=== PATIENT | female | born 1960 ===

== ENCOUNTER 2017-12-06 12:45 | Inpatient (IN) | payer MEDICARE, OTHER ==
[2017-12-06 12:45] VITALS: BMI 26.0
--- NOTE | 2017-12-06 13:17 | C.PDOC ---
History Of Present Illness 57 year old female with PMHx of asthma and HTN brought to ED by ambulance for evaluation of productive cough with white sputum, sore throat, shortness of breath, and wheezing since yesterday. She states her symptoms feel similar to prior asthma exacerbations, and states she has been using her inhaler without relief. Patient denies chest pain, palpitations, fever, leg edema. Time Seen by Provider: 12/06/17 12:47 Chief Complaint (Nursing): Shortness Of Breath History Per: Patient History/Exam Limitations: no limitations Onset/Duration Of Symptoms: Days (1) Current Symptoms Are (Timing): Still Present Exacerbating Factor(s): Coughing Associated Symptoms: Productive Cough. denies: Heart Racing, Leg/Calf Pain, Ankle/Leg Swelling Additional History Per: Patient Past Medical History Reviewed: Historical Data, Nursing Documentation, Vital Signs Vital Signs: Last Vital Signs Temp 98.3 F 12/11/17 07:15 Pulse 87 12/11/17 07:15 Resp 20 12/11/17 07:15 BP 159/65 H 12/11/17 09:31 Pulse Ox 99 12/11/17 12:41 - Medical History PMH: Asthma, CHF, Diabetes, HTN, Hypercholesterolemia Surgical History: Cholecystectomy, Coronary Stent (x3) - [email or web address] Procedures CORONAR ARTERIOGR-2 CATH (06/02/14) LEFT HEART CARDIAC CATH (06/02/14) LT HEART ANGIOCARDIOGRAM (06/02/14) NON-INVASIVE MECHANICAL VENTILATION (06/02/14) OTHER ENDOSCOPY OF SM INTEST (06/02/14) Family History: States: No Known Family Hx - Social History Hx Tobacco Use: No (NO ANSWER) Hx Alcohol Use: No Hx Substance Use: No - Immunization History Hx Tetanus Toxoid Vaccination: No Hx Influenza Vaccination: No Hx Pneumococcal Vaccination: No Review Of Systems Constitutional: Negative for: Fever, Chills ENT: Positive for: Throat Pain. Negative for: Nose Congestion Cardiovascular: Negative for: Chest Pain, Palpitations, Edema Respiratory: Positive for: Cough, Shortness of Breath, Sputum, Wheezing. Negative for: Hemoptysis Gastrointestinal: Negative for: Nausea, Vomiting, Abdominal Pain Skin: Negative for: Rash Neurological: Negative for: Headache, Dizziness Physical Exam - Physical Exam Appears: Well, Non-toxic, Other (mildly uncomfortable) Skin: Normal Color, Warm, Dry Head: Normacephalic Eye(s): bilateral: Normal Inspection Oral Mucosa: Moist Throat: Normal, No Erythema, No Exudate Neck: Supple Cardiovascular: Rhythm Regular Respiratory: No Accessory Muscle Use, No Rales, No Rhonchi, Wheezing ( expiratory wheezing bilaterally), Other (coughs intermittently; speaking in full sentences) Gastrointestinal/Abdominal: Normal Exam, Bowel Sounds, Soft, No Tenderness Extremity: Normal ROM, No Pedal Edema, No Calf Tenderness Pulses: Left Dorsalis Pedis: Normal, Right Dorsalis Pedis: Normal Neurological/Psych: Oriented x3, Normal Speech ED Course And Treatment - Laboratory Results Result Diagrams: 12/10/17 06:29 12/10/17 06:29 ECG: Interpreted By Me, Viewed By Me (NSR 97 bpm, left axis deviation, intraventricular block, no acute ST changes - unchanged from prior EKG 07/06/15) ECG Interpretation: No Acute Changes O2 Sat by Pulse Oximetry: 99 (RA) Pulse Ox Interpretation: Normal Progress Note: Blood work, CXR, EKG ordered and reviewed. Patient given IV solumedrol, IV magnesium sulfate 2G and nebulizer treatments. Reevaluation Time: 16:25 Reassessment Condition: Improved (Patient reassessed, states she feels only mildly improved. On exam, she has improved air entry B/L with decreased wheezing. However best peak flow is only 150, Pox only 92-93% on RA. CXR shows possible right sided infiltrate? - will treat with IV Azithromycin and Rocephin.) - Physician Consult Information Physician Contacted: Georges Reyna Outcome Of Conversation: Discussed patient with Dr. Reyna, agrees with admission for asthma exacerbation. Disposition - Disposition Disposition: HOSPITALIZED Disposition Time: 16:37 Condition: STABLE - Clinical Impression Clinical Impression: Asthma exacerbation - Scribe Statement The provider has reviewed the documentation as recorded by the Scribe Rosalio Wasserman All medical record entries made by the Scribe were at my direction and personally dictated by me. I have reviewed the chart and agree that the record accurately reflects my personal performance of the history, physical exam, medical decision making, and the department course for this patient. I have also personally directed, reviewed, and agree with the discharge instructions and disposition. Decision To Admit - Pt Status Changed To: Hospital Disposition Of: Observation - . Bed Request Type: Telemetry Admitting Physician: Georges Reyna Patient Diagnosis: Asthma exacerbation
[2017-12-06] MEDS ORDERED: Albuterol 0.083% Inhal Sol (2.5 mg/3 mL) UD IH STA ×3 (13:20→14:19)
[2017-12-06] MEDS ORDERED: Albuterol 0.083% Inhal Sol (2.5 mg/3 mL) UD ONE ×4 (13:26→16:59)
[2017-12-06] MEDS ORDERED: Albuterol-Ipratrop 3 mg / 0.5 (3 ml) UD INH STA (14:18)
[2017-12-06] MEDS ORDERED: Albuterol-Ipratrop 3 mg / 0.5 (3 ml) UD ONE (14:35)
[2017-12-06] MEDS ORDERED: Magnesium Sulfate 1 gm in D5W 1 GM/100 ML BAG IV ONE (14:47)
[2017-12-06] MEDS ORDERED: MethylPREDNISolone 40 mg Vial IVP STA (14:48)
[2017-12-06] MEDS ORDERED: MethylPREDNISolone 40 mg Vial ONE (15:05)
[2017-12-06] MEDS ORDERED: Magnesium Sulfate 1 gm in D5W 2 GM/200 ML BAG IVPB ONE (15:05)
[2017-12-06 15:07] LABS: BASO # 0.1 K/uL (0.0-0.2); BASO % 0.6 % (0.0-2.0); EOS % 0.2 % (0.0-4.0); HEMOGLOBIN 10.6 g/dL (11.0-16.0); LYMPH # 1.3 K/uL (1.0-4.3); LYMPH % 10.4 % (20.0-40.0); MEAN CELL VOLUME 78.3 fL (81.0-99.0); MEAN CORPUSCULAR HEMOGLOBIN 26.1 pg (27.0-31.0); MEAN CORPUSCULAR HGB CONC 33.3 g/dL (33.0-37.0); MEAN PLATELET VOLUME 8.2 fL (7.2-11.7); MONO # 0.7 K/uL (0.0-0.8); MONO % 5.4 % (0.0-10.0); NEUT # 10.3 K/uL (1.8-7.0); NEUT % 83.4 % (50.0-75.0); RBC 4.06 Mil/uL (3.80-5.20); RED CELL DISTRIBUTION WIDTH 14.8 % (11.5-14.5); WHITE BLOOD COUNT 12.4 K/uL (4.8-10.8)
[2017-12-06 15:26] LABS: ALB/GLOB RATIO 1.2 (1.0-2.1); ALBUMIN 4.3 g/dL (3.5-5.0); ALT/SGPT 69 U/L (9-52); AST/SGOT 61 U/L (14-36); BLOOD UREA NITROGEN 20 mg/dL (7-17); CALCIUM 9.1 mg/dl (8.6-10.4); GFR AFRICAN-AMERICAN > 60; GFR NON-AFRICAN AMERICAN 57
[2017-12-06 16:17] LABS: B-TYPE NATRIURETIC PEPTIDE 788 pg/mL (0-900)
[2017-12-06] MEDS ORDERED: Azithromycin 500 MG in Sodium Chloride 0.9% 250 ML IVPB STA (16:43)
[2017-12-06] MEDS ORDERED: cefTRIAXone IV 1 gm in Dextros 50 ML IV STA (16:43)
[2017-12-06] MEDS: Albuterol 0.083% Inhal Sol (2.5 mg/3 mL) UD IH SCH ×2 (17:01→19:15)
[2017-12-06] MEDS ORDERED: Azithromycin 500 MG in Sodium Chloride 0.9% 250 ML IVPB ONE (18:00)
--- NOTE | 2017-12-06 18:01 | RAD ---
HISTORY: PRODUCTIVE COUGH, SOB COMPARISON: No prior. TECHNIQUE: Chest PA and lateral FINDINGS: LUNGS: Interval development of reticular interstitial infiltrate more prominent in the lower half of the lungs. . No focal consolidation. PLEURA: No significant pleural effusion identified. No pneumothorax apparent. CARDIOVASCULAR: Normal. OSSEOUS STRUCTURES: No significant abnormalities. VISUALIZED UPPER ABDOMEN: Normal. OTHER FINDINGS: None. IMPRESSION: Reticular interstitial infiltrate more prominent in the lower portions of the lungs. No focal consolidation.
[2017-12-06] MEDS: MethylPREDNISolone 40 mg Vial IVP SCH (21:10)
[2017-12-06] MEDS: (Novolog) Insulin Aspart, Recombinant 100 u/ml 10 ml vial SC SCH (22:03)
[2017-12-06] MEDS ORDERED: (Novolin 70/30) NPH/Regular 70/30 Units/ml 10 ml vial SC ONE (23:25)
[2017-12-07] MEDS: Albuterol-Ipratrop 3 mg / 0.5 (3 ml) UD INH SCH ×4 (01:19→20:00)
[2017-12-07] MEDS ORDERED: (Novolin R) Insulin Human Regular 100 units/ml vial SC ONE (02:01)
[2017-12-07] MEDS ORDERED: guaiFENesin DM 200 mg-20 mg/10 ml UD PO ONE (02:42)
[2017-12-07] MEDS: MethylPREDNISolone 40 mg Vial IVP SCH ×3 (05:15→21:51)
[2017-12-07 06:42] LABS: HEMOGLOBIN 9.8 g/dL (11.0-16.0); MEAN CELL VOLUME 78.9 fL (81.0-99.0); MEAN CORPUSCULAR HEMOGLOBIN 26.1 pg (27.0-31.0); MEAN CORPUSCULAR HGB CONC 33.1 g/dL (33.0-37.0); MEAN PLATELET VOLUME 8.5 fL (7.2-11.7); RBC 3.74 Mil/uL (3.80-5.20); WHITE BLOOD COUNT 9.4 K/uL (4.8-10.8)
[2017-12-07 07:05] LABS: ALB/GLOB RATIO 1.2 (1.0-2.1); ALBUMIN 3.9 g/dL (3.5-5.0); ALT/SGPT 53 U/L (9-52); AST/SGOT 34 U/L (14-36); BLOOD UREA NITROGEN 32 mg/dL (7-17); CALCIUM 8.8 mg/dl (8.6-10.4); GFR AFRICAN-AMERICAN > 60; GFR NON-AFRICAN AMERICAN 51
[2017-12-07] MEDS ORDERED: (Novolog) Insulin Aspart, Recombinant 100 u/ml 10 ml vial SC STA (07:05)
[2017-12-07] MEDS ORDERED: (Novolin 70/30) NPH/Regular 70/30 Units/ml 10 ml vial SC SCH (07:30)
[2017-12-07] MEDS: (Novolin 70/30) NPH/Regular 70/30 Units/ml 10 ml vial SC SCH ×3 (08:22→17:40)
[2017-12-07] MEDS: (Novolog) Insulin Aspart, Recombinant 100 u/ml 10 ml vial SC SCH ×4 (08:23→21:47)
[2017-12-07] MEDS: Potassium Chloride 10 mEq ER Tab PO SCH (09:34)
[2017-12-07] MEDS: Enoxaparin 30 mg Syringe SC SCH (09:35)
[2017-12-07] MEDS: Azithromycin 500 MG in Sodium Chloride 0.9% 250 ML IVPB SCH (11:22)
[2017-12-07] MEDS: guaiFENesin DM 200 mg-20 mg/10 ml UD PO PRN ×2 (16:34→21:51)
--- NOTE | 2017-12-07 16:40 | CARD ---
APPROVED REPORT EKG Measurement Heart [id number] <Conclusion> Normal sinus rhythm Left axis deviation Nonspecific intraventricular block Cannot rule out Septal infarct, age undetermined T wave abnormality, consider lateral ischemia Abnormal ECG
[2017-12-08] MEDS: Albuterol-Ipratrop 3 mg / 0.5 (3 ml) UD INH SCH ×5 (00:49→19:36)
[2017-12-08] MEDS: MethylPREDNISolone 40 mg Vial IVP SCH ×3 (05:59→21:48)
[2017-12-08] MEDS: guaiFENesin DM 200 mg-20 mg/10 ml UD PO PRN ×2 (06:02→16:46)
[2017-12-08] MEDS: (Novolog) Insulin Aspart, Recombinant 100 u/ml 10 ml vial SC SCH ×4 (06:33→21:47)
[2017-12-08 08:10] LABS: BASO % 0.1 % (0.0-2.0); HEMOGLOBIN 10.1 g/dL (11.0-16.0); LYMPH # 1.2 K/uL (1.0-4.3); LYMPH % 6.2 % (20.0-40.0); MEAN CELL VOLUME 77.5 fL (81.0-99.0); MEAN CORPUSCULAR HEMOGLOBIN 26.5 pg (27.0-31.0); MEAN CORPUSCULAR HGB CONC 34.2 g/dL (33.0-37.0); MEAN PLATELET VOLUME 8.3 fL (7.2-11.7); MONO # 1.1 K/uL (0.0-0.8); MONO % 5.3 % (0.0-10.0); NEUT # 17.5 K/uL (1.8-7.0); NEUT % 88.4 % (50.0-75.0); PLATELET COUNT 350 K/uL (130-400); RED CELL DISTRIBUTION WIDTH 15.2 % (11.5-14.5)
[2017-12-08 08:12] LABS: WHITE BLOOD COUNT 19.8 K/uL (4.8-10.8)
[2017-12-08 08:25] LABS: BLOOD UREA NITROGEN 33 mg/dL (7-17); CALCIUM 8.9 mg/dl (8.6-10.4); GFR AFRICAN-AMERICAN > 60; GFR NON-AFRICAN AMERICAN 57
--- NOTE | 2017-12-08 08:53 | HP ---
HISTORY OF PRESENT ILLNESS: This is a 57-year-old [place] female with history of multiple medical problems including coronary artery disease, type 2 diabetes mellitus, hypertension, presented to the emergency room with symptoms of shortness of breath and wheezing that has been not improving in spite of using of home medications for three days. The patient was evaluated in the emergency room and she was given both steroid as well as albuterol and still she was hypoxic with O2 saturation on the lower 90s and not feeling well. The patient was started on steroids, Rocephin and azithromycin and admitted for further management. REVIEW OF SYSTEM: Other review of system is negative. ALLERGIES: POSITIVE FOR ENALAPRIL. MEDICATIONS: Reviewed as per AUG. PAST MEDICAL HISTORY: Hypertension, type 2 diabetes mellitus, coronary artery disease, hypercholesterolemia, diabetic neuropathy. SOCIAL HISTORY: No history of smoking, EtOH or substance abuse. FAMILY HISTORY: Not contributory. PHYSICAL EXAMINATION: GENERAL: The patient is in bed, not in any cardiopulmonary distress. VITAL SIGNS: Blood pressure 147/53, temperature 98.2, respiratory rate 20, and pulse 86. HEENT: Pupils equal, reactive to light. Normal-appearing mucosa of the conjunctivae, oropharynx and nasal membrane mucosa. NECK: Supple. No JVD. No carotid bruit. No lymph nodes. N thyromegaly. CHEST AND LUNGS: Bilateral symmetrical expansion. Good air exchange. No rales. There are scattered rhonchi all over lung landers. CARDIOVASCULAR SYSTEM: PMI not localized. S1, S2. No additional sounds. ABDOMEN: Normoactive bowel sounds. No tenderness. No organomegaly. No masses. EXTREMITIES: No cyanosis, no clubbing, no edema. REPAIR CLERK: Alert, awake, oriented x3. No neurological deficit could be appreciated. ASSESSMENT: Exacerbation of chronic obstructive pulmonary disease, possible atypical pneumonia, coronary artery disease, type 2 diabetes mellitus, uncontrolled. PLAN: Continue insulin and metformin. Continue current IV antibiotics and steroid. Check peak flow pre and post treatment. Matt MD Axel
[2017-12-08 08:57] LABS: ANISOCYTOSIS SLIGHT; BANDS 1 % (0-2); EOSINOPHIL 1 % (0-4); HYPOCHROMIC SLIGHT; LYMPHOCYTE 8 % (20-40); MICROCYTOSIS SLIGHT; MONOCYTE 4 % (0-10); NEUTROPHIL 85 % (50-75); PLATELET ESTIMATE NORMAL (NORMAL); POIKILOCYTOSIS SLIGHT; REACTIVE LYMPHOCYTES 1 % (0-0); TOTAL CELLS COUNTED 100
[2017-12-08 08:58] LABS: OVALOCYTES SLIGHT
[2017-12-08] MEDS: Enoxaparin 30 mg Syringe SC SCH (10:24)
[2017-12-08] MEDS: (Novolin 70/30) NPH/Regular 70/30 Units/ml 10 ml vial SC SCH ×2 (10:25→17:59)
[2017-12-08] MEDS: Potassium Chloride 10 mEq ER Tab PO SCH (10:26)
[2017-12-08] MEDS: Azithromycin 500 MG in Sodium Chloride 0.9% 250 ML IVPB SCH (11:40)
[2017-12-09] MEDS: Albuterol-Ipratrop 3 mg / 0.5 (3 ml) UD INH SCH ×4 (01:30→19:36)
[2017-12-09] MEDS: MethylPREDNISolone 40 mg Vial IVP SCH ×3 (06:18→22:05)
[2017-12-09] MEDS: (Novolog) Insulin Aspart, Recombinant 100 u/ml 10 ml vial SC SCH ×4 (08:03→22:04)
[2017-12-09] MEDS: Potassium Chloride 10 mEq ER Tab PO SCH (09:17)
[2017-12-09] MEDS: Enoxaparin 30 mg Syringe SC SCH (09:17)
[2017-12-09] MEDS ORDERED: Albuterol-Ipratrop 3 mg / 0.5 (3 ml) UD INH STA (09:20)
[2017-12-09] MEDS: (Novolin 70/30) NPH/Regular 70/30 Units/ml 10 ml vial SC SCH ×2 (09:30→17:16)
--- NOTE | 2017-12-09 22:49 | PN ---
DATE: 12/09/2017 DAILY PROGRESS NOTE SUBJECTIVE: The patient was seen today, 12/09/2017. She is slightly improving and less wheezing and less shortness of breath at rest but she has shortness of breath on exertion. OBJECTIVE: VITAL SIGNS: Blood pressure 163/69, temperature 97.7, respiratory rate 20, and pulse 92. HEENT: Pupils equal, reactive to light and accommodation. NECK: Supple. No JVD. No carotid bruit. No lymph node. No thyromegaly. CHEST AND LUNGS: Bilateral symmetrical expansion. Decreased rhonchi bilaterally. CARDIOVASCULAR SYSTEM: PMI not localized. S1, S2. No additional sounds. ABDOMEN: Normoactive bowel sounds. No tenderness. No organomegaly. No masses. EXTREMITIES: No cyanosis, no clubbing, no edema. TOOL RENTAL TECHNICIAN: Alert, awake, and oriented x3. No neurological deficit could be appreciated. ASSESSMENT: Hypertension, uncontrolled type 2 diabetes mellitus, exacerbation of bronchial asthma. PLAN: We will resume bisoprolol and continue current steroid as well as bronchodilator. Georges Reyna MD
--- NOTE | 2017-12-09 23:26 | PN ---
DATE: 12/08/2017 DAILY PROGRESS NOTE SUBJECTIVE: The patient was seen on 12/08/2017. She still has wheezing and cough and shortness of breath both in exertion as well as at rest. Blood sugar also was in the region of the 400-500. OBJECTIVE: VITAL SIGNS: Blood pressure 151/67, temperature 98.4, respiratory rate 20, and pulse 89. HEENT: Pupils equal, reactive to light. Normal-appearing mucosa of the conjunctivae, oropharynx and nasal membrane mucosa. NECK: Supple. No JVD. No carotid bruit. No lymph node. No thyromegaly. CHEST AND LUNGS: Bilateral symmetrical expansion. Diffuse scattered rhonchi all over lung field with prolonged expiration. CARDIOVASCULAR SYSTEM: PMI not localized. S1, S2. No additional sounds. ABDOMEN: Normoactive bowel sounds. No tenderness. No organomegaly. No masses. EXTREMITIES: No cyanosis, no clubbing, no edema. DICER MACHINE OPERATOR: Alert, awake, oriented x2 and no neurological deficit could be appreciated. ASSESSMENT: 1. Exacerbation of bronchial asthma. 2. History of coronary artery disease, status post percutaneous coronary intervention. 3. Hypertension. 4. Uncontrolled type 2 diabetes mellitus. PLAN: Continue current dose of steroid after it was decreased. Continue bronchodilators and current medications. Georges Reyna MD
[2017-12-10] MEDS: guaiFENesin DM 200 mg-20 mg/10 ml UD PO PRN ×4 (00:09→15:02)
[2017-12-10] MEDS: Albuterol-Ipratrop 3 mg / 0.5 (3 ml) UD INH SCH ×4 (02:48→19:27)
[2017-12-10] MEDS: MethylPREDNISolone 40 mg Vial IVP SCH ×3 (05:24→22:20)
[2017-12-10 06:48] LABS: BASO % 0.2 % (0.0-2.0); HEMOGLOBIN 10.5 g/dL (11.0-16.0); LYMPH # 1.6 K/uL (1.0-4.3); LYMPH % 8.5 % (20.0-40.0); MEAN CELL VOLUME 78.2 fL (81.0-99.0); MEAN CORPUSCULAR HEMOGLOBIN 25.8 pg (27.0-31.0); MEAN PLATELET VOLUME 8.4 fL (7.2-11.7); MONO # 1.3 K/uL (0.0-0.8); MONO % 6.6 % (0.0-10.0); NEUT # 16.1 K/uL (1.8-7.0); NEUT % 84.7 % (50.0-75.0); PLATELET COUNT 395 K/uL (130-400); RBC 4.07 Mil/uL (3.80-5.20); WHITE BLOOD COUNT 19.1 K/uL (4.8-10.8)
[2017-12-10 08:15] LABS: BLOOD UREA NITROGEN 32 mg/dL (7-17); CALCIUM 9.2 mg/dl (8.6-10.4); GFR AFRICAN-AMERICAN > 60; GFR NON-AFRICAN AMERICAN > 60
[2017-12-10] MEDS: (Novolog) Insulin Aspart, Recombinant 100 u/ml 10 ml vial SC SCH ×4 (08:41→21:32)
[2017-12-10] MEDS: (Novolin 70/30) NPH/Regular 70/30 Units/ml 10 ml vial SC SCH ×2 (09:32→18:35)
[2017-12-10] MEDS: Potassium Chloride 10 mEq ER Tab PO SCH (09:37)
[2017-12-10] MEDS: Enoxaparin 30 mg Syringe SC SCH (09:38)
[2017-12-10 10:08] LABS: NEUTROPHIL 86 % (50-75); TOTAL CELLS COUNTED 100
[2017-12-10 10:09] LABS: ANISOCYTOSIS SLIGHT; HYPOCHROMIC SLIGHT; LYMPHOCYTE 7 % (20-40); MONOCYTE 7 % (0-10); OVALOCYTES SLIGHT; PLATELET ESTIMATE NORMAL (NORMAL)
[2017-12-10] MEDS: Azithromycin 500 MG in Sodium Chloride 0.9% 250 ML IVPB SCH (19:20)
--- NOTE | 2017-12-10 20:49 | PN ---
DATE: 12/10/2017 SUBJECTIVE: The patient is seen today, 08/12/2017. She still has significant cough and shortness of breath and wheezing. OBJECTIVE: VITAL SIGNS: Blood pressure is 182/70, temperature 98.3, respiratory rate 20, and pulse 100. HEENT: Normal-appearing mucosa of the conjunctivae. NECK: Supple. No JVD. No carotid bruit. No lymph node. No thyromegaly. CHEST AND LUNGS: Bilateral symmetrical expansion. Good air exchange. Diffuse scattered rhonchi with prolonged expiration all over lung landers. CARDIOVASCULAR SYSTEM: PMI not localized. S1, S2. No additional sounds. ABDOMEN: Normoactive bowel sounds. No tenderness. No organomegaly. No masses. EXTREMITIES: No cyanosis, no clubbing, no edema. CENTRAL NERVOUS SYSTEM: Alert, awake, oriented x2. No neurological deficit could be appreciated. ASSESSMENT: Clinical pneumonia, exacerbation of chronic obstructive pulmonary disease; type 2 diabetes mellitus, uncontrolled; coronary artery disease. PLAN: Continue current medications and management. Decrease Solu-Medrol to 20 mg every 12 hours. Continue IV antibiotics. Cardiology consult, Dr. Villegas. I would be away from 12/11/2017 to 12/14/2017 and the hospitalist will be covering. Georges Reyna MD
[2017-12-11] MEDS: guaiFENesin DM 200 mg-20 mg/10 ml UD PO PRN ×4 (00:19→21:32)
[2017-12-11] MEDS: Albuterol-Ipratrop 3 mg / 0.5 (3 ml) UD INH SCH ×4 (01:25→19:36)
[2017-12-11] MEDS: (Novolog) Insulin Aspart, Recombinant 100 u/ml 10 ml vial SC SCH ×4 (08:30→21:27)
[2017-12-11] MEDS: Potassium Chloride 10 mEq ER Tab PO SCH (09:31)
[2017-12-11] MEDS: Enoxaparin 30 mg Syringe SC SCH (09:32)
[2017-12-11] MEDS: MethylPREDNISolone 40 mg Vial IVP SCH (09:32)
[2017-12-11] MEDS: (Novolin 70/30) NPH/Regular 70/30 Units/ml 10 ml vial SC SCH ×2 (09:47→17:38)
--- NOTE | 2017-12-11 16:10 | CP.PCM.PN ---
<Kalina Wray - Last Filed: 12/11/17 16:15> Subjective - Date & Time of Evaluation Date of Evaluation: 12/11/17 Time of Evaluation: 07:00 - Subjective Subjective: PGY2- Medicine note for Dr. Steele Patient seen and examined at bedside and in no acute distress. Patient says she is feeling better, but can still hear herself wheezing sometimes especially on expiration. Patient's cough is improving and the phlegm is less yellow and more white. Patient denies headache, chest pain, shortness of breath, abdominal pain , nausea, vomiting, constipation, or diarrhea. Objective - Vital Signs/Intake and Output Vital Signs (last 24 hours): Temp Pulse Resp BP Pulse Ox 97.5 F L 105 H 20 169/83 H 98 12/11/17 15:05 12/11/17 15:05 12/11/17 15:05 12/11/17 15:05 12/11/17 15:05 Intake and Output: 12/11/17 12/11/17 06:59 18:59 Intake Total 450 600 Balance 450 600 - Medications Medications: Current Medications Albuterol/Ipratropium (Duoneb 3 Mg/0.5 Mg (3 Ml) Ud) 3 ml INH RQ6 [facility] Last Admin: 12/11/17 13:18 Dose: 3 ml Aspirin (Aspirin Chewable) 81 mg PO DAILY [facility] Last Admin: 12/11/17 09:31 Dose: 81 mg Bisoprolol Fumarate (Zebeta) 5 mg PO BID [facility] Last Admin: 12/11/17 09:31 Dose: 5 mg Enoxaparin Sodium (Lovenox) 30 mg SC DAILY [facility] Last Admin: 12/11/17 09:32 Dose: 30 mg Furosemide (Lasix) 20 mg IVP DAILY [facility] Last Admin: 12/11/17 09:31 Dose: 20 mg Guaifenesin/Dextromethorphan (Robitussin Dm) 10 ml PO Q4H PRN PRN Reason: Cough and congestion Last Admin: 12/11/17 09:31 Dose: 10 ml Hydralazine HCl (Apresoline) 25 mg PO DAILY [facility] Last Admin: 12/11/17 09:31 Dose: 25 mg Azithromycin 500 mg/ Sodium (Chloride) 250 mls @ 250 mls/hr IVPB DAILY@1800 PETER PRN Reason: Protocol Last Admin: 12/10/17 19:20 Dose: 250 mls/hr Ceftriaxone Sodium 1 gm/ (Sodium Chloride) 100 mls @ 100 mls/hr IVPB DAILY@ 1600 PETER PRN Reason: Protocol Last Admin: 12/10/17 17:35 Dose: 100 mls/hr Insulin Aspart (Novolog) 0 unit SC ACHS [facility] PRN Reason: Protocol Last Admin: 12/11/17 11:47 Dose: 12 units Insulin Human Isoph/Insulin Regular (Novolin 70/30 (70/30 Units/Ml) 10 Ml) 40 units SC BID [facility] Last Admin: 12/11/17 09:47 Dose: 40 units Losartan Potassium (Cozaar) 100 mg PO DAILY [facility] Last Admin: 12/11/17 09:31 Dose: 100 mg Metformin HCl (Glucophage) 500 mg PO TIDCC [facility] Last Admin: 12/11/17 11:48 Dose: 500 mg Methylprednisolone (Solu-Medrol) 20 mg IVP DAILY [facility] Potassium Chloride (Klor-Con 10) 10 meq PO DAILY [facility] Last Admin: 12/11/17 09:31 Dose: 10 meq Rosuvastatin Calcium (Crestor) 20 mg PO HS [facility] Last Admin: 12/10/17 22:20 Dose: 20 mg Sitagliptin Phosphate (Januvia) 100 mg PO DAILY [facility] Last Admin: 12/11/17 09:31 Dose: 100 mg - Labs Labs: 12/10/17 06:29 12/10/17 06:29 - Constitutional Appears: Well, Non-toxic, No Acute Distress - Head Exam Head Exam: ATRAUMATIC, NORMAL INSPECTION, NORMOCEPHALIC - Eye Exam Eye Exam: EOMI, Normal appearance - ENT Exam ENT Exam: Mucous Membranes Moist - Respiratory Exam Respiratory Exam: Wheezes, NORMAL BREATHING PATTERN - Cardiovascular Exam Cardiovascular Exam: REGULAR RHYTHM, RRR, +S1, +S2 - GI/Abdominal Exam GI & Abdominal Exam: Soft, Normal Bowel Sounds. absent: Tenderness - Extremities Exam Extremities Exam: Full ROM. absent: Normal Inspection - Back Exam Back Exam: NORMAL INSPECTION - Neurological Exam Neurological Exam: Alert, Awake, Oriented x3 - Psychiatric Exam Psychiatric exam: Normal Affect, Normal Mood - Skin Skin Exam: Intact, Normal Color, Warm Assessment and Plan - Assessment and Plan (Free Text) Assessment: Pneumonia cxray 12/06: reticular interstitial infiltrate more prominent in lower portions of the lungs. No focal consolidation. continue antibiotics COPD exacerbation Solumedrol decreased to 20mg po daily for 12/12 (from BID) Duonebs HTN Hydralazine 25mg po daily Cozaar 100mg po daily HLD Cozaar 100mg po daily DMII Metformin 500mg po tid ISS Novolin 40 u sc bid Januvia 100mg po daily accuchecks CAD ASA 81mg po daily Cozaar 100mg po daily Cozaar 100mg po daily f/u cardiology consult, Dr. Villegas, help appreciated Prophylaxis Lovenox <Lisa Steele V - Last Filed: 12/12/17 18:52> Objective - Vital Signs/Intake and Output Vital Signs (last 24 hours): Temp Pulse Resp BP Pulse Ox 98.1 F 88 18 144/82 97 12/12/17 15:37 12/12/17 15:37 12/12/17 15:37 12/12/17 15:37 12/12/17 15:37 - Medications Medications: Current Medications Albuterol/Ipratropium (Duoneb 3 Mg/0.5 Mg (3 Ml) Ud) 3 ml INH RQ6 [facility] Last Admin: 12/12/17 14:14 Dose: 3 ml Aspirin (Aspirin Chewable) 81 mg PO DAILY [facility] Last Admin: 12/12/17 10:30 Dose: 81 mg Bisoprolol Fumarate (Zebeta) 5 mg PO BID [facility] Last Admin: 12/12/17 17:23 Dose: 5 mg Enoxaparin Sodium (Lovenox) 30 mg SC DAILY [facility] Last Admin: 12/12/17 10:28 Dose: 30 mg Furosemide (Lasix) 20 mg IVP DAILY [facility] Last Admin: 12/12/17 10:30 Dose: 20 mg Guaifenesin/Dextromethorphan (Robitussin Dm) 10 ml PO Q4H PRN PRN Reason: Cough and congestion Last Admin: 12/12/17 10:39 Dose: 10 ml Hydralazine HCl (Apresoline) 25 mg PO DAILY [facility] Last Admin: 12/12/17 10:28 Dose: 25 mg Azithromycin 500 mg/ Sodium (Chloride) 250 mls @ 250 mls/hr IVPB DAILY@1800 [facility] PRN Reason: Protocol Last Admin: 12/12/17 17:23 Dose: 250 mls/hr Ceftriaxone Sodium 1 gm/ (Sodium Chloride) 100 mls @ 100 mls/hr IVPB DAILY@ 1600 PETER PRN Reason: Protocol Last Admin: 12/12/17 16:22 Dose: 100 mls/hr Insulin Aspart (Novolog) 0 unit SC ACHS [facility] PRN Reason: Protocol Insulin Human Isoph/Insulin Regular (Novolin 70/30 (70/30 Units/Ml) 10 Ml) 40 units SC BID [facility] Last Admin: 12/12/17 17:24 Dose: 40 units Losartan Potassium (Cozaar) 100 mg PO DAILY [facility] Last Admin: 12/12/17 10:30 Dose: 100 mg Metformin HCl (Glucophage) 500 mg PO TIDCC [facility] Last Admin: 12/12/17 17:23 Dose: 500 mg Methylprednisolone (Solu-Medrol) 10 mg IVP DAILY [facility] Potassium Chloride (Klor-Con 10) 10 meq PO DAILY [facility] Last Admin: 12/12/17 10:31 Dose: 10 meq Rosuvastatin Calcium (Crestor) 20 mg PO HS [facility] Last Admin: 12/11/17 21:28 Dose: 20 mg Sitagliptin Phosphate (Januvia) 100 mg PO DAILY [facility] Last Admin: 12/12/17 10:28 Dose: 100 mg - Labs Labs: 12/12/17 08:37 12/12/17 11:56 Attending/Attestation - Attestation I have personally seen and examined this patient.: Yes I have fully participated in the care of the patient.: Yes I have reviewed all pertinent clinical information, including history, physical exam and plan: Yes Notes (Text): This is a late computer entry for 12/11/2017. Hospitalist service covering for primary attending starting today. Patient undergoing hospitalization for clinical pneumonia and COPD exacerbation. Patient is currently on IV antibiotics to cover for community-acquired pneumonia. Patient is also on IV steroids which have been slowly tapered. All my lung exam patient does have some wheezing and could benefit from additional IV steroids and IV antibiotic. Patient sugar uncontrolled this morning 400s likely secondary to the steroids. Plan for possible discharge tomorrow pending improvement in lung exam. Patient does have a history of coronary artery disease cardiology is on consult will follow recommendations. Assessment/Plan 1) Pneumonia * cxray 12/06: reticular interstitial infiltrate more prominent in lower portions of the lungs. No focal consolidation. * Azithromycin 500mg IV q daily (active since 12/07/17) * Rocephin 1 gram IV q daily (active since 12/10/17) * Duonebs RQ6H * Robotussin DM 10ml PO Q4H PRN cough and cougestion 2) COPD exacerbation * Solumedrol decreased to 20mg po daily for 12/12 (from BID) * Duonebs RQ6H * Robotussin DM 10ml PO Q4H PRN cough and cougestion 3) Hypertension * Hydralazine 25mg po daily * Cozaar 100mg po daily * lasix 20mg IV qdaily * Klor-con 10meq PO daily 4) Lipid Disorder * Crestor 20mg POqHS 5) DMII * Metformin 500mg po tid * ISS * Novolin 70/30 40 u sc bid * Januvia 100mg po daily * accuchecks QAC and HS * Novolog sliding scale 6) History of Coronary Artery Disease * f/u cardiology consult, Dr. Villegas, help appreciated * ASA 81mg po daily * Cozaar 100mg po daily * Crestor 20mg POqHS * lasix 20mg IV qdaily * Klor-con 10meq PO daily 7) Prophylaxis * Lovenox 30mg subqdaily
[2017-12-11] MEDS: Azithromycin 500 MG in Sodium Chloride 0.9% 250 ML IVPB SCH (19:41)
--- NOTE | 2017-12-11 23:36 | CON ---
DATE: 12/11/2017 REASON FOR CONSULTATION: Abnormal EKG. HISTORY OF PRESENT ILLNESS: The patient is a 57-year-old [place] female who has a history of hypertension, diabetes mellitus, advanced diabetic neuropathy. The patient is nearly legally blind after multiple retinal surgeries. Has a history of coronary artery disease, status post PCI in the past. She presented because of as a patient of bronchial asthma and EKG reveals sinus rhythm with left axis deviation and nonspecific interventricular conduction delay. The patient denies any retrosternal chest pain. The patient is still short of breath and wheezing at times, and she is experiencing productive cough. MEDICATIONS: Hydralazine 25 mg once a day, aspirin 81 mg once a day, IV Rocephin 1 gm daily, IV Zithromax 500 mg daily, Cozaar 100 mg once a day, Crestor 20 mg once a day, Glucophage 500 mg t.i.d., Januvia 100 mg daily, Lasix 20 mg intravenously once a day, Lovenox 30 mg subcutaneous once a day, Solu-Medrol 20 mg intravenously every 12 hours, and Zebeta 5 mg twice a day. REVIEW OF SYSTEMS: No fever or chills. No dizziness or syncope. No palpitations. PHYSICAL EXAMINATION: GENERAL: The patient is a middle-aged female who does not appear to be in any distress. VITAL SIGNS: Blood pressure 167/75, heart rate 87, temperature 98.3, respirations 20. HEENT: The patient has very poor visual acuity and neck rigidity. CHEST: Minimal bilateral expiratory wheezing. HEART: S1 and S2 regular. ABDOMEN: Soft. EXTREMITIES: No edema. LABORATORY DATA: Hemoglobin 10.5, hematocrit 31.8, white count 19.1, platelet count 395,000. SMA-7: Sodium 135, potassium 4.4, chloride 96, CO2 of 25, glucose 149, BUN 32, creatinine 0.9. Chest x-ray revealed mild bilateral interstitial and alveolar infiltrate. The most recent echo was in 05/2014, which revealed mild anterolateral hypokinesis with ejection fraction estimated to 26% and right ventricular systolic pressure greater than 60 mmHg. Cardiac catheterization performed during the month of 05/2014 revealed patent LAD stent and patent circumflex artery stent with 70% stenosis of the mid segment over the posterior descending branch of the right coronary artery and normal ejection fraction contrary to what the echo showed. The most recent echo was from 06/26/2015 and revealed the similar EKG picture of nonspecific intraventricular conduction delay with left axis deviation. ASSESSMENT: 1. Exacerbation of bronchial asthma. 2. Uncontrolled diabetes mellitus. 3. History of coronary arteries with left anterior descending and circumflex artery stenting. 4. Diabetic retinopathy. 5. Hypertension. RECOMMENDATIONS: Continue hydralazine 25 mg daily, aspirin 81 mg once a day. Continue IV Rocephin and IV Zithromax. Continue Lasix 20 mg intravenously daily, Klor-Con 10 mEq once a day, Glucophage 500 mg t.i.d., Lovenox 30 mg once a day, and Zebeta 5 mg once a day. Obtain an echocardiogram. Scott Villegas MD
[2017-12-12] MEDS: guaiFENesin DM 200 mg-20 mg/10 ml UD PO PRN ×2 (02:34→10:39)
[2017-12-12] MEDS ORDERED: Albuterol-Ipratrop 3 mg / 0.5 (3 ml) UD INH STA (02:49)
[2017-12-12] MEDS: (Novolog) Insulin Aspart, Recombinant 100 u/ml 10 ml vial SC SCH ×4 (07:40→22:06)
[2017-12-12] MEDS: Albuterol-Ipratrop 3 mg / 0.5 (3 ml) UD INH SCH ×3 (07:51→20:06)
[2017-12-12 08:57] LABS: BASO # 0.1 K/uL (0.0-0.2); BASO % 0.3 % (0.0-2.0); EOS # 0.4 K/uL (0.0-0.7); EOS % 1.1 % (0.0-4.0); LYMPH # 5.5 K/uL (1.0-4.3); LYMPH % 15.4 % (20.0-40.0); MEAN CELL VOLUME 79.1 fL (81.0-99.0); MEAN CORPUSCULAR HEMOGLOBIN 25.2 pg (27.0-31.0); MEAN CORPUSCULAR HGB CONC 31.8 g/dL (33.0-37.0); MEAN PLATELET VOLUME 8.4 fL (7.2-11.7); MONO # 2.7 K/uL (0.0-0.8); MONO % 7.5 % (0.0-10.0); NEUT # 27.1 K/uL (1.8-7.0); NEUT % 75.7 % (50.0-75.0); RBC 5.04 Mil/uL (3.80-5.20); RED CELL DISTRIBUTION WIDTH 15.2 % (11.5-14.5)
[2017-12-12 09:00] LABS: HEMOGLOBIN 12.7 g/dL (11.0-16.0); WHITE BLOOD COUNT 35.7 K/uL (4.8-10.8)
[2017-12-12 09:01] LABS: PLATELET COUNT 575 K/uL (130-400)
--- NOTE | 2017-12-12 09:14 | CP.PCM.PN ---
<Carlos Jacobo - Last Filed: 12/12/17 18:33> Subjective - Date & Time of Evaluation Date of Evaluation: 12/12/17 Time of Evaluation: 07:55 - Subjective Subjective: Medicine note for Dr. Steele Patient seen and examined at bedside and in no acute distress. She reports feeling much better. Her wheezing has improved. She reports continued improvement in cough, now productive of white sputum with less volume. Reports + BM. Denies headache, chest pain, SOB, abdominal pain, n/v, d/c, or any additional acute complaints. Objective - Vital Signs/Intake and Output Vital Signs (last 24 hours): Temp Pulse Resp BP Pulse Ox 97.4 F L 89 20 147/83 99 12/12/17 08:36 12/12/17 08:36 12/12/17 08:36 12/12/17 08:36 12/12/17 08:36 - Medications Medications: Current Medications Albuterol/Ipratropium (Duoneb 3 Mg/0.5 Mg (3 Ml) Ud) 3 ml INH RQ6 [facility] Last Admin: 12/12/17 07:51 Dose: 3 ml Aspirin (Aspirin Chewable) 81 mg PO DAILY [facility] Last Admin: 12/11/17 09:31 Dose: 81 mg Bisoprolol Fumarate (Zebeta) 5 mg PO BID [facility] Last Admin: 12/11/17 17:09 Dose: 5 mg Enoxaparin Sodium (Lovenox) 30 mg SC DAILY [facility] Last Admin: 12/11/17 09:32 Dose: 30 mg Furosemide (Lasix) 20 mg IVP DAILY [facility] Last Admin: 12/11/17 09:31 Dose: 20 mg Guaifenesin/Dextromethorphan (Robitussin Dm) 10 ml PO Q4H PRN PRN Reason: Cough and congestion Last Admin: 12/12/17 02:34 Dose: 10 ml Hydralazine HCl (Apresoline) 25 mg PO DAILY [facility] Last Admin: 12/11/17 09:31 Dose: 25 mg Azithromycin 500 mg/ Sodium (Chloride) 250 mls @ 250 mls/hr IVPB DAILY@1800 [facility] PRN Reason: Protocol Last Admin: 12/11/17 19:41 Dose: 250 mls/hr Ceftriaxone Sodium 1 gm/ (Sodium Chloride) 100 mls @ 100 mls/hr IVPB DAILY@ 1600 [facility] PRN Reason: Protocol Last Admin: 12/11/17 18:23 Dose: 100 mls/hr Insulin Aspart (Novolog) 0 unit SC ACHS [facility] PRN Reason: Protocol Last Admin: 12/11/17 21:27 Dose: Not Given Insulin Human Isoph/Insulin Regular (Novolin 70/30 (70/30 Units/Ml) 10 Ml) 40 units SC BID [facility] Last Admin: 12/11/17 17:38 Dose: 40 units Losartan Potassium (Cozaar) 100 mg PO DAILY [facility] Last Admin: 12/11/17 09:31 Dose: 100 mg Metformin HCl (Glucophage) 500 mg PO TIDCC [facility] Last Admin: 12/11/17 17:09 Dose: 500 mg Methylprednisolone (Solu-Medrol) 20 mg IVP DAILY [facility] Potassium Chloride (Klor-Con 10) 10 meq PO DAILY [facility] Last Admin: 12/11/17 09:31 Dose: 10 meq Rosuvastatin Calcium (Crestor) 20 mg PO HS [facility] Last Admin: 12/11/17 21:28 Dose: 20 mg Sitagliptin Phosphate (Januvia) 100 mg PO DAILY [facility] Last Admin: 12/11/17 09:31 Dose: 100 mg - Labs Labs: 12/12/17 08:37 12/10/17 06:29 - Additional Findings Additional findings: - Constitutional Appears: Well, Non-toxic, No Acute Distress - Head Exam Head Exam: ATRAUMATIC, NORMAL INSPECTION, NORMOCEPHALIC - Eye Exam Eye Exam: EOMI, Normal appearance - ENT Exam ENT Exam: Mucous Membranes Moist - Respiratory Exam Respiratory Exam: Wheezes (mild, upper lung landers), NORMAL BREATHING PATTERN - Cardiovascular Exam Cardiovascular Exam: REGULAR RHYTHM, RRR, +S1, +S2 - GI/Abdominal Exam GI & Abdominal Exam: Soft, Normal Bowel Sounds. absent: Tenderness - Extremities Exam Extremities Exam: Full ROM. absent: Normal Inspection - Back Exam Back Exam: NORMAL INSPECTION - Neurological Exam Neurological Exam: Alert, Awake, Oriented x3 - Psychiatric Exam Psychiatric exam: Normal Affect, Normal Mood - Skin Skin Exam: Intact, Normal Color, Warm Assessment and Plan - Assessment and Plan (Free Text) Assessment: Pneumonia 12/12: CXR - negative, lungs are well inflated and clear. see full report. cxray 12/06: reticular interstitial infiltrate more prominent in lower portions of the lungs. No focal consolidation. continue antibiotics COPD exacerbation 12/12: dec to Solumedrol 10mg po daily d/c on prednisone 20mg PO qd Solumedrol decreased to 20mg po daily for 12/12 (from BID) Duonebs HTN 12/12: f/u Echo official read. Dr. Ash consulted, cardiology Hydralazine 25mg po daily Cozaar 100mg po daily HLD Cozaar 100mg po daily DMII 12/12: dec ISS to medium dose Metformin 500mg po tid ISS Novolin 40 u sc bid Januvia 100mg po daily accuchecks CAD ASA 81mg po daily Cozaar 100mg po daily Cozaar 100mg po daily f/u cardiology consult, Dr. Villegas, help appreciated Prophylaxis Lovenox <Lisa Steele V - Last Filed: 12/12/17 18:56> Objective - Vital Signs/Intake and Output Vital Signs (last 24 hours): Temp Pulse Resp BP Pulse Ox 98.1 F 88 18 144/82 97 12/12/17 15:37 12/12/17 15:37 12/12/17 15:37 12/12/17 15:37 12/12/17 15:37 - Medications Medications: Current Medications Albuterol/Ipratropium (Duoneb 3 Mg/0.5 Mg (3 Ml) Ud) 3 ml INH RQ6 [facility] Last Admin: 12/12/17 14:14 Dose: 3 ml Aspirin (Aspirin Chewable) 81 mg PO DAILY [facility] Last Admin: 12/12/17 10:30 Dose: 81 mg Bisoprolol Fumarate (Zebeta) 5 mg PO BID [facility] Last Admin: 12/12/17 17:23 Dose: 5 mg Enoxaparin Sodium (Lovenox) 30 mg SC DAILY [facility] Last Admin: 12/12/17 10:28 Dose: 30 mg Furosemide (Lasix) 20 mg IVP DAILY [facility] Last Admin: 12/12/17 10:30 Dose: 20 mg Guaifenesin/Dextromethorphan (Robitussin Dm) 10 ml PO Q4H PRN PRN Reason: Cough and congestion Last Admin: 12/12/17 10:39 Dose: 10 ml Hydralazine HCl (Apresoline) 25 mg PO DAILY [facility] Last Admin: 12/12/17 10:28 Dose: 25 mg Azithromycin 500 mg/ Sodium (Chloride) 250 mls @ 250 mls/hr IVPB DAILY@1800 [facility] PRN Reason: Protocol Last Admin: 12/12/17 17:23 Dose: 250 mls/hr Ceftriaxone Sodium 1 gm/ (Sodium Chloride) 100 mls @ 100 mls/hr IVPB DAILY@ 1600 [facility] PRN Reason: Protocol Last Admin: 12/12/17 16:22 Dose: 100 mls/hr Insulin Aspart (Novolog) 0 unit SC ACHS [facility] PRN Reason: Protocol Insulin Human Isoph/Insulin Regular (Novolin 70/30 (70/30 Units/Ml) 10 Ml) 40 units SC BID [facility] Last Admin: 12/12/17 17:24 Dose: 40 units Losartan Potassium (Cozaar) 100 mg PO DAILY [facility] Last Admin: 12/12/17 10:30 Dose: 100 mg Metformin HCl (Glucophage) 500 mg PO TIDCC [facility] Last Admin: 12/12/17 17:23 Dose: 500 mg Methylprednisolone (Solu-Medrol) 10 mg IVP DAILY [facility] Potassium Chloride (Klor-Con 10) 10 meq PO DAILY [facility] Last Admin: 12/12/17 10:31 Dose: 10 meq Rosuvastatin Calcium (Crestor) 20 mg PO HS [facility] Last Admin: 12/11/17 21:28 Dose: 20 mg Sitagliptin Phosphate (Januvia) 100 mg PO DAILY [facility] Last Admin: 12/12/17 10:28 Dose: 100 mg - Labs Labs: 12/12/17 08:37 12/12/17 11:56 Attending/Attestation - Attestation I have personally seen and examined this patient.: Yes I have fully participated in the care of the patient.: Yes I have reviewed all pertinent clinical information, including history, physical exam and plan: Yes Notes (Text): Patient seen, examined, and case discussed with medical economics consultant. Patient reports she is feeling better. On clinical exam patient does still have some wheezing. Patient was seen and evaluated cardiology recommended for echocardiogram. I've also put a repeat chest x-ray to see if there is some improvement from her prior chest x-ray from 12/05/2017. Just as amendment from resident note Cymetra was decreased from twice daily to once a day. Will DC on by mouth steroids No leukocytosis and thrombo-cytosis is likely due to patient being on steroids. Patient for possible discharge tomorrow pending report of echo and clinical clinical improvement. Assessment/Plan 1) Pneumonia * cxray 12/06: reticular interstitial infiltrate more prominent in lower portions of the lungs. No focal consolidation. * Azithromycin 500mg IV q daily (active since 12/07/17) * Rocephin 1 gram IV q daily (active since 12/10/17) * Duonebs RQ6H * Robotussin DM 10ml PO Q4H PRN cough and cougestion 2) COPD exacerbation * Solumedrol decreased to 20mg po daily for 12/12 (from BID) * Duonebs RQ6H * Robotussin DM 10ml PO Q4H PRN cough and cougestion 3) Hypertension * Hydralazine 25mg po daily * Cozaar 100mg po daily * lasix 20mg IV qdaily * Klor-con 10meq PO daily 4) Lipid Disorder * Crestor 20mg POqHS 5) DMII * Metformin 500mg po tid * ISS * Novolin 70/30 40 u sc bid-->lower 30 units subqBID given lowering of steroid * Januvia 100mg po daily * accuchecks QAC and HS * Novolog sliding scale 6) History of Coronary Artery Disease * f/u cardiology consult, Dr. Villegas, help appreciated * Echocardiogram pending * ASA 81mg po daily * Bisoprolol 5mg PO BID * Cozaar 100mg po daily * Crestor 20mg POqHS * lasix 20mg IV qdaily * Klor-con 10meq PO daily 7) Prophylaxis * Lovenox 30mg subqdaily * Florastor 250mg PO BID
[2017-12-12] MEDS ORDERED: MethylPREDNISolone 40 mg Vial IVP SCH ×2 (10:00→18:35)
[2017-12-12] MEDS: Enoxaparin 30 mg Syringe SC SCH (10:28)
[2017-12-12] MEDS: (Novolin 70/30) NPH/Regular 70/30 Units/ml 10 ml vial SC SCH ×3 (10:31→19:07)
[2017-12-12] MEDS: Potassium Chloride 10 mEq ER Tab PO SCH (10:31)
[2017-12-12 10:56] LABS: BANDS 1 % (0-2); LYMPHOCYTE 16 % (20-40); MONOCYTE 5 % (0-10); NEUTROPHIL 78 % (50-75); PLATELET ESTIMATE INCREASED (NORMAL); TOTAL CELLS COUNTED 100
[2017-12-12 10:57] LABS: ANISOCYTOSIS SLIGHT; HYPOCHROMIC SLIGHT; MICROCYTOSIS SLIGHT; OVALOCYTES SLIGHT; POIKILOCYTOSIS SLIGHT; POLYCHROMIC SLIGHT
[2017-12-12 10:58] LABS: LARGE PLATELETS PRESENT
[2017-12-12 12:35] LABS: ALB/GLOB RATIO 1.2 (1.0-2.1); ALBUMIN 3.6 g/dL (3.5-5.0); ALT/SGPT 33 U/L (9-52); AST/SGOT 24 U/L (14-36); BLOOD UREA NITROGEN 33 mg/dL (7-17); GFR AFRICAN-AMERICAN > 60; GFR NON-AFRICAN AMERICAN 51
[2017-12-12] MEDS: Azithromycin 500 MG in Sodium Chloride 0.9% 250 ML IVPB SCH (17:23)
--- NOTE | 2017-12-12 17:25 | RAD ---
HISTORY: COMPARISON: 12/06/2017. TECHNIQUE: Chest PA and lateral FINDINGS: LINES AND TUBES: None. LUNG AND PLEURA: The lungs are well inflated and clear. No pleural effusion or pneumothorax. HEART AND MEDIASTINUM: The heart is not enlarged. The hilar and mediastinal contours are within normal limits. SKELETAL STRUCTURES: The bony structures are within normal limits for the patient's age. VISUALIZED UPPER ABDOMEN: Normal. OTHER FINDINGS: None. IMPRESSION: No active pulmonary disease.
--- NOTE | 2017-12-12 21:10 | PN ---
DATE: 12/12/2017 SUBJECTIVE: The patient is still mildly short of breath. PHYSICAL EXAMINATION: VITAL SIGNS: Blood pressure 147/83, heart rate 89, temperature 97.4, respirations 20. HEENT: Normocephalic. CHEST: Bilateral rhonchi. HEART: S1, S2 regular. EXTREMITIES: No edema. LABORATORY DATA: Hemoglobin and hematocrit 12.7 and 39.9, white count , platelet count 275,000. SMA-7 today sodium 138, potassium 3.8, chloride 97, CO2 31, glucose 232, BUN 33, creatinine 1.1. I did review the echocardiography study, which revealed mildly depressed ejection fraction with septal hypokinesis. Repeat chest x-ray today revealed prominent bronchovascular markings, no indefinite infiltrate or effusion, slightly better than the admitting chest x-ray. ASSESSMENT: 1. Coronary artery disease status post percutaneous coronary intervention to the left anterior descending (coronary artery) and circumflex artery in the past. 2. Exacerbation of bronchial asthma. 3. Systolic heart failure. 4. Uncontrolled diabetes mellitus. RECOMMENDATIONS: Continue hydralazine 25 mg daily, aspirin 81 mg once a day, IV Zithromax and IV Rocephin. Continue Cozaar at 100 mg once a day, Klor-Con 10 mEq once a day, Lasix 20 mg intravenously daily, subcutaneous Lovenox at 30 mg once day, Solu-Medrol 20 mg intravenously daily, and Zebeta at 5 mg twice a day. Scott Villegas MD MTDD
[2017-12-13 01:21] VITALS: RESP 20
[2017-12-13] MEDS: Albuterol-Ipratrop 3 mg / 0.5 (3 ml) UD INH SCH ×2 (01:42→08:29)
[2017-12-13] MEDS ORDERED: Simethicone 80 mg Chewtab PO ONE (04:34)
[2017-12-13] MEDS: (Novolog) Insulin Aspart, Recombinant 100 u/ml 10 ml vial SC SCH ×2 (08:25→12:56)
[2017-12-13] MEDS: (Novolin 70/30) NPH/Regular 70/30 Units/ml 10 ml vial SC SCH (08:30)
[2017-12-13 09:06] VITALS: PULSE 88; TEMP 98.5; O2SAT 100
[2017-12-13] MEDS ORDERED: Saccharomyces Boulardi 250 mg Cap PO SCH (10:00)
[2017-12-13] MEDS: Enoxaparin 30 mg Syringe SC SCH (10:45)
[2017-12-13] MEDS: Potassium Chloride 10 mEq ER Tab PO SCH (10:46)
[2017-12-13 11:42] VITALS: BP 158/71
[2017-12-13 12:03] LABS: BASO # 0.1 K/uL (0.0-0.2); BASO % 0.3 % (0.0-2.0); EOS # 0.2 K/uL (0.0-0.7); EOS % 0.8 % (0.0-4.0); HEMOGLOBIN 11.5 g/dL (11.0-16.0); LYMPH # 2.8 K/uL (1.0-4.3); MEAN CELL VOLUME 78.7 fL (81.0-99.0); MEAN CORPUSCULAR HEMOGLOBIN 25.5 pg (27.0-31.0); MEAN CORPUSCULAR HGB CONC 32.4 g/dL (33.0-37.0); MEAN PLATELET VOLUME 8.4 fL (7.2-11.7); MONO % 7.1 % (0.0-10.0); NEUT # 23.2 K/uL (1.8-7.0); NEUT % 81.8 % (50.0-75.0); RBC 4.52 Mil/uL (3.80-5.20); RED CELL DISTRIBUTION WIDTH 15.3 % (11.5-14.5); WHITE BLOOD COUNT 28.4 K/uL (4.8-10.8)
[2017-12-13 12:19] LABS: ALB/GLOB RATIO 1.1 (1.0-2.1); ALBUMIN 3.5 g/dL (3.5-5.0); ALT/SGPT 34 U/L (9-52); AST/SGOT 19 U/L (14-36); BLOOD UREA NITROGEN 27 mg/dL (7-17); GFR AFRICAN-AMERICAN > 60; GFR NON-AFRICAN AMERICAN > 60
--- NOTE | 2017-12-13 12:36 | CARD ---
APPROVED REPORT EXAM: Two-dimensional and M-mode echocardiogram with Doppler and color Doppler. Other Information Quality : GoodRhythm : INDICATION Dyspnea Cardiac Disease: CAD RISK FACTORS Hypertension Hyperlipidemia 2D DIMENSIONS IVSd1.3 (0.7-1.1cm)LVDd5.1 (3.9-5.9cm) LVOT Diameter1.6 (1.8-2.4cm)PWd1.1 (0.7-1.1cm) LVDs4.0 (2.5-4.0cm)FS (%) 21.8 % LVEF (%)43.9 (>50%) M-Mode DIMENSIONS Left Atrium (MM)4.90 (2.5-4.0cm)Aortic Root2.62 (2.2-3.7cm) Aortic Cusp Exc.1.33 (1.5-2.0cm) Mitral Valve MV E [id number]/sMV A Jhhlebth47.9cm/sMV [id number] E/A ratio1.3MVA (PHT)4.44cm2 TDI E/Lateral E'0.0E/Medial E'0.0 Tricuspid Valve TR Peak [id number] Peak [id number] LEFT VENTRICLE The left ventricle is normal size. There is normal left ventricular wall thickness. Left ventricle systolic function is mildly impaired. The Ejection Fraction is 40-45%. There is global hypokinesis of the left ventricle. Transmitral Doppler flow pattern is Grade II-pseudonormal filling dynamics. LV filling prressure is elevated No left ventricle thrombus noted on this study. There is no ventricular septal defect visualized. There is no left ventricular aneurysm. There is no mass noted in the left ventricle. RIGHT VENTRICLE The right ventricle is normal size. There is normal right ventricular wall thickness. The right ventricular systolic function is normal. ATRIA The left atrium is moderately dilated. The right atrium size is normal. The interatrial septum is intact with no evidence for an atrial septal defect. AORTIC VALVE The aortic valve is normal in structure and function. No aortic regurgitation is present. There is no aortic valvular stenosis. There is no aortic valvular vegetation. MITRAL VALVE The mitral valve is normal in structure and function. There is no evidence of mitral valve prolapse. There is no mitral valve stenosis. There is no mitral valve regurgitation noted. TRICUSPID VALVE The tricuspid valve is normal in structure and function. There is mild tricuspid regurgitation. There is no tricuspid valve prolapse or vegetation. There is no tricuspid valve stenosis. PULMONIC VALVE The pulmonary valve is normal in structure and function. There is no pulmonic valvular regurgitation. There is no pulmonic valvular stenosis. GREAT VESSELS The aortic root is normal in size. The ascending aorta is normal in size. The pulmonary artery is normal. The IVC is normal in size and collapses >50% with inspiration. PERICARDIAL EFFUSION The pericardium appears normal. There is no pleural effusion. <Conclusion> Left ventricle systolic function is mildly impaired. The Ejection Fraction is 40-45%. There is global hypokinesis of the left ventricle. Transmitral Doppler flow pattern is Grade II-pseudonormal filling dynamics. LV filling prressure is elevated The left atrium is moderately dilated.
--- NOTE | 2017-12-13 17:22 | CP.PCM.DIS ---
<Carlos Jacobo - Last Filed: 12/13/17 17:17> Provider - Provider Date of Admission: 12/10/17 15:54 Attending physician: Georges Reyna MD Primary care physician: Dr. Reyna Consults: Cardio- Dr. Alexander Time Spent in preparation of Discharge (in minutes): 28 Hospital Course - Lab Results Lab Results: Most Recent Lab Values WBC 28.4 K/uL (4.8-10.8) H 12/13/17 11:47 RBC 4.52 Mil/uL (3.80-5.20) 12/13/17 11:47 Hgb 11.5 g/dL (11.0-16.0) 12/13/17 11:47 Hct 35.5 % (34.0-47.0) 12/13/17 11:47 MCV 78.7 fL (81.0-99.0) L 12/13/17 11:47 MCH 25.5 pg (27.0-31.0) L 12/13/17 11:47 MCHC 32.4 g/dL (33.0-37.0) L 12/13/17 11:47 RDW 15.3 % (11.5-14.5) H 12/13/17 11:47 Plt Count 447 K/uL (130-400) H D 12/13/17 11:47 MPV 8.4 fL (7.2-11.7) 12/13/17 11:47 Neut % (Auto) 81.8 % (50.0-75.0) H 12/13/17 11:47 Lymph % (Auto) 10.0 % (20.0-40.0) L 12/13/17 11:47 Taylor % (Auto) 7.1 % (0.0-10.0) 12/13/17 11:47 Eos % (Auto) 0.8 % (0.0-4.0) 12/13/17 11:47 Baso % (Auto) 0.3 % (0.0-2.0) 12/13/17 11:47 Neut # (Auto) 23.2 K/uL (1.8-7.0) H 12/13/17 11:47 Lymph # (Auto) 2.8 K/uL (1.0-4.3) 12/13/17 11:47 Taylor # (Auto) 2.0 K/uL (0.0-0.8) H 12/13/17 11:47 Eos # (Auto) 0.2 K/uL (0.0-0.7) 12/13/17 11:47 Baso # (Auto) 0.1 K/uL (0.0-0.2) 12/13/17 11:47 Neutrophils % (Manual) 78 % (50-75) H 12/12/17 08:37 Band Neutrophils % 1 % (0-2) 12/12/17 08:37 Lymphocytes % (Manual) 16 % (20-40) L 12/12/17 08:37 Reactive Lymphs % 1 % (0-0) H 12/08/17 07:52 Monocytes % (Manual) 5 % (0-10) 12/12/17 08:37 Eosinophils % (Manual) 1 % (0-4) 12/08/17 07:52 Platelet Estimate Increased (NORMAL) H 12/12/17 08:37 Large Platelets Present 12/12/17 08:37 Polychromasia Slight 12/12/17 08:37 Hypochromasia (manual) Slight 12/12/17 08:37 Poikilocytosis (manual Slight 12/12/17 08:37 Anisocytosis (manual) Slight 12/12/17 08:37 Microcytosis (manual) Slight 12/12/17 08:37 Macrocytosis (manual) Slight 12/12/17 08:37 Ovalocytes Slight 12/12/17 08:37 Sodium 138 mmol/L (132-148) 12/13/17 11:47 Potassium 4.1 mmol/L (3.6-5.2) 12/13/17 11:47 Chloride 98 mmol/L (98-107) 12/13/17 11:47 Carbon Dioxide 29 mmol/L (22-30) 12/13/17 11:47 Anion Gap 15 (10-20) 12/13/17 11:47 BUN 27 mg/dL (7-17) H 12/13/17 11:47 Creatinine 0.9 mg/dL (0.7-1.2) 12/13/17 11:47 Est GFR ( Amer) > 60 12/13/17 11:47 Est GFR (Non-Af Amer) > 60 12/13/17 11:47 POC Glucose (mg/dL) 233 mg/dL (65-110) H 12/13/17 12:20 Random Glucose 267 mg/dL (65-105) H 12/13/17 11:47 Hemoglobin A1c 9.0 % (4.2-6.5) H 12/07/17 06:32 Calcium 9.0 mg/dl (8.6-10.4) 12/13/17 11:47 Phosphorus 3.8 mg/dL (2.5-4.5) 12/13/17 11:47 Magnesium 1.8 mg/dL (1.6-2.3) 12/13/17 11:47 Total Bilirubin 0.4 mg/dL (0.2-1.3) 12/13/17 11:47 AST 19 U/L (14-36) 12/13/17 11:47 ALT 34 U/L (9-52) 12/13/17 11:47 Alkaline Phosphatase 110 U/L (38-126) 12/13/17 11:47 Troponin I < 0.0120 ng/mL (0.00-0.120) 12/06/17 15:52 NT-Pro-B Natriuret Pep 788 pg/mL (0-900) 12/06/17 15:52 Total Protein 6.6 g/dL (6.3-8.3) 12/13/17 11:47 Albumin 3.5 g/dL (3.5-5.0) 12/13/17 11:47 Globulin 3.1 gm/dL (2.2-3.9) 12/13/17 11:47 Albumin/Globulin Ratio 1.1 (1.0-2.1) 12/13/17 11:47 - Hospital Course Hospital Course: Upon hospital admission: 57 year old female with PMHx of asthma and HTN brought to ED by ambulance for evaluation of productive cough with white sputum, sore throat, shortness of breath, and wheezing since yesterday. She states her symptoms feel similar to prior asthma exacerbations, and states she has been using her inhaler without relief. Patient denies chest pain, palpitations, fever, leg edema. During hospital course, the patient was evaluated and treated for the following : 1. Pneumonia treated with IV abx (Ceftriaxone 1gm IVPB qd and Azithromycin 500mg IVPB qD). Initial CXR on 12/06 with reticular interstitial infiltrate more prominent in lower portions of the lungs. No focal consolidation. Follow up Xray on 12/12 was negative. 2. COPD exacerbation treated with Duonebs and Solumedrol 20mg IVP qD, decreased to 10mg qd and finally d/c'd on Prednisone taper. 3. HTN follwed by Dr. Alexander. Treated with Hydralazine 25mg po daily and Cozaar 100mg po daily. Repeat Echo showed equivalant cardiac status to prior echo 2 years ago. The patient did well during this admission, responded well to treatment, and was deemed stable for discharge. Upon hospital discharge, the patient was provided with the following instructions: Patient is stable for discharge per Dr. Steele. You were treated for Pneumonia and a COPD exacerbation while hospitalized. Patient should resume all medications as outlined in this document. Additionally, patient should take the new medications listed below (scripts provided). 1. Please make an appointment and follow up with your Primary Doctor Dr. Reyna within one week of discharge. 2. Your echo was read and shows stable cardiac status since your last echo. Patient should return to ED immediately if symptoms return or worsen. Instructions discussed with patient who understood and agreed. Newly prescribed medications: Prednisone 20mg PO qD #4 (take for first 4 days) Prednisone 10mg PO qD #4 (take on days 5,6,7,8) Pepcid 20mg PO qd #14 Hydralazine 25mg PO qD #30 (your BP medication was increased from 10mg) This is a summary of the patient's hospital admission, see chart for comprehensive detail. - Date & Time of H&P Date of H&P: 12/06/17 Time of H&P: 13:14 Discharge Exam - Additional Findings Additional findings: - Constitutional Appears: Well, Non-toxic, No Acute Distress - Head Exam Head Exam: ATRAUMATIC, NORMAL INSPECTION, NORMOCEPHALIC - Eye Exam Eye Exam: EOMI, Normal appearance - ENT Exam ENT Exam: Mucous Membranes Moist - Respiratory Exam Respiratory Exam: NORMAL BREATHING PATTERN, absent: Wheezes, Rales - Cardiovascular Exam Cardiovascular Exam: REGULAR RHYTHM, RRR, +S1, +S2 - GI/Abdominal Exam GI & Abdominal Exam: Soft, Normal Bowel Sounds. absent: Tenderness - Extremities Exam Extremities Exam: Full ROM. absent: Normal Inspection - Back Exam Back Exam: NORMAL INSPECTION - Neurological Exam Neurological Exam: Alert, Awake, Oriented x3 - Psychiatric Exam Psychiatric exam: Normal Affect, Normal Mood - Skin Skin Exam: Intact, Normal Color, Warm Discharge Plan - Discharge Medications Prescriptions: Famotidine [Pepcid] 20 mg PO DAILY #14 tab RX: hydrALAZINE [Apresoline] 25 mg PO DAILY #30 tab predniSONE [Prednisone] 10 mg PO DAILY #4 tab predniSONE [Prednisone] 20 mg PO DAILY #4 tab - Follow Up Plan Condition: STABLE Disposition: HOME/ ROUTINE Instructions: Pneumonia in Adults, Type 2 Diabetes, Asthma, Adult (DC), COPD Including Emphysema (DC), Shortness of Breath (Dyspnea) (DC) Additional Instructions: Patient is stable for discharge per Dr. Steele. You were treated for Pneumonia and a COPD exacerbation while hospitalized. Patient should resume all medications as outlined in this document. Additionally, patient should take the new medications listed below (scripts provided). 1. Please make an appointment and follow up with your Primary Doctor Dr. Reyna within one week of discharge. 2. Your echo was read and shows stable cardiac status since your last echo. Patient should return to ED immediately if symptoms return or worsen. Instructions discussed with patient who understood and agreed. Newly prescribed medications: Prednisone 20mg PO qD #4 (take for first 4 days) Prednisone 10mg PO qD #4 (take on days 5,6,7,8) Pepcid 20mg PO qd #14 Hydralazine 25mg PO qD #30 (your BP medication was increased from 10mg) <Lisa Steele V - Last Filed: 12/14/17 00:20> Provider - Provider Date of Admission: 12/10/17 15:54 Attending physician: Georges Reyna MD Time Spent in preparation of Discharge (in minutes): 31 Hospital Course - Lab Results Lab Results: Most Recent Lab Values WBC 28.4 K/uL (4.8-10.8) H 12/13/17 11:47 RBC 4.52 Mil/uL (3.80-5.20) 12/13/17 11:47 Hgb 11.5 g/dL (11.0-16.0) 12/13/17 11:47 Hct 35.5 % (34.0-47.0) 12/13/17 11:47 MCV 78.7 fL (81.0-99.0) L 12/13/17 11:47 MCH 25.5 pg (27.0-31.0) L 12/13/17 11:47 MCHC 32.4 g/dL (33.0-37.0) L 12/13/17 11:47 RDW 15.3 % (11.5-14.5) H 12/13/17 11:47 Plt Count 447 K/uL (130-400) H D 12/13/17 11:47 MPV 8.4 fL (7.2-11.7) 12/13/17 11:47 Neut % (Auto) 81.8 % (50.0-75.0) H 12/13/17 11:47 Lymph % (Auto) 10.0 % (20.0-40.0) L 12/13/17 11:47 Taylor % (Auto) 7.1 % (0.0-10.0) 12/13/17 11:47 Eos % (Auto) 0.8 % (0.0-4.0) 12/13/17 11:47 Baso % (Auto) 0.3 % (0.0-2.0) 12/13/17 11:47 Neut # (Auto) 23.2 K/uL (1.8-7.0) H 12/13/17 11:47 Lymph # (Auto) 2.8 K/uL (1.0-4.3) 12/13/17 11:47 Taylor # (Auto) 2.0 K/uL (0.0-0.8) H 12/13/17 11:47 Eos # (Auto) 0.2 K/uL (0.0-0.7) 12/13/17 11:47 Baso # (Auto) 0.1 K/uL (0.0-0.2) 12/13/17 11:47 Neutrophils % (Manual) 78 % (50-75) H 12/12/17 08:37 Band Neutrophils % 1 % (0-2) 12/12/17 08:37 Lymphocytes % (Manual) 16 % (20-40) L 12/12/17 08:37 Reactive Lymphs % 1 % (0-0) H 12/08/17 07:52 Monocytes % (Manual) 5 % (0-10) 12/12/17 08:37 Eosinophils % (Manual) 1 % (0-4) 12/08/17 07:52 Platelet Estimate Increased (NORMAL) H 12/12/17 08:37 Large Platelets Present 12/12/17 08:37 Polychromasia Slight 12/12/17 08:37 Hypochromasia (manual) Slight 12/12/17 08:37 Poikilocytosis (manual Slight 12/12/17 08:37 Anisocytosis (manual) Slight 12/12/17 08:37 Microcytosis (manual) Slight 12/12/17 08:37 Macrocytosis (manual) Slight 12/12/17 08:37 Ovalocytes Slight 12/12/17 08:37 Sodium 138 mmol/L (132-148) 12/13/17 11:47 Potassium 4.1 mmol/L (3.6-5.2) 12/13/17 11:47 Chloride 98 mmol/L (98-107) 12/13/17 11:47 Carbon Dioxide 29 mmol/L (22-30) 12/13/17 11:47 Anion Gap 15 (10-20) 12/13/17 11:47 BUN 27 mg/dL (7-17) H 12/13/17 11:47 Creatinine 0.9 mg/dL (0.7-1.2) 12/13/17 11:47 Est GFR ( Amer) > 60 12/13/17 11:47 Est GFR (Non-Af Amer) > 60 12/13/17 11:47 POC Glucose (mg/dL) 233 mg/dL (65-110) H 12/13/17 12:20 Random Glucose 267 mg/dL (65-105) H 12/13/17 11:47 Hemoglobin A1c 9.0 % (4.2-6.5) H 12/07/17 06:32 Calcium 9.0 mg/dl (8.6-10.4) 12/13/17 11:47 Phosphorus 3.8 mg/dL (2.5-4.5) 12/13/17 11:47 Magnesium 1.8 mg/dL (1.6-2.3) 12/13/17 11:47 Total Bilirubin 0.4 mg/dL (0.2-1.3) 12/13/17 11:47 AST 19 U/L (14-36) 12/13/17 11:47 ALT 34 U/L (9-52) 12/13/17 11:47 Alkaline Phosphatase 110 U/L (38-126) 12/13/17 11:47 Troponin I < 0.0120 ng/mL (0.00-0.120) 12/06/17 15:52 NT-Pro-B Natriuret Pep 788 pg/mL (0-900) 12/06/17 15:52 Total Protein 6.6 g/dL (6.3-8.3) 12/13/17 11:47 Albumin 3.5 g/dL (3.5-5.0) 12/13/17 11:47 Globulin 3.1 gm/dL (2.2-3.9) 12/13/17 11:47 Albumin/Globulin Ratio 1.1 (1.0-2.1) 12/13/17 11:47 Attending/Attestation - Attestation I have personally seen and examined this patient.: Yes I have fully participated in the care of the patient.: Yes I have reviewed all pertinent clinical information, including history, physical exam and plan: Yes Notes (Text): This is late computer entry for 12/13/17. Patient seen, examined, and case discussed with ophthalmic medical technologist. Patient reports she is feeling better. Lung exam has improved. Resident has spoken with cardiology, patient is stable for discharge per their perspective. Patient discharge on PO Prednisone taper, Pepcid OTC for GI ppx. Patient has completed antibiotics while in the hospital. Patient to resume home medications on discharge. Recommended to follow-up Dr. Reyna in the office post hospitalization in one week. I have informed Dr. Reyna who is aware that patient is being discharged. Patient should return to ED immediately if symptoms return or worsen. Instructions discussed with patient who understood and agreed. Newly prescribed medications: Prednisone 20mg PO qD #4 (take for first 4 days) Prednisone 10mg PO qD #4 (take on days 5,6,7,8) Pepcid 20mg PO qd #14 Hydralazine 25mg PO qD #30 (your BP medication was increased from 10mg) This is a summary of patient's hospitalization. Please see EMR for full details of record. Discharge Diagnoses: 1) Pneumonia * cxray 12/06: reticular interstitial infiltrate more prominent in lower portions of the lungs. No focal consolidation. * Azithromycin 500mg IV q daily (active since 12/07-) * Rocephin 1 gram IV q daily (active since 12/10-) * Duonebs RQ6H * Robotussin DM 10ml PO Q4H PRN cough and cougestion 2) COPD exacerbation * Solumedrol decreased to 20mg po daily for 12/12 (from BID) * Discharge on following: * Prednisone 20mg PO qD #4 (take for first 4 days) * Prednisone 10mg PO qD #4 (take on days 5,6,7,8) * Duonebs RQ6H * Robotussin DM 10ml PO Q4H PRN cough and cougestion 3) Hypertension * Hydralazine 25mg po daily * Cozaar 100mg po daily * lasix 20mg IV qdaily * Klor-con 10meq PO daily 4) Lipid Disorder * Crestor 20mg POqHS 5) DMII * Metformin 500mg po tid * ISS * Novolin 70/30 40 u sc bid-->lower 30 units subqBID given lowering of steroid * Januvia 100mg po daily * accuchecks QAC and HS * Novolog sliding scale 6) History of Coronary Artery Disease * f/u cardiology consult, Dr. Villegas, help appreciated-->stable for discharge * Echocardiogram official report available in EMR * ASA 81mg po daily * Bisoprolol 5mg PO BID * Cozaar 100mg po daily * Crestor 20mg POqHS * lasix 20mg IV qdaily * Klor-con 10meq PO daily 7) Prophylaxis * Lovenox 30mg subqdaily * Florastor 250mg PO BID
--- NOTE | 2017-12-13 19:15 | PN ---
DATE: 12/13/2017 SUBJECTIVE: The patient denies chest pain, and shortness of breath has improved. She reported minimal wheezing. PHYSICAL EXAMINATION: VITAL SIGNS: Blood pressure 155/77, heart rate 88, temperature 98.5, respirations 20. HEENT: Normocephalic. CHEST: Minimal wheezing. HEART: S1 and S2, regular. ABDOMEN: Soft. EXTREMITIES: No edema. LABORATORY STUDIES: White count 28.4, hemoglobin and hematocrit 11.5 and 35.5, white count 447,000. Today's SMA-7 is within normal limits except glucose 167 and BUN of 27. Official echocardiography study report revealed ejection fraction in a range of 40-45% with global hypokinesis of the left ventricle and moderately dilated left atrium. ASSESSMENT: 1. Exacerbation of bronchial asthma. 2. Mildly depressed ejection fraction. 3. Coronary artery disease, status post in the past. 4. Uncontrolled diabetes mellitus. RECOMMENDATIONS: The case was discussed with the medical team. The patient can be discharged on her current medical management including hydralazine, aspirin, Cozaar, Crestor, metformin, and Zebeta. Scott Villegas MD
== END 2017-12-13 14:00 | disposition home or self-care (01) | DRG 190 ==
LOC: C.ER 12:45 → C.9E 16:37 → C.6T 16:55 → C.ER 12-10 12:45 → OBSVTOIN 12-10 15:54 → C.9E 12-10 16:37 → C.6T 12-10 16:55
PROVIDERS: ADMIT Internal Medicine; ATTEND Internal Medicine
DX: J44.0 Chronic obstructive pulmonary disease with (acute) lower respiratory infection (principal); J18.9 Pneumonia, unspecified organism; I50.20 Unspecified systolic (congestive) heart failure; J45.901 Unspecified asthma with (acute) exacerbation; J44.1 Chronic obstructive pulmonary disease with (acute) exacerbation; I45.9 Conduction disorder, unspecified; I25.10 Atherosclerotic heart disease of native coronary artery without angina pectoris; I11.0 Hypertensive heart disease with heart failure; H54.8 Legal blindness, as defined in USA; E78.5 Hyperlipidemia, unspecified; E11.65 Type 2 diabetes mellitus with hyperglycemia; R09.02 Hypoxemia; Z79.82 Long term (current) use of aspirin; Z95.5 Presence of coronary angioplasty implant and graft; Z79.4 Long term (current) use of insulin; E11.319 Type 2 diabetes mellitus with unspecified diabetic retinopathy without macular edema; E11.40 Type 2 diabetes mellitus with diabetic neuropathy, unspecified

== ENCOUNTER 2018-09-06 10:36 | Inpatient (IN) | payer MEDICAID, MEDICARE, OTHER ==
[2018-09-06 10:36] VITALS: BMI 26.0
[2018-09-06] MEDS ORDERED: Albuterol 0.083% Inhal Sol (2.5 mg/3 mL) UD INH STA (12:42)
[2018-09-06] MEDS ORDERED: Albuterol-Ipratrop 3 mg / 0.5 (3 ml) UD IH STA (12:42)
[2018-09-06] MEDS ORDERED: Albuterol 0.083% Inhal Sol (2.5 mg/3 mL) UD ONE (13:02)
[2018-09-06] MEDS ORDERED: Albuterol-Ipratrop 3 mg / 0.5 (3 ml) UD ONE ×2 (13:02→17:33)
[2018-09-06 13:06] LABS: BASO % 0.2 % (0.0-2.0); EOS # 0.1 K/uL (0.0-0.7); EOS % 0.3 % (0.0-4.0); HEMOGLOBIN 10.8 g/dL (11.0-16.0); LYMPH % 5.3 % (20.0-40.0); MEAN CELL VOLUME 79.8 fL (81.0-99.0); MEAN CORPUSCULAR HEMOGLOBIN 26.1 pg (27.0-31.0); MEAN CORPUSCULAR HGB CONC 32.7 g/dL (33.0-37.0); MONO # 1.1 K/uL (0.0-0.8); MONO % 5.7 % (0.0-10.0); NEUT # 17.1 K/uL (1.8-7.0); NEUT % 88.5 % (50.0-75.0); PLATELET COUNT 364 K/uL (130-400); RBC 4.15 Mil/uL (3.80-5.20); RED CELL DISTRIBUTION WIDTH 15.7 % (11.5-14.5); WHITE BLOOD COUNT 19.4 K/uL (4.8-10.8)
[2018-09-06 13:13] LABS: SQUAMOUS EPITHIAL 2 /hpf (0-5); URINE BACTERIA RARE (<OCC); URINE BILIRUBIN NEGATIVE (NEGATIVE); URINE BLOOD NEGATIVE (NEGATIVE); URINE CLARITY Clear (Clear); URINE COLOR Yellow (YELLOW); URINE GLUCOSE (UA) 1+ mg/dL (Normal); URINE LEUKOCYTE ESTERASE TRACE Leu/uL (Negative); URINE PROTEIN 2+ mg/dL (NEGATIVE); URINE UROBILINOGEN NORMAL mg/dL (0.2-1.0)
[2018-09-06 13:15] LABS: INR 1.1
--- NOTE | 2018-09-06 13:24 | RAD ---
Chest x-ray single frontal view History: Shortness of breath. Comparison: 04/16/2018 Findings: Mild to moderate venous congestion. Patchy bibasilar airspace opacities. Questionable small bilateral pleural effusions. Cardiomegaly. Tortuous ectatic aorta. Bilateral hilar prominence. Degenerative changes in the spine and shoulders. Upper lobe granulomatous changes. Impression: Mild to moderate venous congestion. Patchy bibasilar airspace opacities. Questionable small bilateral pleural effusions. Cardiomegaly. Tortuous ectatic aorta. Bilateral hilar prominence.
[2018-09-06 13:26] LABS: ALB/GLOB RATIO 1.4 (1.0-2.1); ALBUMIN 4.1 g/dL (3.5-5.0); ALT/SGPT 36 U/L (9-52); AST/SGOT 46 U/L (14-36); BLOOD UREA NITROGEN 21 mg/dL (7-17); CALCIUM 9.6 mg/dl (8.6-10.4); GFR NON-AFRICAN AMERICAN 57
[2018-09-06 13:30] LABS: ANISOCYTOSIS SLIGHT; BANDS 1 % (0-2); BASOPHIL 2 % (0-2); HYPOCHROMIC SLIGHT; LYMPHOCYTE 8 % (20-40); MONOCYTE 5 % (0-10); NEUTROPHIL 84 % (50-75); PLATELET ESTIMATE NORMAL (NORMAL); POIKILOCYTOSIS SLIGHT; TOTAL CELLS COUNTED 100
[2018-09-06 13:31] LABS: GIANT PLATELETS PRESENT
[2018-09-06 13:37] LABS: B-TYPE NATRIURETIC PEPTIDE 1930 pg/mL (0-900); CK-MB 1.79 ng/mL (0.0-3.38)
--- NOTE | 2018-09-06 14:04 | C.PDOC ---
History Of Present Illness 58 y/o female presents to the ER complaining of shortness of breath which began yesterday. Patient states that she has history of CHF and COPD. Patient denies having CP,fever,chills, nausea, vomiting, and abdominal pain. Time Seen by Provider: 09/06/18 12:05 Chief Complaint (Nursing): Shortness Of Breath History Per: Patient History/Exam Limitations: no limitations Onset/Duration Of Symptoms: Days Current Symptoms Are (Timing): Still Present Severity: Moderate Past Medical History Reviewed: Historical Data, Nursing Documentation, Vital Signs Vital Signs: Last Vital Signs Temp 98.6 F 09/06/18 10:53 Pulse 99 H 09/06/18 12:15 Resp 28 H 09/06/18 12:15 BP 157/58 H 09/06/18 12:15 Pulse Ox 98 09/06/18 12:15 - Medical History PMH: Asthma, CHF, COPD, Diabetes, HTN, Hypercholesterolemia Denies: Chronic Kidney Disease Surgical History: Cholecystectomy, Coronary Stent (x3) - [facility] Procedures CORONAR ARTERIOGR-2 CATH (06/02/14) LEFT HEART CARDIAC CATH (06/02/14) LT HEART ANGIOCARDIOGRAM (06/02/14) NON-INVASIVE MECHANICAL VENTILATION (06/02/14) OTHER ENDOSCOPY OF SM INTEST (06/02/14) Family History: States: No Known Family Hx - Social History Hx Tobacco Use: No (NO ANSWER) Hx Alcohol Use: No Hx Substance Use: No - Immunization History Hx Tetanus Toxoid Vaccination: No Hx Influenza Vaccination: No Hx Pneumococcal Vaccination: No Review Of Systems Except As Marked, All Systems Reviewed And Found Negative. Constitutional: Negative for: Fever, Chills Cardiovascular: Negative for: Chest Pain Respiratory: Positive for: Shortness of Breath Gastrointestinal: Negative for: Nausea, Vomiting, Abdominal Pain Physical Exam - Physical Exam Appears: Other (tachypneic) Skin: Normal Color, Warm, Dry Head: Atraumatic, Normacephalic Eye(s): bilateral: Normal Inspection Nose: Normal Oral Mucosa: Moist Neck: Supple Chest: Symmetrical Cardiovascular: Rhythm Regular Respiratory: Rales (some rales in bases), No Rhonchi, No Wheezing, Other (tachypneic) Gastrointestinal/Abdominal: Soft, No Tenderness, No Guarding, No Rebound Extremity: Normal ROM, Other (bilateral lower extremity edema) Neurological/Psych: Oriented x3, Normal Speech ED Course And Treatment - Laboratory Results Result Diagrams: 09/06/18 12:55 09/06/18 12:55 Lab Results: PT 12.0 SECONDS (9.7-12.2) 09/06/18 12:55 INR 1.1 09/06/18 12:55 APTT 38 SECONDS (21-34) H 09/06/18 12:55 Troponin I < 0.0120 ng/mL (0.00-0.120) 09/06/18 12:55 NT-Pro-B Natriuret Pep 1930 pg/mL (0-900) H 09/06/18 12:55 Total Bilirubin 0.5 mg/dL (0.2-1.3) 09/06/18 12:55 AST 46 U/L (14-36) H D 09/06/18 12:55 ALT 36 U/L (9-52) 09/06/18 12:55 Alkaline Phosphatase 108 U/L (38-126) 09/06/18 12:55 Total Protein 7.1 g/dL (6.3-8.3) 09/06/18 12:55 Albumin 4.1 g/dL (3.5-5.0) 09/06/18 12:55 Globulin 3.0 gm/dL (2.2-3.9) 09/06/18 12:55 Albumin/Globulin Ratio 1.4 (1.0-2.1) 09/06/18 12:55 Urine Color Yellow (YELLOW) 09/06/18 12:55 Urine Clarity Clear (Clear) 09/06/18 12:55 Urine pH 5.0 (5.0-8.0) 09/06/18 12:55 Ur Specific Carlton 1.011 (1.003-1.030) 09/06/18 12:55 Urine Protein 2+ mg/dL (NEGATIVE) H 09/06/18 12:55 Urine Glucose (UA) 1+ mg/dL (Normal) 09/06/18 12:55 Urine Ketones Negative mg/dL (NEGATIVE) 09/06/18 12:55 Urine Blood Negative (NEGATIVE) 09/06/18 12:55 Urine Nitrate Negative (NEGATIVE) 09/06/18 12:55 Urine Bilirubin Negative (NEGATIVE) 09/06/18 12:55 Urine Urobilinogen Normal mg/dL (0.2-1.0) 09/06/18 12:55 Ur Leukocyte Esterase Trace Juarez/uL (Negative) 09/06/18 12:55 Urine WBC (Auto) 6 /hpf (0-5) H 09/06/18 12:55 Urine RBC (Auto) 1 /hpf (0-3) 09/06/18 12:55 Ur Squamous Epith Cells 2 /hpf (0-5) 09/06/18 12:55 Urine Bacteria Rare (<OCC) 09/06/18 12:55 O2 Sat by Pulse Oximetry: 98 (RA) Pulse Ox Interpretation: Normal Progress Note: Labs, UA, and CXR ordered. Patient treated with Albuterol, neb ulizer, and Lasix IV. Patient's PMD Dr. Reyna is on vacation and hospitalist is covering for him. Case discussed with who accepts admission. Patient has been admitted to Telemetry. Disposition - Disposition Disposition: HOSPITALIZED Disposition Time: 14:28 Condition: FAIR - Clinical Impression Clinical Impression: Congestive heart failure - PA / [employer]PARTMENT [employer] OFFICER / Resident Statement MD/DO has reviewed & agrees with the documentation as recorded. - Scribe Statement The provider has reviewed the documentation as recorded by the Parmjit Truong Provider Attestation All medical record entries made by the Scribe were at my direction and personally dictated by me. I have reviewed the chart and agree that the record accurately reflects my personal performance of the history, physical exam, medical decision making, and the department course for this patient. I have also personally directed, reviewed, and agree with the discharge instructions and disposition. Decision To Admit - Pt Status Changed To: Hospital Disposition Of: Observation - . Bed Request Type: Telemetry Admitting Physician: Carlos Massey Patient Diagnosis: Congestive heart failure
--- NOTE | 2018-09-06 14:34 | CP.PCM.HP ---
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 Pt has been persistnetly SOB for many years but usually is able to tolerate moderate exertion. Yesterday she states she was cleaning her bathroom, used a spray which induced her to cough. Her cough did not subside after using her home nebulizer. Pt then went to try to sleep but was unable to lie flat. Pt says she had to sleep on the couch upright last night. She also reports vomiting this morning, looked like her food. Pt also complains of chronic knee pain today, she would like to get an X Ray of the knee. ROS: Pos SOB at rest, cough, insomnia, leg swelling Neg CP, FC, NV, blood in stool/urine/sputum, syncope, numbness, radiating pains, abd pain, headaches, dizziness, admitted 12/07 for asthma exacerbation and was d/c home on a prednisone taper PMD Axel, Cardio Martinisaak PMHx CHF, COPD, HTN, HLD, DM, CAD PSx sents x3 2009 FHx denies SocHx denies ETOH SMoking Drugs Home meds per EMR Present on Admission - Present on Admission Any Indicators Present on Admission: No Review of Systems - Review of Systems All systems: reviewed and no additional remarkable complaints except (as per HPI) Past Patient History - Infectious Disease Hx of Infectious Diseases: None - Past Medical History & Family History Past Medical History?: Yes - Past Social History Smoking Status: Never Smoked - CARDIAC Hx Congestive Heart Failure: Yes Hx Hypercholesterolemia: Yes Hx Hypertension: Yes - PULMONARY Hx Asthma: Yes Hx Chronic Obstructive Pulmonary Disease (COPD): Yes - NEUROLOGICAL Hx Neurological Disorder: No - HEENT Hx HEENT Problems: Yes Other/Comment: Retinal detachment - RENAL Hx Chronic Kidney Disease: No - ENDOCRINE/METABOLIC Hx Endocrine Disorders: Yes Hx Diabetes Mellitus Type 2: Yes - HEMATOLOGICAL/ONCOLOGICAL Hx Blood Disorders: No - INTEGUMENTARY Hx Dermatological Problems: No - MUSCULOSKELETAL/RHEUMATOLOGICAL Hx Musculoskeletal Disorders: No Hx Falls: No - GASTROINTESTINAL Hx Gastrointestinal Disorders: No - GENITOURINARY/GYNECOLOGICAL Hx Genitourinary Disorders: No - PSYCHIATRIC Hx Substance Use: No - SURGICAL HISTORY Hx Cholecystectomy: Yes Hx Coronary Stent: Yes (x3) - ANESTHESIA Hx Anesthesia: Yes Hx Anesthesia Reactions: No Hx Malignant Hyperthermia: No Meds Allergies/Adverse Reactions: Allergies Allergy/AdvReac Type Severity Reaction Status Date / Time enalapril Allergy ANAPHYLAXIS Verified 12/06/17 13:09 Physical Exam - Additional Findings Additional findings: Appears: In distress Skin: Normal Color, Warm, Dry Head: Atraumatic, Normacephalic Eye(s): bilateral: Normal Inspection, PERRLA, EOMI Nose: Normal Oral Mucosa: Moist Neck: Supple, no lymphadenopathy Chest: Symmetrical Cardiovascular: Rhythm Regular, + s1 and s2 Respiratory: Normal Breath Sounds, No Rales, No Rhonchi, No Wheezing Gastrointestinal/Abdominal: Soft Extremities: +2 edema roberto to proximal garcia Results - Vital Signs Recent Vital Signs: Last Vital Signs Temp 98.4 F 09/06/18 14:21 Pulse 95 H 09/06/18 14:21 Resp 20 09/06/18 14:21 BP 137/51 L 09/06/18 14:21 Pulse Ox 98 09/06/18 14:29 - Labs Result Diagrams: 09/06/18 12:55 09/06/18 12:55 Labs: Laboratory Results - last 24 hr 09/06/18 09/06/18 09/06/18 12:55 12:55 12:55 WBC 19.4 H RBC 4.15 Hgb 10.8 L Hct 33.1 L MCV 79.8 L MCH 26.1 L MCHC 32.7 L RDW 15.7 H Plt Count 364 D MPV 9.0 Neut % (Auto) 88.5 H Lymph % (Auto) 5.3 L [place] % (Auto) 5.7 Eos % (Auto) 0.3 Baso % (Auto) 0.2 Neut # (Auto) 17.1 H Lymph # (Auto) 1.0 [place] # (Auto) 1.1 H Eos # (Auto) 0.1 Baso # (Auto) 0.0 Neutrophils % (Manual) 84 H Band Neutrophils % 1 Lymphocytes % (Manual) 8 L Monocytes % (Manual) 5 Basophils % (Manual) 2 Platelet Estimate Normal Giant Platelets Present Hypochromasia (manual) Slight Poikilocytosis (manual Slight Anisocytosis (manual) Slight PT 12.0 INR 1.1 APTT 38 H Sodium Potassium Chloride Carbon Dioxide Anion Gap BUN Creatinine Est GFR ( Amer) Est GFR (Non-Af Amer) Random Glucose Calcium Total Bilirubin AST ALT Alkaline Phosphatase Total Creatine Kinase CK-MB (Mass) Troponin I NT-Pro-B Natriuret Pep Total Protein Albumin Globulin Albumin/Globulin Ratio Urine Color Yellow Urine Clarity Clear Urine pH 5.0 Ur Specific [place] 1.011 Urine Protein 2+ H Urine Glucose (UA) 1+ Urine Ketones Negative Urine Blood Negative Urine Nitrate Negative Urine Bilirubin Negative Urine Urobilinogen Normal Ur Leukocyte Esterase Trace Urine WBC (Auto) 6 H Urine RBC (Auto) 1 Ur Squamous Epith Cells 2 Urine Bacteria Rare 09/06/18 12:55 WBC RBC Hgb Hct MCV MCH MCHC RDW Plt Count MPV Neut % (Auto) Lymph % (Auto) [place] % (Auto) Eos % (Auto) Baso % (Auto) Neut # (Auto) Lymph # (Auto) [place] # (Auto) Eos # (Auto) Baso # (Auto) Neutrophils % (Manual) Band Neutrophils % Lymphocytes % (Manual) Monocytes % (Manual) Basophils % (Manual) Platelet Estimate Giant Platelets Hypochromasia (manual) Poikilocytosis (manual Anisocytosis (manual) PT INR APTT Sodium 136 Potassium 4.5 Chloride 97 L Carbon Dioxide 25 Anion Gap 19 BUN 21 H Creatinine 1.0 Est GFR ( Amer) > 60 Est GFR (Non-Af Amer) 57 Random Glucose 364 H Calcium 9.6 Total Bilirubin 0.5 AST 46 H D ALT 36 Alkaline Phosphatase 108 Total Creatine Kinase 90 CK-MB (Mass) 1.79 Troponin I < 0.0120 NT-Pro-B Natriuret Pep 1930 H Total Protein 7.1 Albumin 4.1 Globulin 3.0 Albumin/Globulin Ratio 1.4 Urine Color Urine Clarity Urine pH Ur Specific [place] Urine Protein Urine Glucose (UA) Urine Ketones Urine Blood Urine Nitrate Urine Bilirubin Urine Urobilinogen Ur Leukocyte Esterase Urine WBC (Auto) Urine RBC (Auto) Ur Squamous Epith Cells Urine Bacteria Assessment & Plan - Assessment and Plan (Free Text) Plan: 1) Community Acquired Pneumonia * cxray : bilateral infiltrates * Azithromycin 500mg IV q daily * Rocephin 1 gram IV q 12 * Duonebs RQ4H * Solu-Medrol 40 IVP 2) CHF exacerbation * Lasix 40 IVP given in ED * Lasix 40 IVP BID on * Monitor I&Os * Hydralazine 25mg po daily * Cozaar 100mg po daily * Bisoprolol 5mg PO BID 3) Hypertension * Hydralazine 25mg po daily * Cozaar 100mg po daily * lasix 40mg IV BID * Klor-con 10meq PO daily * Bisoprolol 5mg PO BID 4) Lipid Disorder * Crestor 20mg POqHS 5) DMII * Metformin 500mg po tid * ISS High * Novolin 70/30 30 u sc bid * Januvia 100mg po daily * accuchecks QAC and HS 6) History of Coronary Artery Disease * f/u cardiology consult, Dr. Villegas * Echocardiogram oredred f/u read * f/u ROMIs, negx1 * ASA 81mg po daily * Bisoprolol 5mg PO BID * Cozaar 100mg po daily * Crestor 20mg POqHS * lasix 20mg IV qdaily * Klor-con 10meq PO daily 7) Prophylaxis * ASA 81 qd * Heparin 5000u sc 8hr * Florastor 250mg PO BID <Carlos Massey H - Last Filed: 09/06/18 17:23> Results - Vital Signs Recent Vital Signs: Last Vital Signs Temp 98.4 F 09/06/18 14:21 Pulse 95 H 09/06/18 14:21 Resp 20 09/06/18 14:21 BP 137/51 L 09/06/18 14:21 Pulse Ox 98 09/06/18 17:07 - Labs Result Diagrams: 09/06/18 12:55 09/06/18 12:55 Labs: Laboratory Results - last 24 hr 09/06/18 09/06/18 09/06/18 12:55 12:55 12:55 WBC 19.4 H RBC 4.15 Hgb 10.8 L Hct 33.1 L MCV 79.8 L MCH 26.1 L MCHC 32.7 L RDW 15.7 H Plt Count 364 D MPV 9.0 Neut % (Auto) 88.5 H Lymph % (Auto) 5.3 L [place] % (Auto) 5.7 Eos % (Auto) 0.3 Baso % (Auto) 0.2 Neut # (Auto) 17.1 H Lymph # (Auto) 1.0 [place] # (Auto) 1.1 H Eos # (Auto) 0.1 Baso # (Auto) 0.0 Neutrophils % (Manual) 84 H Band Neutrophils % 1 Lymphocytes % (Manual) 8 L Monocytes % (Manual) 5 Basophils % (Manual) 2 Platelet Estimate Normal Giant Platelets Present Hypochromasia (manual) Slight Poikilocytosis (manual Slight Anisocytosis (manual) Slight PT 12.0 INR 1.1 APTT 38 H Sodium Potassium Chloride Carbon Dioxide Anion Gap BUN Creatinine Est GFR ( Amer) Est GFR (Non-Af Amer) Random Glucose Calcium Total Bilirubin AST ALT Alkaline Phosphatase Total Creatine Kinase CK-MB (Mass) Troponin I NT-Pro-B Natriuret Pep Total Protein Albumin Globulin Albumin/Globulin Ratio Urine Color Yellow Urine Clarity Clear Urine pH 5.0 Ur Specific [place] 1.011 Urine Protein 2+ H Urine Glucose (UA) 1+ Urine Ketones Negative Urine Blood Negative Urine Nitrate Negative Urine Bilirubin Negative Urine Urobilinogen Normal Ur Leukocyte Esterase Trace Urine WBC (Auto) 6 H Urine RBC (Auto) 1 Ur Squamous Epith Cells 2 Urine Bacteria Rare 09/06/18 09/06/18 12:55 16:49 WBC RBC Hgb Hct MCV MCH MCHC RDW Plt Count MPV Neut % (Auto) Lymph % (Auto) [place] % (Auto) Eos % (Auto) Baso % (Auto) Neut # (Auto) Lymph # (Auto) [place] # (Auto) Eos # (Auto) Baso # (Auto) Neutrophils % (Manual) Band Neutrophils % Lymphocytes % (Manual) Monocytes % (Manual) Basophils % (Manual) Platelet Estimate Giant Platelets Hypochromasia (manual) Poikilocytosis (manual Anisocytosis (manual) PT INR APTT Sodium 136 Potassium 4.5 Chloride 97 L Carbon Dioxide 25 Anion Gap 19 BUN 21 H Creatinine 1.0 Est GFR ( Amer) > 60 Est GFR (Non-Af Amer) 57 Random Glucose 364 H Calcium 9.6 Total Bilirubin 0.5 AST 46 H D ALT 36 Alkaline Phosphatase 108 Total Creatine Kinase 90 90 CK-MB (Mass) 1.79 2.01 Troponin I < 0.0120 < 0.0120 NT-Pro-B Natriuret Pep 1930 H Total Protein 7.1 Albumin 4.1 Globulin 3.0 Albumin/Globulin Ratio 1.4 Urine Color Urine Clarity Urine pH Ur Specific [place] Urine Protein Urine Glucose (UA) Urine Ketones Urine Blood Urine Nitrate Urine Bilirubin Urine Urobilinogen Ur Leukocyte Esterase Urine WBC (Auto) Urine RBC (Auto) Ur Squamous Epith Cells Urine Bacteria Attending/Attestation - Attestation I have personally seen and examined this patient.: Yes I have fully participated in the care of the patient.: Yes I have reviewed all pertinent clinical information: Yes Notes (Text): 09/06/18 17:21 Medical attending: Patient was seen and examined by me. Reviewed the above note by the resident and agree with the above We will consult patient's pharmacy informatics specialist Also for now will try azithromycin and rocpehin emperically until the blood cultures return Patient also recived lasix IV and she reports it seems to feel better and easier breathing now The patient also will get an echo at this time Carlos Massey
[2018-09-06 17:20] LABS: CK-MB 2.01 ng/mL (0.0-3.38)
[2018-09-06] MEDS ORDERED: Azithromycin 500mg/250ML NS 500 MG/250 ML BAG IVPB ONE (17:33)
[2018-09-06] MEDS: Albuterol-Ipratrop 3 mg / 0.5 (3 ml) UD INH SCH ×2 (17:38→20:05)
[2018-09-06] MEDS: Azithromycin 500 MG in Sodium Chloride 0.9% 250 ML IVPB SCH (17:40)
[2018-09-06] MEDS: (Novolin 70/30) NPH/Regular 70/30 Units/ml 10 ml vial SC SCH (19:11)
[2018-09-06] MEDS ORDERED: guaiFENesin 100 mg/5 ml Syrup UD PO ONE (20:05)
[2018-09-06] MEDS ORDERED: Glucagon Recombinant 1 mg Inj IM PRN (21:55)
[2018-09-06] MEDS ORDERED: Dextrose 50% SYRINGE Inj (50 ml) IV PRN (21:55)
[2018-09-06] MEDS: (Novolog) Insulin Aspart, Recombinant 100 u/ml 10 ml vial SC SCH (22:31)
[2018-09-07] MEDS: Albuterol-Ipratrop 3 mg / 0.5 (3 ml) UD INH SCH ×7 (00:25→23:39)
[2018-09-07] MEDS ORDERED: guaiFENesin 100 mg/5 ml Syrup UD PO ONE (05:38)
[2018-09-07] MEDS: (Novolog) Insulin Aspart, Recombinant 100 u/ml 10 ml vial SC SCH ×4 (07:42→22:08)
[2018-09-07] MEDS: (Novolin 70/30) NPH/Regular 70/30 Units/ml 10 ml vial SC SCH ×4 (08:00→22:09)
[2018-09-07] MEDS ORDERED: Pneumococcal 23-Valent Vaccine IM ONE (10:00)
[2018-09-07] MEDS ORDERED: Influenza Vaccine 60 mcg/0.5 mL SYR (4YR UP) IM ONE (10:00)
[2018-09-07] MEDS: Potassium Chloride 10 mEq ER Tab PO SCH (10:42)
[2018-09-07] MEDS: MethylPREDNISolone 40 mg Vial IVP SCH ×2 (12:59→21:03)
[2018-09-07] MEDS: guaiFENesin 100 mg/5 ml Syrup UD PO PRN ×2 (13:09→21:03)
--- NOTE | 2018-09-07 13:45 | CP.PCM.PN ---
<DenisaMichelle Y - Last Filed: 09/07/18 13:34> Subjective - Date & Time of Evaluation Date of Evaluation: 09/07/18 Time of Evaluation: 10:30 - Subjective Subjective: PGY-1 Medicine Progress note for Dr. Massey covering for Dr. Reyna Patient was seen and examined today at bedside in no acute distress. Nurse reports no overnight events. Patient is requesting Robitussin for her intermittent dry cough. She admitted she has not been compliant with her Breo- Ellipta at home since she uses it as a rescue inhaler. Denies chest pain, s hortness of breath, abdominal pain, nausea, vomiting, headache, difficulty urinating or having a BM. Objective - Vital Signs/Intake and Output Vital Signs (last 24 hours): Temp Pulse Resp BP Pulse Ox 97.8 F 98 H 18 140/72 98 09/07/18 07:00 09/07/18 07:54 09/07/18 07:00 09/07/18 10:45 09/07/18 07:00 Intake and Output: 09/07/18 09/07/18 06:59 18:59 Intake Total 250 Balance 250 - Medications Medications: Current Medications Albuterol/Ipratropium (Duoneb 3 Mg/0.5 Mg (3 Ml) Ud) 3 ml INH RQ4 [facility] Last Admin: 09/07/18 13:12 Dose: 3 ml Aspirin (Aspirin Chewable) 81 mg PO DAILY [facility] Last Admin: 09/07/18 10:42 Dose: 81 mg Bisoprolol Fumarate (Zebeta) 5 mg PO BID [facility] Last Admin: 09/07/18 10:48 Dose: 5 mg Dextrose (Dextrose 50% Inj) 0 ml IV STAT PRN; Protocol PRN Reason: Hypoglycemia Protocol Dextrose (Glutose 15) 0 gm PO ONCE PRN; Protocol PRN Reason: Hypoglycemia Protocol Famotidine (Pepcid) 20 mg PO DAILY [facility] Last Admin: 09/07/18 10:42 Dose: 20 mg Fluticasone/Vilanterol (Breo Ellipta 100-25 Mcg Inh) 1 puff INH RQD [facility] Furosemide (Lasix) 40 mg IVP BID [facility] Last Admin: 09/07/18 10:45 Dose: 40 mg Glucagon (Glucagen Diagnostic Kit) 0 mg IM STAT PRN; Protocol PRN Reason: Hypoglycemia Protocol Guaifenesin (Robitussin) 100 mg PO Q6 PRN PRN Reason: Cough Last Admin: 09/07/18 13:09 Dose: 100 mg Heparin Sodium (Porcine) (Heparin) 5,000 units SC Q8 [facility] Last Admin: 09/07/18 13:02 Dose: 5,000 units Hydralazine HCl (Apresoline) 25 mg PO DAILY [facility] Last Admin: 09/07/18 10:42 Dose: 25 mg Azithromycin 500 mg/ Sodium (Chloride) 250 mls @ 250 mls/hr IVPB Q24H [facility]; Protocol Last Admin: 09/06/18 17:40 Dose: 250 mls/hr Ceftriaxone Sodium 1 gm/ (Sodium Chloride) 100 mls @ 100 mls/hr IVPB Q12H [facility]; Protocol Last Admin: 09/07/18 04:50 Dose: 100 mls/hr Dextrose (Dextrose 5% In Water 1000 Ml) 1,000 mls @ 0 mls/hr IV .Q0M PRN; Protocol PRN Reason: Hypoglycemia Protocol Insulin Aspart (Novolog) 0 unit SC ACHS [facility]; Protocol Last Admin: 09/07/18 12:17 Dose: 6 units Insulin Human Isoph/Insulin Regular (Novolin 70/30 (70/30 Units/Ml) 10 Ml) 40 units SC BIDCC [facility] Last Admin: 09/07/18 12:20 Dose: 40 units Losartan Potassium (Cozaar) 100 mg PO DAILY [facility] Last Admin: 09/07/18 10:42 Dose: 100 mg Metformin HCl (Glucophage) 1,000 mg PO DAILY [facility] Last Admin: 09/07/18 10:42 Dose: 1,000 mg Methylprednisolone (Solu-Medrol) 40 mg IVP Q8H [facility] Last Admin: 09/07/18 12:59 Dose: 40 mg Potassium Chloride (Klor-Con 10) 10 meq PO DAILY [facility] Last Admin: 09/07/18 10:42 Dose: 10 meq Rosuvastatin Calcium (Crestor) 20 mg PO HS [facility] Last Admin: 09/06/18 22:31 Dose: 20 mg - Labs Labs: 09/06/18 12:55 09/06/18 12:55 PT 12.0 SECONDS (9.7-12.2) 09/06/18 12:55 INR 1.1 09/06/18 12:55 APTT 34 SECONDS (21-34) 09/07/18 06:58 - Constitutional Appears: Well, No Acute Distress, Chronically Ill - Head Exam Head Exam: ATRAUMATIC, NORMOCEPHALIC - Eye Exam Eye Exam: EOMI, Normal appearance, PERRL Pupil Exam: NORMAL ACCOMODATION - ENT Exam ENT Exam: Mucous Membranes Moist - Respiratory Exam Respiratory Exam: Rales, Wheezes, NORMAL BREATHING PATTERN Additional comments: 2L O2 via NC - Cardiovascular Exam Cardiovascular Exam: REGULAR RHYTHM, +S1, +S2 - GI/Abdominal Exam GI & Abdominal Exam: Soft, Normal Bowel Sounds. absent: Tenderness - Extremities Exam Extremities Exam: Normal Capillary Refill, Pedal Edema Additional comments: 1+ pitting edema in bilateral LE - Neurological Exam Neurological Exam: Alert, Awake, Normal Gait, Oriented x3 - Psychiatric Exam Psychiatric exam: Anxious, Normal Mood - Skin Skin Exam: Dry, Normal Color, Warm Assessment and Plan - Assessment and Plan (Free Text) Assessment: 58yo F with PMHx CHF, COPD, DM, HTN, HLD, CAD s/p 3 stents admitted for CHF vs COPD exacerbation. Plan: Community Acquired Pneumonia * CXR (09/06): bilateral infiltrates * repeat CXR (09/07): pending read * Azithromycin 500mg IV daily (started 09/06) * Rocephin 1 gram IV q12 (started 09/06) * Duonebs rQ4 * Solu-Medrol 40 IVP q8 * Breo-Ellipta 1 puff INH daily * Robitussin 100mg po q6 prn for cough CHF exacerbation * Lasix 40mg IVP given in ED * Lasix 40mg IVP BID * Monitor I&Os * Hydralazine 25mg po daily * Cozaar 100mg po daily * Bisoprolol 5mg PO BID Hypertension * Hydralazine 25mg po daily * Cozaar 100mg po daily * Lasix 40mg IV BID * Klor-con 10meq PO daily * Bisoprolol 5mg PO BID Lipid Disorder * Crestor 20mg POqHS DMII * Metformin 500mg po tid * ISS High * Novolin 70/30 30 u sc bid * Januvia 100mg po daily * Accuchecks QAC and HS History of Coronary Artery Disease * f/u cardiology consult, Dr. Villegas * Echocardiogram oredred f/u read * ROMIs neg x3 * ASA 81mg po daily * Bisoprolol 5mg PO BID * Cozaar 100mg po daily * Crestor 20mg POqHS * Lasix 20mg IV qdaily * Klor-con 10meq PO daily Prophylaxis * ASA 81 qd * Heparin 5000u sc 8hr * Pepcid 20mg po daily * Florastor 250mg PO BID d/w Dr. Shilpa Crawley PGY-1 <Carlos Massey H - Last Filed: 09/07/18 18:28> Objective - Vital Signs/Intake and Output Vital Signs (last 24 hours): Temp Pulse Resp BP Pulse Ox 97.8 F 96 H 18 147/71 96 09/07/18 15:10 09/07/18 15:10 09/07/18 15:10 09/07/18 17:40 09/07/18 15:10 Intake and Output: 09/07/18 09/07/18 06:59 18:59 Intake Total 250 480 Balance 250 480 - Medications Medications: Current Medications Albuterol/Ipratropium (Duoneb 3 Mg/0.5 Mg (3 Ml) Ud) 3 ml INH RQ4 [facility] Last Admin: 09/07/18 15:52 Dose: 3 ml Aspirin (Aspirin Chewable) 81 mg PO DAILY [facility] Last Admin: 09/07/18 10:42 Dose: 81 mg Bisoprolol Fumarate (Zebeta) 5 mg PO BID [facility] Last Admin: 09/07/18 17:40 Dose: 5 mg Dextrose (Dextrose 50% Inj) 0 ml IV STAT PRN; Protocol PRN Reason: Hypoglycemia Protocol Dextrose (Glutose 15) 0 gm PO ONCE PRN; Protocol PRN Reason: Hypoglycemia Protocol Famotidine (Pepcid) 20 mg PO DAILY [facility] Last Admin: 09/07/18 10:42 Dose: 20 mg Fluticasone/Vilanterol (Breo Ellipta 100-25 Mcg Inh) 1 puff INH RQD [facility] Furosemide (Lasix) 40 mg IVP BID [facility] Last Admin: 09/07/18 17:40 Dose: 40 mg Glucagon (Glucagen Diagnostic Kit) 0 mg IM STAT PRN; Protocol PRN Reason: Hypoglycemia Protocol Guaifenesin (Robitussin) 100 mg PO Q6 PRN PRN Reason: Cough Last Admin: 09/07/18 13:09 Dose: 100 mg Heparin Sodium (Porcine) (Heparin) 5,000 units SC Q8 [facility] Last Admin: 09/07/18 13:02 Dose: 5,000 units Hydralazine HCl (Apresoline) 25 mg PO DAILY [facility] Last Admin: 09/07/18 10:42 Dose: 25 mg Azithromycin 500 mg/ Sodium (Chloride) 250 mls @ 250 mls/hr IVPB Q24H [facility]; Protocol Last Admin: 09/07/18 16:17 Dose: 250 mls/hr Ceftriaxone Sodium 1 gm/ (Sodium Chloride) 100 mls @ 100 mls/hr IVPB Q12H [facility]; Protocol Last Admin: 09/07/18 16:16 Dose: 100 mls/hr Dextrose (Dextrose 5% In Water 1000 Ml) 1,000 mls @ 0 mls/hr IV .Q0M PRN; Protocol PRN Reason: Hypoglycemia Protocol Insulin Aspart (Novolog) 0 unit SC ACHS [facility]; Protocol Last Admin: 09/07/18 17:39 Dose: 3 units Insulin Human Isoph/Insulin Regular (Novolin 70/30 (70/30 Units/Ml) 10 Ml) 40 units SC BIDCC [facility] Last Admin: 09/07/18 17:56 Dose: Not Given Losartan Potassium (Cozaar) 100 mg PO DAILY [facility] Last Admin: 09/07/18 10:42 Dose: 100 mg Metformin HCl (Glucophage) 1,000 mg PO DAILY [facility] Last Admin: 09/07/18 10:42 Dose: 1,000 mg Methylprednisolone (Solu-Medrol) 40 mg IVP Q8H [facility] Last Admin: 09/07/18 12:59 Dose: 40 mg Potassium Chloride (Klor-Con 10) 10 meq PO DAILY [facility] Last Admin: 09/07/18 10:42 Dose: 10 meq Rosuvastatin Calcium (Crestor) 20 mg PO HS [facility] Last Admin: 09/06/18 22:31 Dose: 20 mg - Labs Labs: 09/06/18 12:55 09/06/18 12:55 PT 12.0 SECONDS (9.7-12.2) 09/06/18 12:55 INR 1.1 09/06/18 12:55 APTT 34 SECONDS (21-34) 09/07/18 06:58 Attending/Attestation - Attestation I have personally seen and examined this patient.: Yes I have fully participated in the care of the patient.: Yes I have reviewed all pertinent clinical information, including history, physical exam and plan: Yes Notes (Text): 09/07/18 18:27 Medical attending: Patient was seen and examined by me with the medical anthropology director. The above note was reviewed by me and agree with the above The patient was not in any acute distress today. We talked about her breathing medication and also she later went for the 2Decho as well At this time she remains on the IV abx Rocephin and Azithromycin Carlos Massey
--- NOTE | 2018-09-07 14:24 | RAD ---
Date of service: 09/07/2018 HISTORY: SOB, hx of CHF and asthma COMPARISON: 09/06/2018 FINDINGS: LUNGS: No consolidation appreciated PLEURA: No significant pleural effusion identified, no pneumothorax apparent. CARDIOVASCULAR: No aortic atherosclerotic calcification present. Borderline cardiomegaly. Mild pulmonary venous congestion suspect.-similar to slightly increased. OSSEOUS STRUCTURES: Thoracic spondylosis. VISUALIZED UPPER ABDOMEN: Normal. OTHER FINDINGS: None. IMPRESSION: Mild pulmonary venous congestion suspect. Similar slightly increased. Other findings as above.
[2018-09-07] MEDS: Azithromycin 500 MG in Sodium Chloride 0.9% 250 ML IVPB SCH (16:17)
--- NOTE | 2018-09-07 22:12 | CARD ---
APPROVED REPORT Date of service: 09/07/2018 EXAM: Two-dimensional and M-mode echocardiogram with Doppler and color Doppler. Other Information Quality : GoodRhythm : INDICATION Dyspnea Cardiac Disease: CAD COPD hx of CHF, CAD( 3 stents 2009) RISK FACTORS Hypertension Hyperlipidemia Diabetes 2D DIMENSIONS IVSd0.9 (0.7-1.1cm)LVDd4.9 (3.9-5.9cm) PWd1.0 (0.7-1.1cm)LA Yzebsy12 (18-58mL) LVDs4.5 (2.5-4.0cm)FS (%) 8.3 % LVEF (%)55.0 (>50%)LVEF (Melchor's)55.66 % M-Mode DIMENSIONS Left Atrium (MM)4.22 (2.5-4.0cm)IVSd0.94 (0.7-1.1cm) Aortic Root2.81 (2.2-3.7cm)LVDd4.88 (4.0-5.6cm) Aortic Cusp Exc.1.76 (1.5-2.0cm)PWd0.92 (0.7-1.1cm) FS (%) 29 %LVDs3.46 (2.0-3.8cm) LVEF (%)56 (>50%) Mitral Valve MV E Tnitcflg053.9cm/sMV A Glqrvruq673.4cm/sE/A ratio1.5 TDI Lateral E' Peak V6.58cm/sMedial E' Peak V7.97cm/sE/Lateral E'22.6 E/Medial E'18.7 Tricuspid Valve TR Peak [id number]/sTR Peak [id number] LEFT VENTRICLE The left ventricle is normal size. There is normal left ventricular wall thickness. The left ventricular function is normal. The left ventricular ejection fraction is within the normal range. There is normal LV segmental wall motion. The left ventricular diastolic function is normal. RIGHT VENTRICLE The right ventricle is normal size. ATRIA The left atrium is borderline dilated. The right atrium size is normal. AORTIC VALVE The aortic valve is normal in structure. MITRAL VALVE Mitral regurgitation is mild. TRICUSPID VALVE There is mild tricuspid regurgitation. <Conclusion> Normal LV systolic function. Borderline dilated LA. Mild MR. mild TR.
[2018-09-08] MEDS ORDERED: (Novolog) Insulin Aspart, Recombinant 100 u/ml 10 ml vial SC ONE (02:24)
[2018-09-08] MEDS: Albuterol-Ipratrop 3 mg / 0.5 (3 ml) UD INH SCH ×4 (03:21→19:17)
--- NOTE | 2018-09-08 04:21 | CON ---
DATE: 09/07/2018 CARDIOLOGY CONSULTATION REASON FOR CONSULTATION: Shortness of breath. HISTORY OF PRESENT ILLNESS: The patient is 58-year-old M[place]ese female who has a history of coronary artery disease, status post PCI in the past; has a history of bronchial asthma; longstanding diabetes mellitus with diabetic neuropathy; history of congestive heart failure, presents because of shortness of breath and cough. The patient was admitted in 03/2018 for exacerbation of chronic obstructive lung disease and was treated for underlying pneumonia in the meantime. At that time, the patient's EKG revealed sinus tachycardia with left bundle-branch block. The patient was treated for right lower lobe pneumonia and remained in the hospital for wheezing for few days. REVIEW OF SYSTEMS: The patient denies any retrosternal chest pain. Denies any dizziness or syncope. Denies any hemoptysis. MEDICATIONS: Hydralazine 25 mg once a day, aspirin 81 mg once a day, Zithromax 500 mg intravenously daily, Rocephin 1 g intravenously every 12 hours, Cozaar 100 mg once a day, Crestor 20 mg once a day, metformin 1 g daily, heparin 5000 units subcutaneously every 8 hours, Klor-Con 10 mEq once a day, Lasix 40 mg intravenously twice a day, Solu-Medrol 40 mg intravenously every 8 hours, and Zebeta 5 mg twice a day. PHYSICAL EXAMINATION: GENERAL: The patient is a middle-aged female who does not appear to be in acute distress. VITAL SIGNS: Blood pressure 140/72, heart rate 98, temperature 97.8, respirations 18. HEENT: Normocephalic. CHEST: Minimal bilateral rhonchi. No wheezing. HEART: S1 and S2, regular. ABDOMEN: Soft. EXTREMITIES: Trace leg edema. LABORATORY DATA: Hemoglobin and hematocrit 10.8 and 33.1, white count 19.4, platelet count 364,000. SMA-7: Sodium 136, potassium 4.5, chloride 97, CO2 of 25, glucose 364, BUN 21, creatinine 1. Two sets of troponins are negative. ProBNP is elevated at 1930. INR is 1.1, PTT is 38. Admitting chest x-ray revealed cardiomegaly with mild CHF, bilateral lower lobe haziness noted. Today's chest x-ray revealed similar picture. EKG revealed sinus rhythm at the rate of 98, left bundle-branch block, slightly prolonged QT interval, possible left atrial enlargement. This left bundle is an old finding from the last admission in 03/2018. ASSESSMENT: 1. Exacerbation of bronchial asthma. 2. Left bundle-branch block. The patient has a history of coronary artery disease with percutaneous coronary intervention . Left bundle-branch block on electrocardiogram is an old finding, and cardiac enzymes are negative. 3. Uncontrolled diabetes mellitus. 4. Diabetic retinopathy. 5. Mild anemia. 6. Rule out underlying diastolic heart failure. RECOMMENDATIONS: Continue hydralazine 25 mg daily, aspirin 81 mg once a day. Continue IV Rocephin and IV Zithromax. Continue Cozaar 100 mg once a day, Crestor 20 mg once a day, subcutaneous heparin 5000 units every 8 hours, Lasix 40 mg intravenously twice a day, and Zebeta 5 mg twice a day. I would review the echocardiography study performed today. Scott Villegas MD
[2018-09-08] MEDS: MethylPREDNISolone 40 mg Vial IVP SCH ×3 (05:02→21:01)
[2018-09-08 07:23] LABS: BASO % 0.1 % (0.0-2.0); HEMOGLOBIN 10.4 g/dL (11.0-16.0); LYMPH % 5.6 % (20.0-40.0); MEAN CORPUSCULAR HEMOGLOBIN 26.4 pg (27.0-31.0); MEAN CORPUSCULAR HGB CONC 33.4 g/dL (33.0-37.0); MEAN PLATELET VOLUME 8.5 fL (7.2-11.7); MONO # 0.3 K/uL (0.0-0.8); MONO % 1.7 % (0.0-10.0); NEUT # 17.1 K/uL (1.8-7.0); NEUT % 92.6 % (50.0-75.0); NRBC % 0.1 % (0.0-2.0); PLATELET COUNT 394 K/uL (130-400); RBC 3.93 Mil/uL (3.80-5.20); RED CELL DISTRIBUTION WIDTH 15.7 % (11.5-14.5); WHITE BLOOD COUNT 18.5 K/uL (4.8-10.8)
[2018-09-08 07:59] LABS: ALB/GLOB RATIO 1.4 (1.0-2.1); ALBUMIN 4.1 g/dL (3.5-5.0); ALT/SGPT 30 U/L (9-52); AST/SGOT 27 U/L (14-36); BLOOD UREA NITROGEN 32 mg/dL (7-17); CALCIUM 9.4 mg/dl (8.6-10.4); GFR NON-AFRICAN AMERICAN 51
[2018-09-08] MEDS: (Novolin 70/30) NPH/Regular 70/30 Units/ml 10 ml vial SC SCH ×2 (08:02→18:02)
[2018-09-08] MEDS: (Novolog) Insulin Aspart, Recombinant 100 u/ml 10 ml vial SC SCH ×4 (08:05→22:07)
[2018-09-08] MEDS: guaiFENesin 100 mg/5 ml Syrup UD PO PRN ×2 (08:06→18:10)
[2018-09-08] MEDS: Fluticasone-Vilanterol 100/25mcg Diskus INH SCH (08:09)
[2018-09-08 08:50] LABS: LYMPHOCYTE 6 % (20-40); MONOCYTE 1 % (0-10); PLATELET ESTIMATE NORMAL (NORMAL); TOTAL CELLS COUNTED 100
[2018-09-08 08:51] LABS: ANISOCYTOSIS SLIGHT; HYPOCHROMIC SLIGHT; NEUTROPHIL 93 % (50-75); OVALOCYTES SLIGHT; POIKILOCYTOSIS SLIGHT
[2018-09-08] MEDS: Potassium Chloride 10 mEq ER Tab PO SCH (09:14)
--- NOTE | 2018-09-08 14:19 | CP.PCM.PN ---
<Michelle Crawley Y - Last Filed: 09/08/18 16:31> Subjective - Date & Time of Evaluation Date of Evaluation: 09/08/18 Time of Evaluation: 15:00 - Subjective Subjective: PGY-1 Medicine Progress note for Dr. Massey covering Dr. Reyna Patient was seen and examined at bedside in no acute distress. Nurse reports refusal of multiple medications overnight as patient was extremely disconcerted by how many times her sleep was interrupted in the night. Patient also endorsed lack of sleep and annoyance at her overnight visitors. She states her breathing has improved at rest, but minimal exertion has her short of breath despite being compliant with breathing treatments and supplemental oxygen. Her swelling has gone down, but she is still unable to complete full sentences without getting dysnpic. Denies headache, dizziness, palpitations, abdominal pain, numbness, tingling, nausea, vomiting. Objective - Vital Signs/Intake and Output Vital Signs (last 24 hours): Temp Pulse Resp BP Pulse Ox 98.8 F 98 H 20 160/74 H 96 09/08/18 07:00 09/08/18 07:00 09/08/18 07:00 09/08/18 09:15 09/08/18 07:00 Intake and Output: 09/08/18 09/08/18 06:59 18:59 Intake Total 930 Balance 930 - Medications Medications: Current Medications Albuterol/Ipratropium (Duoneb 3 Mg/0.5 Mg (3 Ml) Ud) 3 ml INH RQ6 [facility] Last Admin: 09/08/18 13:05 Dose: Not Given Aspirin (Aspirin Chewable) 81 mg PO DAILY [facility] Last Admin: 09/08/18 09:14 Dose: 81 mg Bisoprolol Fumarate (Zebeta) 5 mg PO BID [facility] Last Admin: 09/08/18 09:18 Dose: 5 mg Dextrose (Dextrose 50% Inj) 0 ml IV STAT PRN; Protocol PRN Reason: Hypoglycemia Protocol Dextrose (Glutose 15) 0 gm PO ONCE PRN; Protocol PRN Reason: Hypoglycemia Protocol Famotidine (Pepcid) 20 mg PO DAILY [facility] Last Admin: 09/08/18 09:14 Dose: 20 mg Fluticasone/Vilanterol (Breo Ellipta 100-25 Mcg Inh) 1 puff INH RQD [facility] Last Admin: 09/08/18 08:09 Dose: 1 puff Furosemide (Lasix) 40 mg IVP DAILY [facility] Glucagon (Glucagen Diagnostic Kit) 0 mg IM STAT PRN; Protocol PRN Reason: Hypoglycemia Protocol Guaifenesin (Robitussin) 100 mg PO Q6 PRN PRN Reason: Cough Last Admin: 09/08/18 08:06 Dose: 100 mg Heparin Sodium (Porcine) (Heparin) 5,000 units SC Q12 [facility] Hydralazine HCl (Apresoline) 25 mg PO DAILY [facility] Last Admin: 09/08/18 09:18 Dose: 25 mg Azithromycin 500 mg/ Sodium (Chloride) 250 mls @ 250 mls/hr IVPB Q24H [facility]; Protocol Last Admin: 09/07/18 16:17 Dose: 250 mls/hr Ceftriaxone Sodium 1 gm/ (Sodium Chloride) 100 mls @ 100 mls/hr IVPB Q12H [facility]; Protocol Last Admin: 09/08/18 05:04 Dose: 100 mls/hr Dextrose (Dextrose 5% In Water 1000 Ml) 1,000 mls @ 0 mls/hr IV .Q0M PRN; Protocol PRN Reason: Hypoglycemia Protocol Insulin Aspart (Novolog) 0 unit SC ACHS [facility]; Protocol Last Admin: 09/08/18 11:51 Dose: 10 units Insulin Human Isoph/Insulin Regular (Novolin 70/30 (70/30 Units/Ml) 10 Ml) 40 units SC BIDCC [facility] Last Admin: 09/08/18 08:02 Dose: 40 units Losartan Potassium (Cozaar) 100 mg PO DAILY [facility] Last Admin: 09/08/18 09:14 Dose: 100 mg Metformin HCl (Glucophage) 1,000 mg PO DAILY [facility] Last Admin: 09/08/18 09:14 Dose: 1,000 mg Methylprednisolone (Solu-Medrol) 40 mg IVP Q12 [facility] Potassium Chloride (Klor-Con 10) 10 meq PO DAILY [facility] Last Admin: 09/08/18 09:14 Dose: 10 meq Rosuvastatin Calcium (Crestor) 20 mg PO HS [facility] Last Admin: 09/07/18 21:04 Dose: 20 mg - Labs Labs: 09/08/18 07:13 09/08/18 07:13 PT 12.0 SECONDS (9.7-12.2) 09/06/18 12:55 INR 1.1 09/06/18 12:55 APTT 34 SECONDS (21-34) 09/07/18 06:58 - Constitutional Appears: No Acute Distress, Agitated, Chronically Ill - Head Exam Head Exam: ATRAUMATIC, NORMOCEPHALIC - Eye Exam Eye Exam: Normal appearance Additional comments: glasses - ENT Exam ENT Exam: Mucous Membranes Moist - Respiratory Exam Respiratory Exam: Decreased Breath Sounds, Rales, Wheezes. absent: Accessory Muscle Use Additional comments: 3L O2 via NC - Cardiovascular Exam Cardiovascular Exam: REGULAR RHYTHM, +S1, +S2 - GI/Abdominal Exam GI & Abdominal Exam: Soft, Normal Bowel Sounds. absent: Tenderness Additional comments: morbidly obese - Extremities Exam Extremities Exam: Normal Capillary Refill, Pedal Edema Additional comments: 1+ pitting edema in bilateral LE IV access in R hand - Neurological Exam Neurological Exam: Alert, Awake, CN II-XII Intact, Normal Gait, Oriented x3 - Psychiatric Exam Psychiatric exam: Anxious, Normal Mood - Skin Skin Exam: Dry, Intact, Normal Color, Warm Assessment and Plan - Assessment and Plan (Free Text) Assessment: 58yo F with PMHx CHF, COPD, DM, HTN, HLD, CAD s/p 3 stents admitted for CHF vs COPD exacerbation. Plan: Community Acquired Pneumonia * CXR (09/06): bilateral infiltrates * repeat CXR (09/07): pending read * Azithromycin 500mg IV daily (started 09/06) * Rocephin 1 gram IV q12 (started 09/06) * Duonebs rQ6 * Solu-Medrol 40 IVP q12 * Breo-Ellipta 1 puff INH daily * Robitussin 100mg po q6 prn for cough CHF exacerbation * Lasix 40mg IVP given in ED * Lasix 40mg IVP daily * Monitor I&Os * Hydralazine 25mg po daily * Cozaar 100mg po daily * Bisoprolol 5mg PO BID Hypertension * Hydralazine 25mg po daily * Cozaar 100mg po daily * Lasix 40mg IV daily * Klor-con 10meq PO daily * Bisoprolol 5mg PO BID Lipid Disorder * Crestor 20mg PO HS DMII * Metformin 500mg po tid * ISS High * Novolin 70/30 30 u sc bid * Januvia 100mg po daily * Accuchecks QAC and HS History of Coronary Artery Disease * f/u cardiology consult, Dr. Villegas * Echocardiogram: normal LV systolic function, borderline dilated LA, mild TR, mild MR * ROMIs neg x3 * ASA 81mg po daily * Bisoprolol 5mg PO BID * Cozaar 100mg po daily * Crestor 20mg POqHS * Lasix 20mg IVP daily * Klor-con 10meq PO daily Prophylaxis * ASA 81 po daily * Lovenox 30mg SC daily * Pepcid 20mg po daily * HHD - low carb d/w Dr. Shilpa Crawley PGY-1 <Carlos Massey H - Last Filed: 09/08/18 18:16> Objective - Vital Signs/Intake and Output Vital Signs (last 24 hours): Temp Pulse Resp BP Pulse Ox 98.8 F 96 H 20 176/73 H 96 09/08/18 07:00 09/08/18 18:06 09/08/18 07:00 09/08/18 18:06 09/08/18 07:00 Intake and Output: 09/08/18 09/08/18 06:59 18:59 Intake Total 930 600 Balance 930 600 - Medications Medications: Current Medications Albuterol/Ipratropium (Duoneb 3 Mg/0.5 Mg (3 Ml) Ud) 3 ml INH RQ6 [facility] Last Admin: 09/08/18 13:05 Dose: Not Given Aspirin (Aspirin Chewable) 81 mg PO DAILY [facility] Last Admin: 09/08/18 09:14 Dose: 81 mg Bisoprolol Fumarate (Zebeta) 5 mg PO BID [facility] Last Admin: 09/08/18 18:02 Dose: 5 mg Dextrose (Dextrose 50% Inj) 0 ml IV STAT PRN; Protocol PRN Reason: Hypoglycemia Protocol Dextrose (Glutose 15) 0 gm PO ONCE PRN; Protocol PRN Reason: Hypoglycemia Protocol Enoxaparin Sodium (Lovenox) 30 mg SC DAILY [facility] Famotidine (Pepcid) 20 mg PO DAILY [facility] Last Admin: 09/08/18 09:14 Dose: 20 mg Fluticasone/Vilanterol (Breo Ellipta 100-25 Mcg Inh) 1 puff INH RQD [facility] Last Admin: 09/08/18 08:09 Dose: 1 puff Furosemide (Lasix) 40 mg IVP DAILY [facility] Glucagon (Glucagen Diagnostic Kit) 0 mg IM STAT PRN; Protocol PRN Reason: Hypoglycemia Protocol Guaifenesin (Robitussin) 100 mg PO Q6 PRN PRN Reason: Cough Last Admin: 09/08/18 18:10 Dose: 100 mg Hydralazine HCl (Apresoline) 25 mg PO DAILY [facility] Last Admin: 09/08/18 09:18 Dose: 25 mg Azithromycin 500 mg/ Sodium (Chloride) 250 mls @ 250 mls/hr IVPB Q24H [facility]; Protocol Last Admin: 09/08/18 17:25 Dose: 250 mls/hr Ceftriaxone Sodium 1 gm/ (Sodium Chloride) 100 mls @ 100 mls/hr IVPB Q12H [facility]; Protocol Last Admin: 09/08/18 17:24 Dose: 100 mls/hr Dextrose (Dextrose 5% In Water 1000 Ml) 1,000 mls @ 0 mls/hr IV .Q0M PRN; Protocol PRN Reason: Hypoglycemia Protocol Insulin Aspart (Novolog) 0 unit SC ACHS [facility]; Protocol Last Admin: 09/08/18 18:02 Dose: 8 units Insulin Human Isoph/Insulin Regular (Novolin 70/30 (70/30 Units/Ml) 10 Ml) 40 units SC BIDCC [facility] Last Admin: 09/08/18 18:02 Dose: 40 units Losartan Potassium (Cozaar) 100 mg PO DAILY [facility] Last Admin: 09/08/18 09:14 Dose: 100 mg Metformin HCl (Glucophage) 1,000 mg PO DAILY [facility] Last Admin: 09/08/18 09:14 Dose: 1,000 mg Methylprednisolone (Solu-Medrol) 40 mg IVP Q12 [facility] Potassium Chloride (Klor-Con 10) 10 meq PO DAILY [facility] Last Admin: 09/08/18 09:14 Dose: 10 meq Rosuvastatin Calcium (Crestor) 20 mg PO HS [facility] Last Admin: 09/07/18 21:04 Dose: 20 mg - Labs Labs: 09/08/18 07:13 09/08/18 07:13 PT 12.0 SECONDS (9.7-12.2) 09/06/18 12:55 INR 1.1 09/06/18 12:55 APTT 34 SECONDS (21-34) 09/07/18 06:58 Attending/Attestation - Attestation I have personally seen and examined this patient.: Yes I have fully participated in the care of the patient.: Yes I have reviewed all pertinent clinical information, including history, physical exam and plan: Yes Notes (Text): 09/08/18 18:14 Medical attending: Patient was seen and examined by me with the director of graduate medical education The patient was walking in her room as we came in and appeared well. However she then sat down and began to have anxiety while talking to us Her breathing was well overnight and so we have decreased the IV lasix as well as decreased the IV solumedrol We reviewed the lab work with the patient She is anxious to see her primary physician when he returns this week Carlos Massey
[2018-09-08] MEDS: Azithromycin 500 MG in Sodium Chloride 0.9% 250 ML IVPB SCH (17:25)
--- NOTE | 2018-09-08 17:42 | PN ---
DATE: 09/08/2018 SUBJECTIVE: The patient is still experiencing shortness of breath and productive cough. She denies any retrosternal chest pain. PHYSICAL EXAMINATION: VITAL SIGNS: Blood pressure 163/77, heart rate 98, temperature 98.8, and respirations 20. HEENT: Normocephalic. CHEST: Bilateral scattered rhonchi. No wheezing. HEART: S1 and S2 regular. ABDOMEN: Soft. EXTREMITIES: Trace leg edema. LABORATORY DATA: Today's hemoglobin and hematocrit 10.4 and 31, white count 18.5, and platelet count 394,000. SMA-7: Sodium 134, potassium 4.4, chloride 97, CO2 of 25, glucose 388, BUN 32, and creatinine 1.1. Echocardiographic study revealed normal left ventricular systolic function, mild mitral insufficiency, and mild tricuspid insufficiency. ASSESSMENT: 1. History of coronary artery disease. 2. Pneumonia. 3. Mild congestive heart failure, most likely diastolic. 4. Uncontrolled diabetes mellitus. 5. Hypertension. RECOMMENDATIONS: Continue hydralazine 25 mg p.o. once a day, aspirin 81 mg once a day, Zithromax 500 mg intravenously daily, Rocephin at 1 g intravenously every 12 hours, Cozaar at 100 mg once a day, Crestor 20 mg once a day, discontinue subcutaneous heparin and start Lovenox at 30 mg once a day, continue Lasix 40 mg intravenously once a day, Solu-Medrol 40 mg intravenously every 12 hours, and Zebeta 5 mg twice a day. Discontinue telemetry as the patient is being very annoyed with the telemetry device. Scott Villegas MD
--- NOTE | 2018-09-08 22:54 | CARD ---
APPROVED REPORT Date of service: 09/06/2018 EKG Measurement Heart [id number] <Conclusion> Normal sinus rhythm Possible Left atrial enlargement Left axis deviation Septal infarct, age undetermined T wave abnormality, consider lateral ischemia Prolonged QT Abnormal ECG
[2018-09-09] MEDS: Albuterol-Ipratrop 3 mg / 0.5 (3 ml) UD INH SCH ×3 (01:13→13:35)
[2018-09-09] MEDS ORDERED: (Novolog) Insulin Aspart, Recombinant 100 u/ml 10 ml vial SC ONE (02:10)
[2018-09-09] MEDS: (Novolog) Insulin Aspart, Recombinant 100 u/ml 10 ml vial SC SCH ×4 (06:32→21:45)
[2018-09-09 07:21] LABS: BASO % 0.2 % (0.0-2.0); HEMOGLOBIN 10.2 g/dL (11.0-16.0); LYMPH % 5.1 % (20.0-40.0); MEAN CELL VOLUME 79.4 fL (81.0-99.0); MEAN CORPUSCULAR HEMOGLOBIN 25.8 pg (27.0-31.0); MEAN CORPUSCULAR HGB CONC 32.6 g/dL (33.0-37.0); MEAN PLATELET VOLUME 8.8 fL (7.2-11.7); MONO # 0.6 K/uL (0.0-0.8); MONO % 3.2 % (0.0-10.0); NEUT # 18.1 K/uL (1.8-7.0); NEUT % 91.5 % (50.0-75.0); PLATELET COUNT 390 K/uL (130-400); RBC 3.95 Mil/uL (3.80-5.20); RED CELL DISTRIBUTION WIDTH 15.5 % (11.5-14.5); WHITE BLOOD COUNT 19.8 K/uL (4.8-10.8)
[2018-09-09] MEDS: Fluticasone-Vilanterol 100/25mcg Diskus INH SCH (07:40)
[2018-09-09 08:19] LABS: ALB/GLOB RATIO 1.3 (1.0-2.1); ALBUMIN 3.8 g/dL (3.5-5.0); ALT/SGPT 21 U/L (9-52); AST/SGOT 24 U/L (14-36); BLOOD UREA NITROGEN 39 mg/dL (7-17); CALCIUM 9.1 mg/dl (8.6-10.4); GFR NON-AFRICAN AMERICAN 51
--- NOTE | 2018-09-09 09:09 | CP.PCM.PN ---
<Alex Turner - Last Filed: 09/09/18 16:21> Subjective - Date & Time of Evaluation Date of Evaluation: 09/09/18 Time of Evaluation: 09:09 - Subjective Subjective: HOSPITALIST SERVICE Pt s/e at bedside, pt would like to receive her antibiotics on a more pleasing schedule to her. Pt is agreeable to take an additional Lasix dose as well. Denies CP SOB FC NV Objective - Vital Signs/Intake and Output Vital Signs (last 24 hours): Temp Pulse Resp BP Pulse Ox 97.9 F 88 20 169/72 H 99 09/09/18 00:10 09/09/18 00:10 09/09/18 00:10 09/09/18 00:10 09/09/18 00:10 Intake and Output: 09/09/18 09/09/18 06:59 18:59 Intake Total 830 Balance 830 - Medications Medications: Current Medications Albuterol/Ipratropium (Duoneb 3 Mg/0.5 Mg (3 Ml) Ud) 3 ml INH RQ6 [facility] Last Admin: 09/09/18 01:13 Dose: 3 ml Aspirin (Aspirin Chewable) 81 mg PO DAILY [facility] Last Admin: 09/08/18 09:14 Dose: 81 mg Bisoprolol Fumarate (Zebeta) 5 mg PO BID [facility] Last Admin: 09/08/18 18:02 Dose: 5 mg Dextrose (Dextrose 50% Inj) 0 ml IV STAT PRN; Protocol PRN Reason: Hypoglycemia Protocol Dextrose (Glutose 15) 0 gm PO ONCE PRN; Protocol PRN Reason: Hypoglycemia Protocol Enoxaparin Sodium (Lovenox) 30 mg SC DAILY [facility] Famotidine (Pepcid) 20 mg PO DAILY [facility] Last Admin: 09/08/18 09:14 Dose: 20 mg Fluticasone/Vilanterol (Breo Ellipta 100-25 Mcg Inh) 1 puff INH RQD [facility] Last Admin: 09/08/18 08:09 Dose: 1 puff Furosemide (Lasix) 40 mg IVP DAILY [facility] Glucagon (Glucagen Diagnostic Kit) 0 mg IM STAT PRN; Protocol PRN Reason: Hypoglycemia Protocol Guaifenesin (Robitussin) 100 mg PO Q6 PRN PRN Reason: Cough Last Admin: 09/08/18 18:10 Dose: 100 mg Hydralazine HCl (Apresoline) 25 mg PO DAILY [facility] Last Admin: 09/08/18 09:18 Dose: 25 mg Dextrose (Dextrose 5% In Water 1000 Ml) 1,000 mls @ 0 mls/hr IV .Q0M PRN; Protocol PRN Reason: Hypoglycemia Protocol Azithromycin 500 mg/ Sodium (Chloride) 250 mls @ 250 mls/hr IVPB Q24H [facility]; Prot ocol Ceftriaxone Sodium 1 gm/ (Sodium Chloride) 100 mls @ 100 mls/hr IVPB Q12H [facility]; Protocol Insulin Aspart (Novolog) 0 unit SC ACHS [facility]; Protocol Last Admin: 09/09/18 06:32 Dose: 10 units Insulin Human Isoph/Insulin Regular (Novolin 70/30 (70/30 Units/Ml) 10 Ml) 40 units SC BIDCC [facility] Last Admin: 09/08/18 18:02 Dose: 40 units Losartan Potassium (Cozaar) 100 mg PO DAILY [facility] Last Admin: 09/08/18 09:14 Dose: 100 mg Metformin HCl (Glucophage) 1,000 mg PO DAILY [facility] Last Admin: 09/08/18 09:14 Dose: 1,000 mg Methylprednisolone (Solu-Medrol) 40 mg IVP Q12 [facility] Last Admin: 09/08/18 21:01 Dose: 40 mg Potassium Chloride (Klor-Con 10) 10 meq PO DAILY [facility] Last Admin: 09/08/18 09:14 Dose: 10 meq Rosuvastatin Calcium (Crestor) 20 mg PO HS [facility] Last Admin: 09/08/18 21:00 Dose: 20 mg - Labs Labs: 09/09/18 07:11 09/09/18 07:11 PT 12.0 SECONDS (9.7-12.2) 09/06/18 12:55 INR 1.1 09/06/18 12:55 APTT 34 SECONDS (21-34) 09/07/18 06:58 - Additional Findings Additional findings: - Constitutional Appears: No Acute Distress, Agitated, Chronically Ill - Head Exam Head Exam: ATRAUMATIC, NORMOCEPHALIC - Eye Exam Eye Exam: Normal appearance Additional comments: glasses - ENT Exam ENT Exam: Mucous Membranes Moist - Respiratory Exam Respiratory Exam: Decreased Breath Sounds, Rales, Wheezes. absent: Accessory Muscle Use Additional comments: 3L O2 via NC - Cardiovascular Exam Cardiovascular Exam: REGULAR RHYTHM, +S1, +S2 - GI/Abdominal Exam GI & Abdominal Exam: Soft, Normal Bowel Sounds. absent: Tenderness Additional comments: morbidly obese - Extremities Exam Extremities Exam: Normal Capillary Refill, Pedal Edema Additional comments: 1+ pitting edema in bilateral LE IV access in R hand - Neurological Exam Neurological Exam: Alert, Awake, CN II-XII Intact, Normal Gait, Oriented x3 - Psychiatric Exam Psychiatric exam: Anxious, Normal Mood - Skin Skin Exam: Dry, Intact, Normal Color, Warm Assessment and Plan - Assessment and Plan (Free Text) Assessment: Assessment and Plan - Assessment and Plan (Free Text) Assessment: 58yo F with PMHx CHF, COPD, DM, HTN, HLD, CAD s/p 3 stents admitted for CHF vs COPD exacerbation. Plan: Community Acquired Pneumonia * CXR (09/06): bilateral infiltrates * repeat CXR (09/07): pending read * Azithromycin 500mg IV daily (started 09/06) * Rocephin 1 gram IV q12 (started 09/06) * Duonebs rQ6 * Solu-Medrol 40 IVP q12 * Breo-Ellipta 1 puff INH daily * Robitussin 100mg po q6 prn for cough CHF exacerbation * Lasix 40mg IVP given in ED * Lasix 40mg IVP daily+ 20 IVP stat this afternoon * Monitor I&Os * Hydralazine 25mg po daily * Cozaar 100mg po daily * Bisoprolol 5mg PO BID Hypertension * Hydralazine 25mg po daily * Cozaar 100mg po daily * Lasix 40mg IV daily * Klor-con 10meq PO daily * Bisoprolol 5mg PO BID Lipid Disorder * Crestor 20mg PO HS DMII * Metformin 500mg po tid * ISS High * Novolin 70/30 30 u sc bid * Januvia 100mg po daily * Accuchecks QAC and HS History of Coronary Artery Disease * f/u cardiology consult, Dr. Villegas * Echocardiogram: normal LV systolic function, borderline dilated LA, mild TR, mild MR * ROMIs neg x3 * ASA 81mg po daily * Bisoprolol 5mg PO BID * Cozaar 100mg po daily * Crestor 20mg POqHS * Lasix 40mg IVP daily * Klor-con 10meq PO daily Prophylaxis * ASA 81 po daily * Lovenox 30mg SC daily * Pepcid 20mg po daily * HHD - low carb d/w Dr. Massey <Carlos Massey H - Last Filed: 09/09/18 17:44> Objective - Vital Signs/Intake and Output Vital Signs (last 24 hours): Temp Pulse Resp BP Pulse Ox 98.1 F 81 20 156/79 H 99 09/09/18 16:00 09/09/18 16:00 09/09/18 16:00 09/09/18 16:24 09/09/18 16:00 Intake and Output: 09/09/18 09/09/18 06:59 18:59 Intake Total 830 Balance 830 - Medications Medications: Current Medications Albuterol/Ipratropium (Duoneb 3 Mg/0.5 Mg (3 Ml) Ud) 3 ml INH RQ6 [facility] Last Admin: 09/09/18 13:35 Dose: 3 ml Aspirin (Aspirin Chewable) 81 mg PO DAILY [facility] Last Admin: 09/09/18 09:21 Dose: 81 mg Bisoprolol Fumarate (Zebeta) 5 mg PO BID [facility] Last Admin: 09/09/18 11:00 Dose: 5 mg Dextrose (Dextrose 50% Inj) 0 ml IV STAT PRN; Protocol PRN Reason: Hypoglycemia Protocol Dextrose (Glutose 15) 0 gm PO ONCE PRN; Protocol PRN Reason: Hypoglycemia Protocol Enoxaparin Sodium (Lovenox) 30 mg SC DAILY [facility] Last Admin: 09/09/18 09:21 Dose: 30 mg Famotidine (Pepcid) 20 mg PO DAILY [facility] Last Admin: 09/09/18 09:21 Dose: 20 mg Fluticasone/Vilanterol (Breo Ellipta 100-25 Mcg Inh) 1 puff INH RQD [facility] Last Admin: 09/09/18 07:40 Dose: 1 puff Furosemide (Lasix) 40 mg IVP DAILY [facility] Last Admin: 09/09/18 09:20 Dose: 40 mg Glucagon (Glucagen Diagnostic Kit) 0 mg IM STAT PRN; Protocol PRN Reason: Hypoglycemia Protocol Guaifenesin (Robitussin) 100 mg PO Q6 PRN PRN Reason: Cough Last Admin: 09/09/18 16:25 Dose: 100 mg Hydralazine HCl (Apresoline) 25 mg PO DAILY [facility] Last Admin: 09/09/18 09:21 Dose: 25 mg Dextrose (Dextrose 5% In Water 1000 Ml) 1,000 mls @ 0 mls/hr IV .Q0M PRN; Protocol PRN Reason: Hypoglycemia Protocol Azithromycin 500 mg/ Sodium (Chloride) 250 mls @ 250 mls/hr IVPB Q24H [facility]; Protocol Last Admin: 09/09/18 16:25 Dose: 250 mls/hr Ceftriaxone Sodium 1 gm/ (Sodium Chloride) 100 mls @ 100 mls/hr IVPB DAILY [facility]; Protocol Insulin Aspart (Novolog) 0 unit SC ACHS [facility]; Protocol Last Admin: 09/09/18 12:40 Dose: 12 unit Insulin Human Isoph/Insulin Regular (Novolin 70/30 (70/30 Units/Ml) 10 Ml) 40 units SC BIDCC [facility] Last Admin: 09/09/18 09:18 Dose: 40 units Losartan Potassium (Cozaar) 100 mg PO DAILY [facility] Last Admin: 09/09/18 09:21 Dose: 100 mg Metformin HCl (Glucophage) 1,000 mg PO DAILY [facility] Last Admin: 09/09/18 09:21 Dose: 1,000 mg Methylprednisolone (Solu-Medrol) 40 mg IVP Q12 [facility] Last Admin: 09/09/18 09:20 Dose: 40 mg Potassium Chloride (Klor-Con 10) 10 meq PO DAILY [facility] Last Admin: 09/09/18 09:21 Dose: 10 meq Rosuvastatin Calcium (Crestor) 20 mg PO HS [facility] Last Admin: 09/08/18 21:00 Dose: 20 mg - Labs Labs: 09/09/18 07:11 09/09/18 07:11 PT 12.0 SECONDS (9.7-12.2) 09/06/18 12:55 INR 1.1 09/06/18 12:55 APTT 34 SECONDS (21-34) 09/07/18 06:58 Attending/Attestation - Attestation I have personally seen and examined this patient.: Yes I have fully participated in the care of the patient.: Yes I have reviewed all pertinent clinical information, including history, physical exam and plan: Yes Notes (Text): 09/09/18 17:40 Medical attending: Patient was not in any acute distress when I came and saw her with the medical driver. I reviewed the above and agree with the above note by the resident. She had a CXRAY done yesterday and it did show some venous congestion - yesterday she asked repeatedly that her lasix be decreased and so we did. However I reviewed with her the CXRAY and she is agreeable to us giving a little more additional lasix to her today. Also she wanted the specific times when her rocephin and azithromycin would be given Solumedrol was decreased to 40 IV BID. I explained to the patient that tomorrow her primary phsician would be returning to see her. thank you Carlos Massey
[2018-09-09] MEDS: (Novolin 70/30) NPH/Regular 70/30 Units/ml 10 ml vial SC SCH ×2 (09:18→18:06)
[2018-09-09] MEDS: guaiFENesin 100 mg/5 ml Syrup UD PO PRN ×2 (09:19→16:25)
[2018-09-09] MEDS: MethylPREDNISolone 40 mg Vial IVP SCH ×2 (09:20→21:46)
[2018-09-09] MEDS: Enoxaparin 30 mg Syringe SC SCH (09:21)
[2018-09-09] MEDS: Potassium Chloride 10 mEq ER Tab PO SCH (09:21)
[2018-09-09 09:37] LABS: ANISOCYTOSIS SLIGHT; HYPOCHROMIC SLIGHT; LYMPHOCYTE 7 % (20-40); MONOCYTE 4 % (0-10); NEUTROPHIL 89 % (50-75); PLATELET ESTIMATE NORMAL (NORMAL); POIKILOCYTOSIS SLIGHT; TOTAL CELLS COUNTED 100
[2018-09-09 09:38] LABS: OVALOCYTES SLIGHT
[2018-09-09] MEDS: Azithromycin 500 MG in Sodium Chloride 0.9% 250 ML IVPB SCH (16:25)
--- NOTE | 2018-09-09 16:36 | PQF ---
PROVIDER RESPONSE TEXT: Acute on Chronic Diastolic CHF REVIEWER QUERY TEXT: CHF Acuity and Type Unspecified Diastolic Congestive Heart Failure is documented in the Medical Record. Please document t he type and acuity (includes probable or suspected) Such as: The patient's Clinical Indicators include: "58F PMHx of CHF presenting with SOB, dyspnea at rest and cough since yesterday.Pt has been persistne tly SOB for many years but usually is able to tolerate moderate exertion.Yesterday she states she was cleaning her bathroom, used a spray which induced her to cough.Her cough did not subside after using her home nebulizer. Pt then went to try to sleep but was unable to lie flat". Respiratory: Rales (some rales in bases), No Rhonchi, No Wheezing, Other (tachypneic) Extremity: Normal ROM, Other (bilateral lower extremity edema) ECHO: Normal LV systolic function. Borderline dilated LA. Mild MR. Mild TR. B-Type Natriuretic Peptide: 1930. Please consider verify in order to document the acuity of the CHF, considering the clinical indicator s. Query created by: Emerson Arriola on 09/09/2018 2:57 PM Electronically signed by: Carlos Massey DO 09/09/2018 4:33 PM
--- NOTE | 2018-09-09 20:30 | PN ---
DATE: 09/09/2018 SUBJECTIVE: The patient is still experiencing productive cough and shortness of breath. PHYSICAL EXAMINATION: VITAL SIGNS: Blood pressure 156/79, heart rate 81, temperature 98.1, and respirations 20. HEENT: Normocephalic. CHEST: Bilateral rhonchi. HEART: S1 and S2 regular. ABDOMEN: Soft. EXTREMITIES: Trace leg edema. LABORATORY DATA: Hemoglobin and hematocrit 10.2 and 31.9, white count 19.8, and platelet count 390,000. Today's SMA-7: Sodium 132, potassium 4.2, chloride 95, CO2 of 26, glucose 454, BUN 39, and creatinine 1.1. Blood culture is negative after 48 hours. ASSESSMENT: 1. Pneumonia. 2. Diastolic heart failure. 3. Coronary artery disease with history of percutaneous coronary intervention three years ago. 4. Uncontrolled diabetes mellitus. 5. Hypertension. RECOMMENDATIONS: Continue hydralazine 25 mg once a day, aspirin 81 mg once a day, continue IV Rocephin and IV Zithromax. Continue Crestor 20 mg once a day, metformin at 1 g orally daily, Klor-Con 10 mEq once a day, Lasix 40 mg intravenously once a day, Lovenox at 30 mg subcutaneously once a day, Solu-Medrol 40 mg intravenously every 12 hours, and Zebeta 5 mg p.o. twice a day. Scott Villegas MD
[2018-09-10] MEDS: Albuterol-Ipratrop 3 mg / 0.5 (3 ml) UD INH SCH ×4 (01:25→20:28)
[2018-09-10] MEDS ORDERED: (Novolog) Insulin Aspart, Recombinant 100 u/ml 10 ml vial SC ONE (02:05)
[2018-09-10] MEDS: Fluticasone-Vilanterol 100/25mcg Diskus INH SCH (07:30)
[2018-09-10 07:46] LABS: BASO % 0.2 % (0.0-2.0); HEMOGLOBIN 10.3 g/dL (11.0-16.0); LYMPH % 5.5 % (20.0-40.0); MEAN CELL VOLUME 78.6 fL (81.0-99.0); MEAN CORPUSCULAR HEMOGLOBIN 26.5 pg (27.0-31.0); MEAN CORPUSCULAR HGB CONC 33.7 g/dL (33.0-37.0); MEAN PLATELET VOLUME 8.6 fL (7.2-11.7); MONO # 0.9 K/uL (0.0-0.8); NEUT # 15.5 K/uL (1.8-7.0); NEUT % 89.3 % (50.0-75.0); PLATELET COUNT 418 K/uL (130-400); RBC 3.88 Mil/uL (3.80-5.20); RED CELL DISTRIBUTION WIDTH 15.5 % (11.5-14.5); WHITE BLOOD COUNT 17.4 K/uL (4.8-10.8)
[2018-09-10 07:55] LABS: ALB/GLOB RATIO 1.3 (1.0-2.1); ALBUMIN 3.6 g/dL (3.5-5.0); ALT/SGPT 20 U/L (9-52); AST/SGOT 25 U/L (14-36); BLOOD UREA NITROGEN 35 mg/dL (7-17); CALCIUM 8.9 mg/dl (8.6-10.4); GFR NON-AFRICAN AMERICAN 51
[2018-09-10] MEDS: (Novolog) Insulin Aspart, Recombinant 100 u/ml 10 ml vial SC SCH ×4 (08:23→21:36)
[2018-09-10] MEDS: (Novolin 70/30) NPH/Regular 70/30 Units/ml 10 ml vial SC SCH ×2 (08:24→17:38)
[2018-09-10 09:21] LABS: BANDS 2 % (0-2); LYMPHOCYTE 4 % (20-40); TOTAL CELLS COUNTED 100
[2018-09-10 09:22] LABS: ANISOCYTOSIS SLIGHT; HYPOCHROMIC SLIGHT; MONOCYTE 4 % (0-10); NEUTROPHIL 90 % (50-75); PLATELET ESTIMATE NORMAL (NORMAL); POIKILOCYTOSIS SLIGHT
[2018-09-10 09:23] LABS: TARGET CELLS SLIGHT; TEARDROP CELLS SLIGHT
[2018-09-10] MEDS: Potassium Chloride 10 mEq ER Tab PO SCH (09:38)
[2018-09-10] MEDS: guaiFENesin 100 mg/5 ml Syrup UD PO PRN (09:38)
[2018-09-10] MEDS: MethylPREDNISolone 40 mg Vial IVP SCH ×2 (09:39→21:37)
[2018-09-10] MEDS: Enoxaparin 30 mg Syringe SC SCH (09:41)
[2018-09-10] MEDS: Azithromycin 500 MG in Sodium Chloride 0.9% 250 ML IVPB SCH (17:39)
[2018-09-11] MEDS ORDERED: (Novolog) Insulin Aspart, Recombinant 100 u/ml 10 ml vial SC ONE (02:09)
[2018-09-11] MEDS: Albuterol-Ipratrop 3 mg / 0.5 (3 ml) UD INH SCH ×4 (02:16→20:41)
[2018-09-11 07:15] LABS: BASO % 0.1 % (0.0-2.0); HEMOGLOBIN 10.6 g/dL (11.0-16.0); LYMPH # 1.1 K/uL (1.0-4.3); MEAN CELL VOLUME 79.3 fL (81.0-99.0); MEAN CORPUSCULAR HEMOGLOBIN 25.9 pg (27.0-31.0); MEAN CORPUSCULAR HGB CONC 32.6 g/dL (33.0-37.0); MEAN PLATELET VOLUME 8.8 fL (7.2-11.7); MONO % 5.4 % (0.0-10.0); NEUT # 15.9 K/uL (1.8-7.0); NEUT % 88.5 % (50.0-75.0); PLATELET COUNT 380 K/uL (130-400); RBC 4.11 Mil/uL (3.80-5.20)
[2018-09-11] MEDS: (Novolog) Insulin Aspart, Recombinant 100 u/ml 10 ml vial SC SCH ×4 (07:44→21:26)
[2018-09-11] MEDS: (Novolin 70/30) NPH/Regular 70/30 Units/ml 10 ml vial SC SCH ×2 (07:45→17:17)
[2018-09-11] MEDS: guaiFENesin 100 mg/5 ml Syrup UD PO PRN (08:11)
[2018-09-11 08:28] LABS: ALB/GLOB RATIO 1.3 (1.0-2.1); ALBUMIN 3.6 g/dL (3.5-5.0); ALT/SGPT 20 U/L (9-52); AST/SGOT 16 U/L (14-36); BLOOD UREA NITROGEN 38 mg/dL (7-17); CALCIUM 8.4 mg/dl (8.6-10.4); GFR NON-AFRICAN AMERICAN 51
[2018-09-11] MEDS: Fluticasone-Vilanterol 100/25mcg Diskus INH SCH (08:28)
[2018-09-11 09:06] LABS: LYMPHOCYTE 9 % (20-40); MONOCYTE 6 % (0-10); NEUTROPHIL 85 % (50-75); PLATELET ESTIMATE NORMAL (NORMAL); TOTAL CELLS COUNTED 100
[2018-09-11 09:07] LABS: ANISOCYTOSIS SLIGHT; HYPOCHROMIC MODERATE; MICROCYTOSIS SLIGHT; OVALOCYTES SLIGHT; POIKILOCYTOSIS SLIGHT; POLYCHROMIC SLIGHT
[2018-09-11 09:09] LABS: LARGE PLATELETS PRESENT; SCHISTOCYTES SLIGHT
[2018-09-11] MEDS: MethylPREDNISolone 40 mg Vial IVP SCH ×2 (10:04→21:00)
[2018-09-11] MEDS: Potassium Chloride 10 mEq ER Tab PO SCH (10:05)
[2018-09-11] MEDS: Enoxaparin 30 mg Syringe SC SCH (10:06)
--- NOTE | 2018-09-11 12:58 | PN ---
DATE: 09/10/2018 SUBJECTIVE: The visit was done on 09/10/2018. She is still having exertional shortness of breath and cough. PHYSICAL EXAMINATION: VITAL SIGNS: Blood pressure was 183/84, temperature 97.8, respiratory rate 20, and pulse 81. HEENT: Normal-appearing mucosa. NECK: Supple. No JVD. No carotid bruit. No lymph node. No thyromegaly. CHEST AND LUNGS: Bilateral symmetrical expansion. Decreased air entry both lower lung landers. CARDIOVASCULAR SYSTEM: PMI not localized. S1, S2. No additional sounds. ABDOMEN: Normoactive bowel sounds. No tenderness. No organomegaly. No masses. EXTREMITIES: The patient has no cyanosis, no clubbing, but +2 edema in both lower extremities. CENTRAL NERVOUS SYSTEM: Alert, awake, oriented x3. No neurological deficit could be appreciated. ASSESSMENT: 1. Exacerbation of congestive heart failure, both systolic and diastolic, acute on chronic. 2. Clinical pneumonia. 3. History of coronary artery disease. 4. Type 2 diabetes mellitus. 5. Legally blind secondary to diabetic retinopathy. PLAN: We will continue current antibiotics, both Rocephin and azithromycin, and we will lower the steroid to 20 mg every 12 hours. Also increase Lasix to 40 mg twice a day as the patient has significant edema of both lower extremities. Georges Reyna MD
[2018-09-11] MEDS ORDERED: Potassium Chloride 20 mEq ER Tab PO ONE ×2 (14:00→15:15)
--- NOTE | 2018-09-11 16:17 | PN ---
DATE: 09/10/2018 SUBJECTIVE: The patient is experiencing worsening swelling. She is still short of breath. PHYSICAL EXAMINATION: VITAL SIGNS: Blood pressure 153/90, heart rate 88, temperature 98, respirations 20. HEENT: Normocephalic. CHEST: Minimal rhonchi. HEART: S1 and S2 regular. ABDOMEN: Soft. EXTREMITIES: Show 1+ pitting edema. . LABORATORY DATA: Today's hemoglobin and hematocrit are 10.3 and 30.5. White count is 17.4, platelet count 418,000. Today's blood sugar is 331. ASSESSMENT: 1. Exacerbation of chronic obstructive lung disease. 2. Coronary artery disease versus history of in the past. 3. Leukocytosis. 4. Consider right failure. 5. Uncontrolled diabetes mellitus. 6. Hypertension. RECOMMENDATIONS: Continue current hydralazine 25 mg once a day, aspirin 81 mg once a day, IV Rocephin and IV Zithromax. Continue Crestor at 20 mg once a day, Cozaar 100 mg once a day, Lasix was increased to 40 mg twice a day. Continue Klor-Con at 10 mEq once a day, Lovenox 30 mg once a day, Solu-Medrol 40 mg intravenously every 12 hours and Zebeta 5 mg twice a day. We will order humidified nasal O2. Scott Villegas MD
[2018-09-11] MEDS: Azithromycin 500 MG in Sodium Chloride 0.9% 250 ML IVPB SCH (17:44)
[2018-09-12] MEDS: Albuterol-Ipratrop 3 mg / 0.5 (3 ml) UD INH SCH ×4 (01:34→20:02)
--- NOTE | 2018-09-12 02:20 | PN ---
DATE: 09/11/2018 SUBJECTIVE: The patient is still mildly short of breath and experiencing leg swelling. PHYSICAL EXAMINATION: VITAL SIGNS: Blood pressure 164/70, heart rate 80, temperature 98.8, respirations 20. HEENT: Normocephalic. CHEST: Bilateral rhonchi. HEART: S1, S2, regular. EXTREMITIES: 1+ pitting edema. LABORATORY DATA: Today's hemoglobin and hematocrit 10.6 and 32.6, white count 18, platelet count 380,000. Today's SMA-7: Sodium 132, potassium 3.3, chloride 94, CO2 of 28, glucose 461, BUN 38, and creatinine 1.1. ASSESSMENT: 1. Exacerbation of chronic obstructive lung disease. 2. Hypokalemia. 3. History of coronary artery disease, status post percutaneous coronary intervention in the past. RECOMMENDATIONS: Continue hydralazine 25 mg twice a day, aspirin 81 mg once a day, IV Zithromax and IV Rocephin. Continue Cozaar at 100 mg daily, Crestor 20 mg once a day, Lasix 40 mg intravenously twice a day, Solu-Medrol 20 mg intravenously every 12 hours. The patient did receive oral potassium chloride totalling 60 mEq today. Obtain BMP in a.m. Scott Villegas MD
[2018-09-12] MEDS: (Novolin 70/30) NPH/Regular 70/30 Units/ml 10 ml vial SC SCH ×2 (07:41→17:28)
[2018-09-12] MEDS: (Novolog) Insulin Aspart, Recombinant 100 u/ml 10 ml vial SC SCH ×4 (07:42→21:35)
[2018-09-12 08:12] LABS: BASO % 0.1 % (0.0-2.0); HEMOGLOBIN 11.1 g/dL (11.0-16.0); LYMPH # 1.4 K/uL (1.0-4.3); LYMPH % 7.7 % (20.0-40.0); MEAN CELL VOLUME 78.9 fL (81.0-99.0); MEAN CORPUSCULAR HEMOGLOBIN 26.4 pg (27.0-31.0); MEAN CORPUSCULAR HGB CONC 33.5 g/dL (33.0-37.0); MEAN PLATELET VOLUME 8.7 fL (7.2-11.7); MONO # 1.4 K/uL (0.0-0.8); MONO % 7.3 % (0.0-10.0); NEUT # 15.9 K/uL (1.8-7.0); NEUT % 84.9 % (50.0-75.0); PLATELET COUNT 408 K/uL (130-400); RBC 4.19 Mil/uL (3.80-5.20); RED CELL DISTRIBUTION WIDTH 15.3 % (11.5-14.5); WHITE BLOOD COUNT 18.8 K/uL (4.8-10.8)
[2018-09-12] MEDS: Fluticasone-Vilanterol 100/25mcg Diskus INH SCH (08:25)
[2018-09-12 08:52] LABS: ALB/GLOB RATIO 1.4 (1.0-2.1); ALBUMIN 3.4 g/dL (3.5-5.0); CALCIUM 8.7 mg/dl (8.6-10.4)
[2018-09-12] MEDS: MethylPREDNISolone 40 mg Vial IVP SCH ×2 (09:37→21:31)
[2018-09-12] MEDS: Potassium Chloride 10 mEq ER Tab PO SCH (09:37)
[2018-09-12] MEDS: guaiFENesin 100 mg/5 ml Syrup UD PO PRN (09:37)
[2018-09-12] MEDS: Enoxaparin 30 mg Syringe SC SCH (10:07)
[2018-09-12 11:19] LABS: LYMPHOCYTE 9 % (20-40); MONOCYTE 6 % (0-10); NEUTROPHIL 82 % (50-75); REACTIVE LYMPHOCYTES 3 % (0-0); TOTAL CELLS COUNTED 100
[2018-09-12 11:20] LABS: ANISOCYTOSIS SLIGHT; PLATELET ESTIMATE SLIGHTLY INCREASED (NORMAL)
[2018-09-12 11:21] LABS: MICROCYTOSIS SLIGHT
[2018-09-12 11:28] LABS: HYPOCHROMIC SLIGHT
[2018-09-12 11:29] LABS: LARGE PLATELETS PRESENT; OVALOCYTES SLIGHT; POIKILOCYTOSIS SLIGHT; SCHISTOCYTES SLIGHT; TOXIC GRANULATION PRESENT
[2018-09-12] MEDS: Azithromycin 500 MG in Sodium Chloride 0.9% 250 ML IVPB SCH (17:29)
--- NOTE | 2018-09-12 21:32 | PN ---
DATE: 09/11/2018 SUBJECTIVE: The patient was seen on 09/11/2018. She still had exertional shortness of breath and significant edema of both lower extremities. PHYSICAL EXAMINATION: VITAL SIGNS: Blood pressure was 166/83, temperature 97.9, respiratory rate 22 and pulse 81. HEENT: Normal-appearing mucosa of the conjunctivae, oropharynx and nasal membrane mucosa. NECK: Supple. No JVD. No carotid bruit. No lymph node. No thyromegaly. CHEST AND LUNGS: Bilateral symmetrical expansion. Good air exchange. No rales, no rhonchi. CARDIOVASCULAR SYSTEM: PMI not localized. S1 and S2. No additional sounds. ABDOMEN: Normoactive bowel sounds. No tenderness. No organomegaly. No masses. EXTREMITIES: +2 pitting edema of both lower extremities. CENTRAL NERVOUS SYSTEM: Alert, awake, oriented x3. No neurological deficit could be appreciated. ASSESSMENT: 1. Exacerbation of congestive heart failure, both systolic and diastolic, acute on chronic. 2. Clinical pneumonia. 3. Hyperactive airway disease with bronchospasm. 4. Type 2 diabetes mellitus with hyperglycemia. 5. Hypertension. 6. Coronary artery disease. PLAN: Continue current medications. We will decrease the Solu-Medrol and increase hydralazine to 25 mg twice a day. Continue Lasix 40 mg IV every 12 hours and monitor electrolytes. Georges Reyna MD
--- NOTE | 2018-09-12 21:38 | PN ---
DATE: 09/12/2018 SUBJECTIVE: The patient was seen today, 09/12/2018. She is not in any cardiopulmonary distress. She still has bilateral lower extremity edema. PHYSICAL EXAMINATION: VITAL SIGNS: Blood pressure 115/81, temperature 98.1, respiratory rate 20 and pulse 84. HEENT: Normal-appearing mucosa of the conjunctivae. NECK: Supple. No JVD. No carotid bruit. No lymph node. No thyromegaly. CHEST AND LUNGS: Bilateral symmetrical expansion. Good air exchange. No rales. No rhonchi. CARDIOVASCULAR SYSTEM: PMI not localized. S1, S2. No additional sounds. ABDOMEN: Normoactive bowel sounds. No tenderness. No organomegaly. No masses. EXTREMITIES: No cyanosis. No clubbing. No edema. CENTRAL NERVOUS SYSTEM: Alert, awake, oriented x2. No neurological deficit could be appreciated. ASSESSMENT: 1. Exacerbation of congestive heart failure, acute on chronic, both systolic and diastolic. 2. Clinical pneumonia. 3. Type 2 diabetes mellitus with hyperglycemia. 4. Hypertension. PLAN: Continue current medications and taper off steroids. Monitor electrolytes. Continue Lasix 40 mg IV every 12 hours. Georges Reyna MD
--- NOTE | 2018-09-12 22:44 | PN ---
DATE: 09/12/2018 SUBJECTIVE: The patient is still short of breath on minimal exertion. She denies any fever or chills and no retrosternal chest pain. PHYSICAL EXAMINATION: VITAL SIGNS: Blood pressure 159/69, heart rate 68, temperature 98.1, respirations 18. HEENT: Normocephalic. CHEST: Bilateral rhonchi. HEART: S1 and S2, regular. EXTREMITIES: 1+ pitting edema. LABORATORY DATA: SMA-7: Sodium 133, potassium 3.9, chloride 94, CO2 of 33, glucose 461, BUN 36, creatinine 1.2. Today's hemoglobin and hematocrit are 11.1 and 33, white count 18.8, and platelet count 408,000, ASSESSMENT: 1. Exacerbation of bronchial asthma. 2. Coronary artery disease with a history of percutaneous coronary intervention in the past. 3. Uncontrolled diabetes mellitus. 4. Diabetic retinopathy. RECOMMENDATIONS: Continue hydralazine 25 mg twice a day, aspirin 81 mg once a day. Continue IV Rocephin and IV Zithromax. Continue metformin 1 g daily, Klor-Con 20 mEq once a day, Lasix 40 mg intravenous twice a day, subcutaneous Lovenox 30 mg once a day, Solu-Medrol 20 mg intravenously every 2 hours, and Zebeta 5 mg twice a day. Scott Villegas MD
[2018-09-13] MEDS: Albuterol-Ipratrop 3 mg / 0.5 (3 ml) UD INH SCH ×4 (01:20→20:00)
[2018-09-13 06:43] LABS: BASO % 0.1 % (0.0-2.0); HEMOGLOBIN 11.8 g/dL (11.0-16.0); LYMPH # 1.7 K/uL (1.0-4.3); LYMPH % 7.4 % (20.0-40.0); MEAN CELL VOLUME 79.3 fL (81.0-99.0); MEAN CORPUSCULAR HEMOGLOBIN 25.4 pg (27.0-31.0); MEAN CORPUSCULAR HGB CONC 32.1 g/dL (33.0-37.0); MEAN PLATELET VOLUME 8.7 fL (7.2-11.7); MONO # 1.7 K/uL (0.0-0.8); MONO % 7.3 % (0.0-10.0); NEUT # 19.7 K/uL (1.8-7.0); NEUT % 85.2 % (50.0-75.0); PLATELET COUNT 409 K/uL (130-400); RBC 4.63 Mil/uL (3.80-5.20); RED CELL DISTRIBUTION WIDTH 15.1 % (11.5-14.5); WHITE BLOOD COUNT 23.2 K/uL (4.8-10.8)
[2018-09-13 06:49] LABS: ALB/GLOB RATIO 1.5 (1.0-2.1); ALBUMIN 3.6 g/dL (3.5-5.0); ALT/SGPT 24 U/L (9-52); AST/SGOT 28 U/L (14-36); BLOOD UREA NITROGEN 38 mg/dL (7-17); CALCIUM 8.8 mg/dl (8.6-10.4); GFR NON-AFRICAN AMERICAN 51
[2018-09-13] MEDS: (Novolin 70/30) NPH/Regular 70/30 Units/ml 10 ml vial SC SCH ×2 (07:53→18:56)
[2018-09-13] MEDS: (Novolog) Insulin Aspart, Recombinant 100 u/ml 10 ml vial SC SCH ×4 (07:55→22:16)
[2018-09-13] MEDS: Fluticasone-Vilanterol 100/25mcg Diskus INH SCH (08:31)
[2018-09-13 09:46] LABS: BANDS 3 % (0-2); LYMPHOCYTE 9 % (20-40); MONOCYTE 6 % (0-10); NEUTROPHIL 82 % (50-75); PLATELET ESTIMATE SLIGHTLY INCREASED (NORMAL); TOTAL CELLS COUNTED 100
[2018-09-13 09:47] LABS: ANISOCYTOSIS SLIGHT
[2018-09-13] MEDS: Potassium Chloride 10 mEq ER Tab PO SCH (10:00)
[2018-09-13] MEDS: Enoxaparin 30 mg Syringe SC SCH (10:00)
[2018-09-13] MEDS: MethylPREDNISolone 40 mg Vial IVP SCH ×2 (12:06→21:11)
[2018-09-13] MEDS: Azithromycin 500 MG in Sodium Chloride 0.9% 250 ML IVPB SCH (16:43)
[2018-09-13] MEDS: guaiFENesin 100 mg/5 ml Syrup UD PO PRN (19:02)
--- NOTE | 2018-09-13 22:32 | PN ---
DATE: 09/13/2018 SUBJECTIVE: The patient is mildly short of breath, on minimal exertion. PHYSICAL EXAMINATION: VITAL SIGNS: Blood pressure 167/67, heart rate 72, temperature 98.4, respirations 20. HEENT: Normocephalic. CHEST: Minimal rhonchi. HEART: S1 and S2 regular. EXTREMITIES: 1+ pitting edema. LABORATORY DATA: Today's SMA-7: Sodium 133, potassium 3.6, chloride 94, CO2 of 33, glucose 386, BUN 38, creatinine 1.1. Today's hemoglobin and hematocrit 11.8 and 36.7. White count 23.2, platelet count 409,000. ASSESSMENT: 1. Exacerbation of bronchial asthma. 2. Leukocytosis. 3. Uncontrolled diabetes mellitus. 5. Diabetic retinopathy. 6. History of coronary artery disease, status post percutaneous coronary intervention few years ago. RECOMMENDATIONS: Continue hydralazine 25 mg twice a day, IV Zithromax, IV Rocephin. Continue aspirin 81 mg once a day, Lasix 40 mg intravenous twice a day, Klor-Con 20 mEq once a day, subcutaneous Lovenox at 30 mg once a day, Zebeta 5 mg once a day, and Solu-Medrol 20 mg intravenously every 12 hours. Scott Villegas MD
[2018-09-13] MEDS: guaiFENesin DM 100 mg-10 mg/5 ml UD PO SCH (23:59)
--- NOTE | 2018-09-14 00:09 | PN ---
DATE: 09/13/2018 SUBJECTIVE: The patient is seen today, 09/13/2018. She is still having cough and some exertional shortness of breath. PHYSICAL EXAMINATION: VITAL SIGNS: Blood pressure is 120/62, temperature 98.5, respiratory rate 20 and pulse 88. HEENT: Normal-appearing mucosa of the conjunctivae. NECK: Supple. No JVD. No carotid bruit. No lymph node. No thyromegaly. CHEST AND LUNGS: Bilateral symmetrical expansion. Good air exchange. No rales, no rhonchi. CARDIOVASCULAR SYSTEM: PMI not localized. S1, S2. No additional sounds. ABDOMEN: Normoactive bowel sounds. No tenderness. No organomegaly. No masses. EXTREMITIES: No cyanosis, no clubbing, no edema. CENTRAL NERVOUS SYSTEM: Alert, awake, oriented x3. No neurological deficit could be appreciated. ASSESSMENT: 1. [id number] systolic and diastolic heart failure. 2. Type 2 diabetes mellitus. 3. Hypertension. 4. Clinical pneumonia. PLAN: Continue current antibiotics and taper steroids as tolerated and give the patient Robitussin DM and do an Accu-Chek at 3 a.m. in the morning with insulin coverage. Georges Reyna MD
[2018-09-14] MEDS ORDERED: (Novolog) Insulin Aspart, Recombinant 100 u/ml 10 ml vial SC SCH (02:00)
[2018-09-14] MEDS: guaiFENesin DM 100 mg-10 mg/5 ml UD PO SCH ×2 (06:33→13:16)
[2018-09-14] MEDS: (Novolin 70/30) NPH/Regular 70/30 Units/ml 10 ml vial SC SCH ×2 (08:07→17:00)
[2018-09-14] MEDS: (Novolog) Insulin Aspart, Recombinant 100 u/ml 10 ml vial SC SCH ×3 (08:07→17:00)
[2018-09-14] MEDS: Fluticasone-Vilanterol 100/25mcg Diskus INH SCH (08:29)
[2018-09-14] MEDS: Enoxaparin 30 mg Syringe SC SCH (09:17)
[2018-09-14] MEDS: Potassium Chloride 10 mEq ER Tab PO SCH (09:17)
[2018-09-14] MEDS: MethylPREDNISolone 40 mg Vial IVP SCH (09:20)
[2018-09-14] MEDS: guaiFENesin 100 mg/5 ml Syrup UD PO PRN (13:14)
[2018-09-14] MEDS: Azithromycin 500 MG in Sodium Chloride 0.9% 250 ML IVPB SCH ×2 (14:35→17:00)
--- NOTE | 2018-09-14 14:36 | CP.PCM.PN ---
Subjective - Date & Time of Evaluation Date of Evaluation: 09/14/18 Time of Evaluation: 11:20 - Subjective Subjective: patient seen today, sob improved, denies any chest pain ,sob, dizziness a febrile oob ambulating without sob vss - reviewed - stable Objective - Vital Signs/Intake and Output Vital Signs (last 24 hours): Temp Pulse Resp BP Pulse Ox 98.4 F 77 18 160/90 H 99 09/14/18 07:30 09/14/18 07:30 09/14/18 07:30 09/14/18 09:17 09/14/18 07:30 Intake and Output: 09/14/18 09/14/18 06:59 18:59 Intake Total 750 Balance 750 - Medications Medications: Current Medications Aspirin (Aspirin Chewable) 81 mg PO DAILY [facility] Last Admin: 09/14/18 09:16 Dose: 81 mg Bisoprolol Fumarate (Zebeta) 5 mg PO BID [facility] Last Admin: 09/14/18 09:16 Dose: 5 mg Dextrose (Dextrose 50% Inj) 0 ml IV STAT PRN; Protocol PRN Reason: Hypoglycemia Protocol Dextrose (Glutose 15) 0 gm PO ONCE PRN; Protocol PRN Reason: Hypoglycemia Protocol Enoxaparin Sodium (Lovenox) 30 mg SC DAILY [facility] Last Admin: 09/14/18 09:17 Dose: 30 mg Famotidine (Pepcid) 20 mg PO DAILY [facility] Last Admin: 09/14/18 09:16 Dose: 20 mg Fluticasone/Vilanterol (Breo Ellipta 100-25 Mcg Inh) 1 puff INH RQD [facility] Last Admin: 09/14/18 08:29 Dose: 1 puff Furosemide (Lasix) 40 mg IVP BID [facility] Last Admin: 09/14/18 09:17 Dose: 40 mg Glucagon (Glucagen Diagnostic Kit) 0 mg IM STAT PRN; Protocol PRN Reason: Hypoglycemia Protocol Guaifenesin (Robitussin) 100 mg PO Q6 PRN PRN Reason: Cough Last Admin: 09/14/18 13:14 Dose: 100 mg Guaifenesin/Dextromethorphan (Robitussin Dm) 5 ml PO Q6 [facility] Last Admin: 09/14/18 13:16 Dose: Not Given Hydralazine HCl (Apresoline) 25 mg PO BID [facility] Last Admin: 09/14/18 09:16 Dose: 25 mg Azithromycin 500 mg/ Sodium (Chloride) 250 mls @ 250 mls/hr IVPB Q24H [facility]; Protocol Last Admin: 09/13/18 16:43 Dose: 250 mls/hr Ceftriaxone Sodium 1 gm/ (Sodium Chloride) 100 mls @ 100 mls/hr IVPB DAILY [facility]; Protocol Last Admin: 09/14/18 09:15 Dose: 100 mls/hr Insulin Aspart (Novolog) 0 unit SC ACHS [facility]; Protocol Last Admin: 09/14/18 12:27 Dose: 10 unit Insulin Aspart (Novolog) 0 unit SC 0200 [facility]ER; Protocol Last Admin: 09/14/18 02:46 Dose: 4 units Insulin Human Isoph/Insulin Regular (Novolin 70/30 (70/30 Units/Ml) 10 Ml) 40 units SC BIDCC [facility] Last Admin: 09/14/18 08:07 Dose: 40 units Losartan Potassium (Cozaar) 100 mg PO DAILY [facility] Last Admin: 09/14/18 09:16 Dose: 100 mg Metformin HCl (Glucophage) 1,000 mg PO DAILY [facility] Last Admin: 09/14/18 09:17 Dose: 1,000 mg Methylprednisolone (Solu-Medrol) 20 mg IVP Q12H [facility] Last Admin: 09/14/18 09:20 Dose: 20 mg Potassium Chloride (Klor-Con 10) 20 meq PO DAILY [facility] Last Admin: 09/14/18 09:17 Dose: 20 meq Rosuvastatin Calcium (Crestor) 20 mg PO HS [facility] Last Admin: 09/13/18 21:11 Dose: 20 mg - Labs Labs: 09/13/18 06:22 09/13/18 06:22 PT 12.0 SECONDS (9.7-12.2) 09/06/18 12:55 INR 1.1 09/06/18 12:55 APTT 34 SECONDS (21-34) 09/07/18 06:58 Assessment and Plan - Assessment and Plan (Free Text) Assessment: A/P 58 yr old female with pmhx of CHF, COPD, Diabetes, HTN, Hypercholesterolemia admitted with exc. COPD AND CHF, pneumonia patient clinically improved with steroids, antibiotics and diuretics D/w Dr. Reyna cleared for discharge home with taper dose of prednisone , albuterol INH and 5 days of augmentin Discharge plan discussed with patient who understands and agrees with plan RX e prescribed to patient pharmacy
--- NOTE | 2018-09-14 15:47 | PCM.HF ---
Heart Failure Core Measure - Heart Failure Ejection Fraction: 40 % or Greater CARLOTA Inhibitor Prescribed: No Contraindication/Reason for not providing: on arb Beta-Doretha Prescribed: Bisoprolol Angiotensin II Receptor Doretha Prescribed: Yes AnticoagulationTherapy for Atrial Fibrillation/Atrialflutter: No Contraindication/Reason for not providing: no hx of CHF Aldosterone Antagonist Prescribed: No Contraindication/Reason for not providing: ef.45 Hydralazine Nitrate Prescribed: Yes Implantable Cardioverter Defibrillator Therapy: No Contraindication/Reason for not providing: ef>45 Cardiac Resynchronization Therapy Prescribed: No Contraindication/Reason for not providing: ef>45 - Follow up Will be discharged to: Home Follow Up Date (must be within 7 days from discharge): 09/19/18 Follow Up Time: 12:00
[2018-09-14 16:45] VITALS: BP 130/64; PULSE 81; RESP 20; TEMP 98.2; O2SAT 100
--- NOTE | 2018-09-14 19:23 | PN ---
DATE: 09/14/2018 SUBJECTIVE: The patient is now experiencing productive cough. She denies any chest pain. PHYSICAL EXAMINATION: VITAL SIGNS: Blood pressure 167/92, heart rate 77, temperature 98.4, respirations 18. HEENT: Normocephalic. CHEST: Clear. HEART: S1, S2. Regular. EXTREMITIES: 1+ pitting edema. ASSESSMENT: 1. Exacerbation of bronchial asthma. 2. Right-sided failure. 3. Coronary artery disease with history of coronary stenting in the past. 4. Uncontrolled diabetes mellitus. 5. Diabetic retinopathy. 6. Hypertension. RECOMMENDATIONS: Continue hydralazine 25 mg twice a day, aspirin 81 mg once a day, IV Rocephin and IV Zithromax. Continue Cozaar at 100 mg daily, Crestor 20 mg once a day, Lasix 40 mg intravenous twice a day, Robitussin DM 5 mL every 6 hours and Solu-Medrol 20 mg intravenously every 12 hours. The plan is to discharge the patient home today. Scott Villegas MD
--- NOTE | 2018-09-15 05:08 | DS ---
REASON FOR ADMISSION: This is a 58-year-old [place] female with history of congestive heart failure, coronary artery disease, type 2 diabetes mellitus, and bronchial asthma, was admitted for exacerbation of CHF/clinical pneumonia. COURSE OF HOSPITALIZATION: The patient was admitted to telemetry floor, and she was started on diuretics as well as IV Rocephin and azithromycin. Due to hyperactive airway disease and bronchospasm, the patient also was started on steroids that was gradually tapered down. The patient was having edema of both lower extremities, and she was given Lasix 40 mg twice a day. The patient's symptoms gradually improved, and the patient was discharged home on the tapering dose of antibiotics, tapering dose of cortisone as well as antibiotic Augmentin 875 twice a day for five more days, and to continue diuretics and her regular antihyperglycemic and antihypertensive medications. FINAL DIAGNOSES: 1. Exacerbation of congestive heart failure, acute on chronic systolic and diastolic. 2. Hyperactive airway disease with bronchospasm. 3. Clinical pneumonia. 4. Type 2 diabetes mellitus. 5. Coronary artery disease. Matt MD Axel
== END 2018-09-14 17:40 | disposition home or self-care (01) | DRG 291 ==
LOC: C.ER 10:36 → C.9E 14:27 → C.6T 16:52 → OBSVTOIN 09-08 16:17
PROVIDERS: ADMIT Internal Medicine; ATTEND Internal Medicine
DX: I11.0 Hypertensive heart disease with heart failure (principal); J18.9 Pneumonia, unspecified organism; J44.0 Chronic obstructive pulmonary disease with (acute) lower respiratory infection; J44.1 Chronic obstructive pulmonary disease with (acute) exacerbation; J45.901 Unspecified asthma with (acute) exacerbation; I50.43 Acute on chronic combined systolic (congestive) and diastolic (congestive) heart failure; H54.8 Legal blindness, as defined in USA; G89.29 Other chronic pain; F41.9 Anxiety disorder, unspecified; E87.6 Hypokalemia; E78.5 Hyperlipidemia, unspecified; I25.10 Atherosclerotic heart disease of native coronary artery without angina pectoris; E11.40 Type 2 diabetes mellitus with diabetic neuropathy, unspecified; Z95.5 Presence of coronary angioplasty implant and graft; E11.319 Type 2 diabetes mellitus with unspecified diabetic retinopathy without macular edema; D64.9 Anemia, unspecified; I44.7 Left bundle-branch block, unspecified; E11.65 Type 2 diabetes mellitus with hyperglycemia; Z79.4 Long term (current) use of insulin

== ENCOUNTER 2018-09-20 02:23 | Inpatient (IN) | payer MEDICARE ==
[2018-09-20 02:35] VITALS: BMI 39.0
[2018-09-20] MEDS ORDERED: Albuterol-Ipratrop 3 mg / 0.5 (3 ml) UD ONE ×3 (02:35→05:23)
[2018-09-20] MEDS ORDERED: Albuterol-Ipratrop 3 mg / 0.5 (3 ml) UD INH STA ×3 (02:39→05:14)
[2018-09-20 03:37] LABS: BASO # 0.1 K/uL (0.0-0.2); BASO % 0.5 % (0.0-2.0); HEMOGLOBIN 11.6 g/dL (11.0-16.0); LYMPH % 5.3 % (20.0-40.0); MEAN CELL VOLUME 79.2 fL (81.0-99.0); MEAN CORPUSCULAR HEMOGLOBIN 25.5 pg (27.0-31.0); MEAN CORPUSCULAR HGB CONC 32.2 g/dL (33.0-37.0); MEAN PLATELET VOLUME 8.5 fL (7.2-11.7); MONO # 1.4 K/uL (0.0-0.8); MONO % 7.2 % (0.0-10.0); PLATELET COUNT 356 K/uL (130-400); RBC 4.53 Mil/uL (3.80-5.20); RED CELL DISTRIBUTION WIDTH 16.2 % (11.5-14.5); WHITE BLOOD COUNT 19.6 K/uL (4.8-10.8)
[2018-09-20 04:43] LABS: TROPONIN I 0.036 ng/mL (0.00-0.120)
[2018-09-20 04:54] LABS: ALB/GLOB RATIO 1.3 (1.0-2.1); ALBUMIN 3.3 g/dL (3.5-5.0); CALCIUM 8.3 mg/dl (8.6-10.4)
--- NOTE | 2018-09-20 05:03 | C.PDOC ---
History Of Present Illness 58 year old female with PMHx of CHF is brought to the ED by EMS from home for evaluation of SOB. Patient was admitted 09/06-09/14 for CHF (due to right sided heart failure diastolic function). Patient had normal echogram in August. Patient denies headache, palpitations, rash, fever, chills, nausea, vomit, weakness, numbness. Time Seen by Provider: 09/20/18 02:39 Chief Complaint (Nursing): Shortness Of Breath History Per: Patient, EMS History/Exam Limitations: no limitations Onset/Duration Of Symptoms: Days Current Symptoms Are (Timing): Still Present Initiating Event: Upper Respiratory Illness Quality: Tightness Current Respiratory Medications: See Home Med List Recent travel outside of the [place]: No Additional History Per: Patient Past Medical History Reviewed: Historical Data, Nursing Documentation, Vital Signs Vital Signs: Last Vital Signs Temp 99.9 F H 09/20/18 02:40 Pulse 108 H 09/20/18 02:40 Resp 32 H 09/20/18 03:12 BP 117/48 L 09/20/18 02:40 Pulse Ox 99 09/20/18 03:12 - Medical History PMH: Asthma, Bronchitis, CHF, COPD, Diabetes, HTN, Hypercholesterolemia, Peripheral Edema, Pneumonia Denies: Chronic Kidney Disease Surgical History: Cholecystectomy, Coronary Stent (x3) - [facility] Procedures CORONAR ARTERIOGR-2 CATH (06/02/14) LEFT HEART CARDIAC CATH (06/02/14) LT HEART ANGIOCARDIOGRAM (06/02/14) NON-INVASIVE MECHANICAL VENTILATION (06/02/14) OTHER ENDOSCOPY OF SM INTEST (06/02/14) Family History: States: Unknown Family Hx - Social History Hx Tobacco Use: No (NO ANSWER) Hx Alcohol Use: No Hx Substance Use: No - Immunization History Hx Tetanus Toxoid Vaccination: No Hx Influenza Vaccination: No Hx Pneumococcal Vaccination: No Review Of Systems Constitutional: Negative for: Fever, Chills Cardiovascular: Negative for: Chest Pain, Palpitations Respiratory: Positive for: Shortness of Breath. Negative for: Cough Gastrointestinal: Negative for: Nausea, Vomiting, Abdominal Pain Skin: Negative for: Rash Neurological: Negative for: Weakness, Numbness, Headache, Dizziness Physical Exam - Physical Exam Appears: Non-toxic, No Acute Distress, Other (Anxious, pressure speech) Skin: Normal Color, Warm, Dry Head: Atraumatic, Normacephalic Eye(s): bilateral: Normal Inspection Oral Mucosa: Moist Neck: Normal ROM, Supple Chest: Symmetrical Cardiovascular: Rhythm Regular, No JVD Respiratory: No Rales, No Rhonchi, Wheezing (mild scattered), No Other (no egophony) Gastrointestinal/Abdominal: Soft, No Tenderness, No Guarding, No Rebound, Other (obese) Extremity: Normal ROM, No Tenderness, Pedal Edema (trace), Capillary Refill (< 2 seconds) Pulses: Left Dorsalis Pedis: Normal, Right Dorsalis Pedis: Normal Neurological/Psych: Oriented x3, Normal Speech, Normal Cognition Gait: Steady ED Course And Treatment - Laboratory Results Result Diagrams: 09/20/18 03:32 09/20/18 04:16 Lab Results: Troponin I 0.0360 ng/mL (0.00-0.120) 09/20/18 04:16 NT-Pro-B Natriuret Pep 416 pg/mL (0-900) 09/20/18 04:16 Total Bilirubin 0.6 mg/dL (0.2-1.3) 09/20/18 04:16 AST 31 U/L (14-36) 09/20/18 04:16 ALT 42 U/L (9-52) 09/20/18 04:16 Alkaline Phosphatase 91 U/L (38-126) 09/20/18 04:16 Total Protein 5.8 g/dL (6.3-8.3) L 09/20/18 04:16 Albumin 3.3 g/dL (3.5-5.0) L 09/20/18 04:16 Globulin 2.5 gm/dL (2.2-3.9) 09/20/18 04:16 Albumin/Globulin Ratio 1.3 (1.0-2.1) 09/20/18 04:16 Lab Interpretation: Abnormal ECG: Interpreted By Co ECG Rhythm: Sinus Rhythm, L BBB (unchanged from prior) ECG Interpretation: Normal Rate From EC O2 Sat by Pulse Oximetry: 99 (ON RA) Pulse Ox Interpretation: Normal - Radiology CXR: Interpreted by Me CXR Interpretation: Yes: No Acute Disease Reevaluation Time: 05:15 Reassessment Condition: Improved - Physician Consult Information Outcome Of Conversation: 514: d/w Dr. Axel, PMD, ok to Tele Obs Medical Decision Making Medical Decision Making: Plan: * EKG * Labs * Duoneb x 2 * Solumedrol 125 mg IVP * Xanax 0.25 mg PO * Blood culture * Influenza A B * Recurrent Asthma exacerbation ? compliance with nebs and environmental factors provoking reactive airway @ home. CHF: R-sided failure and diastolic dysfxn normal bnp euvolemic no diuretic given Anxiety argumentative and confrontational in ED and noted in admission notes. Xanax given with only mild improvement Disposition Doctor Will See Patient In The: Hospital Counseled Patient/Family Regarding: Studies Performed, Diagnosis - Disposition Disposition: HOSPITALIZED Disposition Time: 05:17 Condition: GOOD Forms: [employer] (Turkmen) - Clinical Impression Clinical Impression: Asthma, Anxiety - Scribe Statement The provider has reviewed the documentation as recorded by the Scribe Luther Stock All medical record entries made by the Scribe were at my direction and personally dictated by me. I have reviewed the chart and agree that the record accurately reflects my personal performance of the history, physical exam, medical decision making, and the department course for this patient. I have also personally directed, reviewed, and agree with the discharge instructions and disposition.
[2018-09-20] MEDS ORDERED: Pneumococcal 23-Valent Vaccine IM ONE (07:02)
[2018-09-20 07:38] LABS: ANISOCYTOSIS SLIGHT; LYMPHOCYTE 4 % (20-40); MONOCYTE 6 % (0-10); NEUTROPHIL 90 % (50-75); PLATELET ESTIMATE NORMAL (NORMAL); TOTAL CELLS COUNTED 100
[2018-09-20 07:39] LABS: OVALOCYTES SLIGHT; POLYCHROMIC SLIGHT; TEARDROP CELLS SLIGHT
--- NOTE | 2018-09-20 09:14 | RAD ---
Date of service: 09/20/2018 HISTORY: Shortness of breath COMPARISON: 09/07/2018 TECHNIQUE: 1 view obtained. FINDINGS: LUNGS: Patchy increased markings at the left lung base. Venous congestion. Bilateral hilar prominence. PLEURA: No significant pleural effusion identified, no pneumothorax apparent. CARDIOVASCULAR: Enlarged ectatic aorta. Cardiomegaly. Moderate pulmonary vascular congestion. OSSEOUS STRUCTURES: No significant abnormalities. VISUALIZED UPPER ABDOMEN: Normal. OTHER FINDINGS: None. IMPRESSION: Mild to moderate pulmonary vascular congestion with cardiomegaly which may represent an underlying component of congestive heart failure. Additional patchy increased markings at the left lung base which may represent some atelectasis and or infiltrate. Clinical correlation.
[2018-09-20] MEDS: (Novolin 70/30) NPH/Regular 70/30 Units/ml 10 ml vial SC SCH ×4 (10:22→17:39)
[2018-09-20] MEDS: Albuterol-Ipratrop 3 mg / 0.5 (3 ml) UD INH SCH ×4 (11:26→23:49)
[2018-09-20] MEDS ORDERED: (Novolin R) Insulin Human Regular 100 units/ml vial SC SCH (11:30)
[2018-09-20] MEDS: (Novolin R) Insulin Human Regular 100 units/ml vial SC SCH ×4 (12:22→22:15)
[2018-09-20] MEDS: MethylPREDNISolone 40 mg Vial IVP SCH ×2 (13:48→22:23)
[2018-09-20] MEDS: Acetylcysteine 20% Inhal Soln (4ml) INH SCH ×3 (15:26→23:49)
[2018-09-20] MEDS: Piperacillin/Tazobact 3.375 GM in Sodium Chloride 100 ML IVPB SCH ×2 (17:38→22:15)
[2018-09-20] MEDS: Vancomycin 1 gm/NS 200 ml 1 GM/200 ML BAG IVPB SCH (17:38)
--- NOTE | 2018-09-21 01:40 | HP ---
HISTORY OF PRESENT ILLNESS: This is a 58-year-old [place] female with a history of multiple medical problems, recently was in the hospital for exacerbation of congestive heart failure, presented to the emergency room on the day of admission with severe shortness of breath and wheezing. The patient states that since she was discharged from the hospital, she was still not back to her baseline and she was taking the antibiotics and Medrol Dosepak. The patient's shortness of breath and wheezing progressed until the patient presented to the emergency room for evaluation and admitted as she continued to wheeze after the regular conventional treatment of bronchospasm. REVIEW OF SYSTEMS: Other review of systems is negative. ALLERGIES: POSITIVE FOR ENALAPRIL. MEDICATIONS: Reviewed as per MAR and ordered. SOCIAL HISTORY: No history of smoking, ETOH or substance abuse. FAMILY HISTORY: Noncontributory. PAST MEDICAL HISTORY: Congestive heart failure, coronary artery disease, hypertension, type 2 diabetes mellitus, legally blind secondary to diabetic retinopathy. PHYSICAL EXAMINATION: GENERAL: The patient is in bed, in mild respiratory distress. VITAL SIGNS: Blood pressure 120/68, temperature 99.7, respiratory rate 20 and pulse 99. HEENT: Pupils are equal and reactive to light. Normal-appearing mucosa of the conjunctivae, oropharynx and nasal membrane mucosa. NECK: Supple. No JVD, no carotid bruit, no lymph node, no thyromegaly. CHEST AND LUNGS: Bilateral symmetrical expansion. Good air exchange. The patient has bilateral rhonchi all over lung landers and also bilateral basal rales. CARDIOVASCULAR SYSTEM: PMI not localized. S1 and S2. No additional sounds. ABDOMEN: Normoactive bowel sounds. No tenderness, no organomegaly, no masses. EXTREMITIES: No cyanosis, no clubbing, no edema. CENTRAL NERVOUS SYSTEM: Alert, awake, oriented x3. No neurological deficits could be appreciated. ASSESSMENT: 1. Exacerbation of bronchial asthma. 2. Diastolic heart failure. 3. Type 2 diabetes mellitus with hyperglycemia. 4. Hypertension. 4. Coronary artery disease, status post percutaneous coronary intervention. PLAN: Continue current medications including Solu-Medrol. We will start IV antibiotics, both Zosyn and vancomycin, due to the greenish mucus expectoration with possible clinical pneumonia. We will continue Solu-Medrol 20 mg IV every 8 hours. Sameh MD [facility] # [id number]
[2018-09-21] MEDS ORDERED: (Novolin R) Insulin Human Regular 100 units/ml vial SC ONE (02:28)
[2018-09-21] MEDS ORDERED: Dextrose 50% SYRINGE Inj (50 ml) IV PRN (02:29)
[2018-09-21] MEDS ORDERED: Glucagon Recombinant 1 mg Inj IM PRN (02:29)
[2018-09-21] MEDS ORDERED: guaiFENesin DM 200 mg-20 mg/10 ml UD PO STA (02:40)
[2018-09-21] MEDS: Albuterol-Ipratrop 3 mg / 0.5 (3 ml) UD INH SCH ×6 (03:47→23:46)
[2018-09-21] MEDS: Acetylcysteine 20% Inhal Soln (4ml) INH SCH ×5 (03:47→23:45)
[2018-09-21] MEDS: Piperacillin/Tazobact 3.375 GM in Sodium Chloride 100 ML IVPB SCH ×4 (04:02→21:31)
[2018-09-21] MEDS: Vancomycin 1 gm/NS 200 ml 1 GM/200 ML BAG IVPB SCH ×2 (04:03→16:14)
[2018-09-21] MEDS: MethylPREDNISolone 40 mg Vial IVP SCH ×2 (05:01→17:19)
[2018-09-21] MEDS: (Novolin R) Insulin Human Regular 100 units/ml vial SC SCH ×4 (07:02→22:23)
[2018-09-21 07:07] LABS: BASO % 0.3 % (0.0-2.0); HEMOGLOBIN 10.6 g/dL (11.0-16.0); LYMPH # 0.7 K/uL (1.0-4.3); MEAN CELL VOLUME 79.7 fL (81.0-99.0); MEAN CORPUSCULAR HEMOGLOBIN 25.9 pg (27.0-31.0); MEAN CORPUSCULAR HGB CONC 32.5 g/dL (33.0-37.0); MEAN PLATELET VOLUME 8.5 fL (7.2-11.7); MONO % 7.6 % (0.0-10.0); NEUT # 11.8 K/uL (1.8-7.0); NEUT % 87.1 % (50.0-75.0); PLATELET COUNT 279 K/uL (130-400); RBC 4.11 Mil/uL (3.80-5.20); RED CELL DISTRIBUTION WIDTH 16.3 % (11.5-14.5); WHITE BLOOD COUNT 13.5 K/uL (4.8-10.8)
[2018-09-21] MEDS: (Novolin 70/30) NPH/Regular 70/30 Units/ml 10 ml vial SC SCH ×3 (07:58→17:21)
[2018-09-21 08:18] LABS: CALCIUM 8.9 mg/dl (8.6-10.4)
[2018-09-21 08:41] LABS: ANISOCYTOSIS SLIGHT; LYMPHOCYTE 5 % (20-40); MONOCYTE 3 % (0-10); NEUTROPHIL 92 % (50-75); PLATELET ESTIMATE NORMAL (NORMAL); TOTAL CELLS COUNTED 100
[2018-09-21 08:43] LABS: HYPOCHROMIC SLIGHT; MICROCYTOSIS SLIGHT; POLYCHROMIC SLIGHT
[2018-09-21 08:44] LABS: OVALOCYTES SLIGHT
--- NOTE | 2018-09-21 15:19 | CP.PCM.CON ---
History of Present Illness - History of Present Illness History of Present Illness: 58 year old female with past medical history of Diabetes Mellitus, CHF, hyperlipidemia, hypertension, and a recent diagnosis of Reactive Airway Disease made by Dr. Reyna presents with shortness of breath and wheezing. Patient was recently hospitalized for CHF exacerbation and pneumonia two weeks ago. Patient states that despite taking antibiotics and medrol dosepak her shortness of breath progressed until she again felt the need to be hospitalized. Patient states she gets short of breath with walking, or any potential irritant (dust, paint fumes, laughing, weather change). She denies having a history of asthma but does complain about seasonal allergies. She states 4 years ago she was diagnosed with a hiatal hernia which could have led to the shortness of breath due to increased intrathoracic pressure. However patient still complained of SOB resulting in Dr. Reyna prescribing her Breo once daily, and a nebulizer which she takes 4 times a day. Patient does not have a rescue inhaler. Patient states she has night time wheezing and shortness of breath more than she can count and in fact does not sleep when she feels an attack coming on at night. She states she needs to use the nebulizer 4-5 days daily for symptom control. She states she has carpet in her bedroom, feather blanket and pillows and used to have pets. However she denies smoking, mold exposure, or occupational irritant exposures. ROS: SOB, Cough denies fever, chills, chest pain, lightheadedness. All other systems reviewed and negative. PMHx: DM, CHF, HLD, HTN, Hiatal Hernia, legally blind from diabetic retinopathy PSHx: 9 facial surgeries- unknown which type of surgery Allergies: enalapril and dust HEENT: Atraumatic, normocephalic, moist mucous membranes, normal neck inspection Respiratory: expiratory wheezes bilaterally, decreased air movement Cardiovascular: regular rate and rhythm GI/abdominal: normoactive bowel sounds Extremities: no pedal edema Neurologic: alert A/P 1. Asthma exacerbation. Continue current regimen. Peak flow every shift IgE level Patient candidate for monoclonal antibodies educate patient on rescue inhaler use as lifesaving measure when asthma attacks happen. Past Patient History - Infectious Disease Hx of Infectious Diseases: None - Past Medical History & Family History Past Medical History?: Yes - Past Social History Smoking Status: Never Smoked - CARDIAC Hx Congestive Heart Failure: Yes Hx Hypercholesterolemia: Yes Hx Hypertension: Yes - PULMONARY Hx Chronic Obstructive Pulmonary Disease (COPD): Yes - NEUROLOGICAL Hx Neurological Disorder: No - HEENT Hx HEENT Problems: Yes Hx Blind: Yes (legally blind both eyes) Hx Cataracts: Yes (hhad cataract sx 5 yrs ago) Other/Comment: Retinal detachment - RENAL Hx Chronic Kidney Disease: No - ENDOCRINE/METABOLIC Hx Diabetes Mellitus Type 2: Yes - HEMATOLOGICAL/ONCOLOGICAL Hx Blood Disorders: No - INTEGUMENTARY Hx Dermatological Problems: No - MUSCULOSKELETAL/RHEUMATOLOGICAL Hx Falls: Yes - GASTROINTESTINAL Hx Gastrointestinal Disorders: No - GENITOURINARY/GYNECOLOGICAL Hx Genitourinary Disorders: No - PSYCHIATRIC Hx Substance Use: No - SURGICAL HISTORY Hx Cholecystectomy: Yes Hx Coronary Stent: Yes (x3) - ANESTHESIA Hx Anesthesia: Yes Hx Anesthesia Reactions: No Hx Malignant Hyperthermia: No Meds Allergies/Adverse Reactions: Allergies Allergy/AdvReac Type Severity Reaction Status Date / Time enalapril Allergy ANAPHYLAXIS Verified 12/06/17 13:09 - Medications Medications: Current Medications Acetylcysteine (Acetylcysteine 20%) 4 ml INH RQ6 [facility] Last Admin: 09/21/18 13:00 Dose: 4 ml Albuterol/Ipratropium (Duoneb 3 Mg/0.5 Mg (3 Ml) Ud) 3 ml INH RQ4 [facility] Last Admin: 09/21/18 12:58 Dose: 3 ml Alprazolam (Xanax) 0.25 mg PO BID PRN PRN Reason: Anxiety Stop: 09/27/18 18:01 Bisoprolol Fumarate (Zebeta) 5 mg PO BID [facility] Last Admin: 09/21/18 12:57 Dose: 5 mg Dextrose (Dextrose 50% Inj) 0 ml IV STAT PRN; Protocol PRN Reason: Hypoglycemia Protocol Dextrose (Glutose 15) 0 gm PO ONCE PRN; Protocol PRN Reason: Hypoglycemia Protocol Furosemide (Lasix) 40 mg IVP BID [facility] Last Admin: 09/21/18 09:37 Dose: 40 mg Glucagon (Glucagen Diagnostic Kit) 0 mg IM STAT PRN; Protocol PRN Reason: Hypoglycemia Protocol Heparin Sodium (Porcine) (Heparin) 5,000 units SC Q12 [facility] Last Admin: 09/21/18 09:31 Dose: 5,000 units Hydralazine HCl (Apresoline) 25 mg PO BID [facility] Last Admin: 09/21/18 09:31 Dose: 25 mg Piperacillin Sod/Tazobactam (Sod 3.375 gm/ Sodium Chloride) 100 mls @ 200 mls/hr IVPB Q6H [facility]; Protocol Last Admin: 09/21/18 09:30 Dose: 200 mls/hr Vancomycin/Sodium Chloride (Vancomycin 1 Gm/Ns 200 Ml) 1 gm in 200 mls @ 166.6 mls/hr IVPB Q12H [facility]ER; Protocol Stop: 09/25/18 16:31 Last Admin: 09/21/18 04:03 Dose: 166.6 mls/hr Dextrose (Dextrose 5% In Water 1000 Ml) 1,000 mls @ 0 mls/hr IV .Q0M PRN; Protocol PRN Reason: Hypoglycemia Protocol Insulin Human Isoph/Insulin Regular (Novolin 70/30 (70/30 Units/Ml) 10 Ml) 40 units SC BID [facility] Last Admin: 09/21/18 09:31 Dose: Not Given Insulin Human Regular (Novolin R) 0 unit SC ACHS [facility]; Protocol Last Admin: 09/21/18 11:19 Dose: 12 unit Metformin HCl (Glucophage) 1,000 mg PO BIDCC [facility] Methylprednisolone (Solu-Medrol) 40 mg IVP Q12H [facility] Rosuvastatin Calcium (Crestor) 20 mg PO HS [facility] Last Admin: 09/20/18 22:13 Dose: 20 mg Sitagliptin Phosphate (Januvia) 50 mg PO DAILY [facility] Last Admin: 09/21/18 12:57 Dose: 50 mg Results - Vital Signs Recent Vital Signs: Last Vital Signs Temp 97.3 F L 09/21/18 07:00 Pulse 105 H 09/21/18 11:23 Resp 20 09/21/18 07:00 BP 161/93 H 09/21/18 09:37 Pulse Ox 95 09/21/18 07:00 - Labs Result Diagrams: 09/21/18 06:57 09/21/18 06:57 Labs: Laboratory Results - last 24 hr 09/20/18 09/20/18 09/21/18 16:42 21:42 01:57 WBC RBC Hgb Hct MCV MCH MCHC RDW Plt Count MPV Neut % (Auto) Lymph % (Auto) [place] % (Auto) Eos % (Auto) Baso % (Auto) Neut # (Auto) Lymph # (Auto) [place] # (Auto) Eos # (Auto) Baso # (Auto) Neutrophils % (Manual) Lymphocytes % (Manual) Monocytes % (Manual) Platelet Estimate Polychromasia Hypochromasia (manual) Anisocytosis (manual) Microcytosis (manual) Ovalocytes Sodium Potassium Chloride Carbon Dioxide Anion Gap BUN Creatinine Est GFR ( Amer) Est GFR (Non-Af Amer) POC Glucose (mg/dL) > 500 H* 454 H* 489 H* Random Glucose Hemoglobin A1c Calcium 09/21/18 09/21/18 09/21/18 06:57 06:57 06:57 WBC 13.5 H RBC 4.11 Hgb 10.6 L Hct 32.8 L MCV 79.7 L MCH 25.9 L MCHC 32.5 L RDW 16.3 H Plt Count 279 MPV 8.5 Neut % (Auto) 87.1 H Lymph % (Auto) 5.0 L [place] % (Auto) 7.6 Eos % (Auto) 0.0 Baso % (Auto) 0.3 Neut # (Auto) 11.8 H Lymph # (Auto) 0.7 L [place] # (Auto) 1.0 H Eos # (Auto) 0.0 Baso # (Auto) 0.0 Neutrophils % (Manual) 92 H Lymphocytes % (Manual) 5 L Monocytes % (Manual) 3 Platelet Estimate Normal Polychromasia Slight Hypochromasia (manual) Slight Anisocytosis (manual) Slight Microcytosis (manual) Slight Ovalocytes Slight Sodium 134 Potassium 4.1 Chloride 98 Carbon Dioxide 25 Anion Gap 15 BUN 29 H Creatinine 1.4 H Est GFR ( Amer) 47 Est GFR (Non-Af Amer) 39 POC Glucose (mg/dL) Random Glucose 413 H* D Hemoglobin A1c 9.1 H Calcium 8.9
[2018-09-21] MEDS: Promethazine 12.5 mg/10 ml Syrup PO SCH (19:54)
--- NOTE | 2018-09-21 20:48 | CARD ---
APPROVED REPORT Date of service: 09/20/2018 EKG Measurement Heart [id number] <Conclusion> Normal sinus rhythm Left axis deviation Septal infarct, age undetermined ST & T wave abnormality, consider lateral ischemia Abnormal ECG
[2018-09-21 21:24] LABS: SQUAMOUS EPITHIAL 1 /hpf (0-5); URINE BACTERIA RARE (<OCC); URINE BILIRUBIN NEGATIVE (NEGATIVE); URINE BLOOD NEGATIVE (NEGATIVE); URINE CLARITY Clear (Clear); URINE COLOR Straw (YELLOW); URINE GLUCOSE (UA) NORMAL (Normal); URINE LEUKOCYTE ESTERASE NEG Leu/uL (Negative); URINE PROTEIN 1+ mg/dL (NEGATIVE); URINE UROBILINOGEN NORMAL mg/dL (0.2-1.0)
--- NOTE | 2018-09-21 21:30 | PN ---
DATE: 09/21/2018 DAILY PROGRESS NOTE SUBJECTIVE: The patient is seen today, 09/21/2018. She is still having shortness of breath and cough and expectoration is improving. Blood sugar is not controlled. PHYSICAL EXAMINATION: VITAL SIGNS: Blood pressure 161/93, temperature 98.5, respiratory rate 28, and pulse 97. HEENT: Pupils equal and reactive to light. Normal-appearing mucosa of the conjunctivae, oropharynx and nasal membrane mucosa. NECK: Supple. No JVD. No carotid bruit. No lymph node. No thyromegaly. CHEST AND LUNGS: Bilateral symmetrical expansion. Good air exchange. No rales. No rhonchi. CARDIOVASCULAR SYSTEM: PMI not localized. S1 and S2. No additional sounds. ABDOMEN: Normoactive bowel sounds. No tenderness. No organomegaly. No masses. EXTREMITIES: No cyanosis, no clubbing, no edema. CENTRAL NERVOUS SYSTEM: Alert, awake, oriented x2. No neurological deficit could be appreciated. ASSESSMENT: Pneumonia, exacerbation of bronchial asthma, hypertension, type 2 diabetes mellitus with hyperglycemia. PLAN: Continue current bronchodilators, Mucomyst, steroids and IV antibiotics. We will also order a psychology consult due to the patient's possible depression secondary to extended time of bereavement. Georges Reyna MD
[2018-09-22] MEDS: Promethazine 12.5 mg/10 ml Syrup PO SCH ×4 (00:28→18:03)
[2018-09-22] MEDS: Albuterol-Ipratrop 3 mg / 0.5 (3 ml) UD INH SCH ×5 (03:18→20:02)
[2018-09-22] MEDS: Acetylcysteine 20% Inhal Soln (4ml) INH SCH ×4 (03:18→20:04)
[2018-09-22] MEDS: Piperacillin/Tazobact 3.375 GM in Sodium Chloride 100 ML IVPB SCH ×4 (03:43→21:00)
[2018-09-22] MEDS: Vancomycin 1 gm/NS 200 ml 1 GM/200 ML BAG IVPB SCH ×2 (04:35→16:21)
[2018-09-22] MEDS: MethylPREDNISolone 40 mg Vial IVP SCH ×2 (06:23→18:02)
[2018-09-22] MEDS: (Novolin 70/30) NPH/Regular 70/30 Units/ml 10 ml vial SC SCH ×2 (09:03→18:02)
[2018-09-22] MEDS: (Novolin R) Insulin Human Regular 100 units/ml vial SC SCH ×4 (09:04→21:36)
[2018-09-22] MEDS ORDERED: Home Med 1 UNIT (Metformin [Glucophage] 1,000 MG) PO SCH (10:00)
[2018-09-22 12:41] LABS: CALCIUM 8.3 mg/dl (8.6-10.4)
--- NOTE | 2018-09-22 15:41 | CP.PCM.CON ---
History of Present Illness - History of Present Illness History of Present Illness: Palliative consult requested by Doctor Reyna for goals of care discussion and emotional support of a patient Patient is a 58 o admitted from home with SOB, while walking very short distance. patient was treated at this hospital from 09/06-09/14 for similar symptoms, discharged home with PO antibiotics and Solumedrol pack. However, hina sutherland's condition did not improve much, even got worse and she was scared from nt being able to breath. 911 called. CXR on this admission was significant for moderate to severe pulmonary venous congestion. Pulmonary consult called with Doctor Gimenez. Rescu inhalors recommended and monoclonal antibodies testing. At home patient was using Breo prescribed by Doctor Reyna. Patient reprots uncontroled diabeis and weight gain due to steroids. PMH: asthma, bronchitis, COPD, DM, pneumonia, peripheral edema, coronary stents X 3, retinal detachment,legaly blind Soc. 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 Hx: Mother as burning victim, sister alive and well Review of Systems - Constitutional Constitutional: Weight Gain - EENT Eyes: Change in Vision, Other Visual Disturbances Ears: absent: As Per HPI, Decreased Hearing, Ear Discharge, Ear Pain, Tinnitus, Abnormal Hearing, Disequilibrium, Dizziness, Other Nose/Mouth/Throat: absent: As Per HPI, Epistaxis, Nasal Congestion, Nasal Discharge, Nasal Obstruction, Nasal Trauma, Nose Pain, Post Nasal Drip, Sinus Pain, Sinus Pressure, Bleeding Gums, Change in Voice, Dental Pain, Dry Mouth, Dysphagia, Halitosis, Hoarsness, Lip Swelling, Mouth Lesions, Mouth Pain, Odynophagia, Sore Throat, Throat Swelling, Tongue Swelling, Facial Pain, Neck Pain, Neck Mass, Other - Breasts Breasts: absent: As Per HPI, Change in Shape, Mass, Pain, Nipple Discharge, Nipple Inversion, Skin Changes, Swelling, Other - Cardiovascular Cardiovascular: Dyspnea, Dyspnea on Exertion, Edema - Respiratory Respiratory: Dyspnea, Dyspnea on Exertion, Wheezing, Chest Congestion - Gastrointestinal Gastrointestinal: absent: As Per HPI, Abdominal Pain, Belching, Bloating, Change in Bowel Habits, Change in Stool Character, Coffee Ground Emesis, Constipation, Cramping, Diarrhea, Dyspepsia, Dysphagia, Early Satiety, Excessive Flatus, Fecal Incontinence, Heartburn, Hematemesis, Hematochezia, Loose Stools, Melena, Nausea, Odynophagia, Temesmus, Vomiting, Other - Genitourinary Genitourinary: absent: As Per HPI, Change in Urinary Stream, Difficulty Urinating, Dysuria, Flank Pain, Hematuria, Pyuria, Nocturia, Urinary Incontinence, Urinary Frequency, Urinary Hesitance, Urinary Urgency, Voiding Freq/Small Amts, Freq UTI, Hx Renal/Bladder Calculi, Hx /Renal Surgery, Bladder Distension, Other - Reproductive: Female Reproductive:Female: Post Menopausal - Menstruation Menstruation: Post Menopausal - Musculoskeletal Musculoskeletal: absent: As Per HPI, Abnormal Gait, Arthralgias, Atrophy, Back Pain, Deformity, Joint Swelling, Limited Range of Motion, Loss of Height, Muscle Cramps, Muscle Weakness, Myalgias, Neck Pain, Numbness, Radiating Pain into Limb, Stiffness, Tingling, Other - Integumentary Integumentary: absent: As Per HPI, Acne, Alopecia, Bleeding Lesions, Change in Hair, Change in Nails, Change in Pigmentation, Changing Lesions, Dry Skin, Erythema, Furuncle, Hirsutism, Lesions, New Lesions, Non-Healing Lesions, Photosensitivity, Pruritus, Rash, Skin Pain, Skin Ulcer, Sores, Striae, Swelling, Unusual Bruising, Wounds, Jaundice, Other - Neurological Neurological: absent: As Per HPI, Abnormal Gait, Abnormal Hearing, Abnormal Movements, Abnormal Speech, Behavioral Changes, Burning Sensations, Confusion, Convulsions, Disequilibrium, Dizziness, Numbness, Focal Weakness, Frequent Falls, Headaches, Lack of Coordination, Loss of Vision, Memory Loss, Paresthesias, Radicular Pain, Restless Legs, Sensory Deficit, Syncope, Tingling, Tremor, Vertigo, Weakness, Other Visual Disturbances, Other - Psychiatric Psychiatric: Abnormal Sleep Pattern - Endocrine Endocrine: Change in Body Appearance, Flushing - Hematologic/Lymphatic Hematologic: absent: As Per HPI, Easy Bleeding, Easy Bruising, Lymphadenopathy, Other Past Patient History - Infectious Disease Hx of Infectious Diseases: None - Past Medical History & Family History Past Medical History?: Yes - Past Social History Smoking Status: Never Smoked - CARDIAC Hx Congestive Heart Failure: Yes Hx Hypercholesterolemia: Yes Hx Hypertension: Yes - PULMONARY Hx Chronic Obstructive Pulmonary Disease (COPD): Yes - NEUROLOGICAL Hx Neurological Disorder: No - HEENT Hx HEENT Problems: Yes Hx Blind: Yes (legally blind both eyes) Hx Cataracts: Yes (hhad cataract sx 5 yrs ago) Other/Comment: Retinal detachment - RENAL Hx Chronic Kidney Disease: No - ENDOCRINE/METABOLIC Hx Diabetes Mellitus Type 2: Yes - HEMATOLOGICAL/ONCOLOGICAL Hx Blood Disorders: No - INTEGUMENTARY Hx Dermatological Problems: No - MUSCULOSKELETAL/RHEUMATOLOGICAL Hx Falls: No - GASTROINTESTINAL Hx Gastrointestinal Disorders: No - GENITOURINARY/GYNECOLOGICAL Hx Genitourinary Disorders: No - PSYCHIATRIC Hx Substance Use: No - SURGICAL HISTORY Hx Cholecystectomy: Yes Hx Coronary Stent: Yes (x3) - ANESTHESIA Hx Anesthesia: Yes Hx Anesthesia Reactions: No Hx Malignant Hyperthermia: No Has any member of the family had a problem w/ anesthesia?: No Meds Allergies/Adverse Reactions: Allergies Allergy/AdvReac Type Severity Reaction Status Date / Time enalapril Allergy ANAPHYLAXIS Verified 12/06/17 13:09 - Medications Medications: Current Medications Acetylcysteine (Acetylcysteine 20%) 4 ml INH RQ6 [facility] Last Admin: 09/22/18 12:59 Dose: 4 ml Albuterol/Ipratropium (Duoneb 3 Mg/0.5 Mg (3 Ml) Ud) 3 ml INH RQ4 [facility] Last Admin: 09/22/18 12:55 Dose: 3 ml Alprazolam (Xanax) 0.25 mg PO BID PRN PRN Reason: Anxiety Stop: 09/27/18 18:01 Bisoprolol Fumarate (Zebeta) 5 mg PO BID [facility] Last Admin: 09/22/18 09:04 Dose: 5 mg Dextrose (Dextrose 50% Inj) 0 ml IV STAT PRN; Protocol PRN Reason: Hypoglycemia Protocol Dextrose (Glutose 15) 0 gm PO ONCE PRN; Protocol PRN Reason: Hypoglycemia Protocol Furosemide (Lasix) 40 mg IVP BID [facility] Last Admin: 09/22/18 09:03 Dose: 40 mg Glucagon (Glucagen Diagnostic Kit) 0 mg IM STAT PRN; Protocol PRN Reason: Hypoglycemia Protocol Heparin Sodium (Porcine) (Heparin) 5,000 units SC Q12 [facility] Last Admin: 09/22/18 09:03 Dose: 5,000 units Hydralazine HCl (Apresoline) 25 mg PO BID [facility] Last Admin: 09/22/18 09:03 Dose: 25 mg Piperacillin Sod/Tazobactam (Sod 3.375 gm/ Sodium Chloride) 100 mls @ 200 mls/hr IVPB Q6H [facility]; Protocol Last Admin: 09/22/18 09:26 Dose: 200 mls/hr Vancomycin/Sodium Chloride (Vancomycin 1 Gm/Ns 200 Ml) 1 gm in 200 mls @ 166.6 mls/hr IVPB Q12H [facility]; Protocol Stop: 09/25/18 16:31 Last Admin: 09/22/18 04:35 Dose: 166.6 mls/hr Dextrose (Dextrose 5% In Water 1000 Ml) 1,000 mls @ 0 mls/hr IV .Q0M PRN; Protocol PRN Reason: Hypoglycemia Protocol Insulin Human Isoph/Insulin Regular (Novolin 70/30 (70/30 Units/Ml) 10 Ml) 40 units SC BID [facility] Last Admin: 09/22/18 09:03 Dose: 40 units Insulin Human Regular (Novolin R) 0 unit SC ACHS [facility]; Protocol Last Admin: 09/22/18 12:47 Dose: 8 unit Metformin HCl (Glucophage) 1,000 mg PO BIDCC [facility] Last Admin: 09/22/18 09:03 Dose: 1,000 mg Methylprednisolone (Solu-Medrol) 40 mg IVP Q12H [facility] Last Admin: 09/22/18 06:23 Dose: 40 mg Pneumococcal Polyvalent Vaccine (Pneumovax 23 Vaccine) 0.5 ml IM .ONCE ONE Stop: 09/23/18 14:01 Promethazine HCl (Phenergan Syrup) 12.5 mg PO Q6 [facility] Last Admin: 09/22/18 12:47 Dose: 12.5 mg Rosuvastatin Calcium (Crestor) 20 mg PO HS [facility] Last Admin: 09/21/18 21:30 Dose: 20 mg Sitagliptin Phosphate (Januvia) 50 mg PO DAILY [facility] Last Admin: 09/22/18 09:03 Dose: 50 mg Physical Exam - Constitutional Appears: Chronically Ill - Head Exam Head Exam: ATRAUMATIC, NORMAL INSPECTION, NORMOCEPHALIC - Eye Exam Eye Exam: EOMI, Normal appearance Additional comments: legally blind - ENT Exam ENT Exam: Mucous Membranes Dry - Neck Exam Neck exam: Positive for: Normal Inspection - Respiratory Exam Respiratory Exam: Decreased Breath Sounds, Prolonged Expiratory Phase, Wheezes - Cardiovascular Exam Cardiovascular Exam: Tachycardia, REGULAR RHYTHM, +S1, +S2 - GI/Abdominal Exam GI & Abdominal Exam: Normal Bowel Sounds, Soft - Rectal Exam Rectal Exam: Deferred - Extremities Exam Extremities exam: Positive for: normal capillary refill, normal inspection, pedal edema, pedal pulses present - Back Exam Back exam: NORMAL INSPECTION - Neurological Exam Neurological exam: Alert, Normal Gait, Oriented x3, Reflexes Normal - Psychiatric Exam Psychiatric exam: Depressed, Normal Mood - Skin Skin Exam: Dry, Intact, Normal Color, Warm Results - Vital Signs Recent Vital Signs: Last Vital Signs Temp 98.4 F 09/22/18 07:00 Pulse 90 09/22/18 07:00 Resp 20 09/22/18 07:00 BP 143/72 09/22/18 09:03 Pulse Ox 98 09/22/18 07:00 - Labs Result Diagrams: 09/21/18 06:57 09/22/18 11:32 Labs: Laboratory Results - last 24 hr 09/21/18 09/21/18 09/21/18 17:01 21:10 21:43 Sodium Potassium Chloride Carbon Dioxide Anion Gap BUN Creatinine Est GFR ( Amer) Est GFR (Non-Af Amer) POC Glucose (mg/dL) 310 H 98 Random Glucose Calcium Urine Color Straw Urine Clarity Clear Urine pH 5.0 Ur Specific [place] 1.006 Urine Protein 1+ H Urine Glucose (UA) Normal Urine Ketones Negative Urine Blood Negative Urine Nitrate Negative Urine Bilirubin Negative Urine Urobilinogen Normal Ur Leukocyte Esterase Neg Urine WBC (Auto) 1 Urine RBC (Auto) < 1 Ur Squamous Epith Cells 1 Urine Bacteria Rare 09/22/18 09/22/18 11:17 11:32 Sodium 136 Potassium 4.0 Chloride 97 L Carbon Dioxide 27 Anion Gap 16 BUN 31 H Creatinine 1.2 Est GFR ( Amer) 56 Est GFR (Non-Af Amer) 46 POC Glucose (mg/dL) 309 H Random Glucose 298 H D Calcium 8.3 L Urine Color Urine Clarity Urine pH Ur Specific [place] Urine Protein Urine Glucose (UA) Urine Ketones Urine Blood Urine Nitrate Urine Bilirubin Urine Urobilinogen Ur Leukocyte Esterase Urine WBC (Auto) Urine RBC (Auto) Ur Squamous Epith Cells Urine Bacteria Assessment & Plan - Assessment and Plan (Free Text) Assessment: Palliative consult Full Code, there is no advance directive on chart, PPS 70% I reviewed all medical records, diagnostic studies and examined and interviewed patient in the bed. Patient is alert, oriented X 3 with affect and speech that is appropriate. Patient reports being legally blind, the left eye vision being worse. Breath sounds are diminished, congested, prolonged expiratory phase. Patient just walked to the bathroom a 10-15 feet away and got very SOB. O2Sat 98 % on 2 L O2. HR 80-90 ST, denies chest pain. Abdomen large, soft, active bowel sounds. patient reports weight gain and dif ficulties to control blood sugar due to Steroids Therapy she is on. Patient ambulates freely and has no difficulties ambulating except the SOB. WBC 13.5, Hb 10.6, blod sugar 300 - 400, on Novolin sliding scale. meds: Lasix 40 mg BID, Duo Neb, Zosyn Iv and Vanco IV for diagnosis of Pneumonia on this admission. I discussed with patient her symptoms of SOB and how those affect her life style. Patient admitted being concerned not being able to drive due to blindness and not being able to provide ADLs for her self due to SOB. Patient has not pets at home and is not using any wool blankets or feather pillows. Her symptoms are mostly exaggerated by activity. Patient admits being always tense what she attributes to many " bad things" that happened in her life but did not want to talk about it. She believes that tension also makes her asthma wore. Patient is especially affected by sudden changes in outside temperature. This condition is new to her and patient had a lot of questions regarding life style and meds . We discuss her needs for assistance at home. Patient welcomed the idea as she is feel very much dependent of assistance with ADLs such as food shopping, cooking, dusting, laundry, banking. Patient is concerned with her weight gain and believes is due to long use of ailyn roids. She would like to talk to Doctor Pernell aboutany alternative meds different that what she is using at present. Patient reports that her breathing gets worse after milk ingestion and avoids milk and milk products. Impression * SOB due to exacerbation of CHF * Pneumonia * legally blind, at risk for injury * Unable to ambulate due to severe SOB within short distance * Weight gain 2nd to Steroid use * lack of family support * Grieving a loss of child, does not want to talk about it * Needs assistance with ADLs due to disability Suggestions * Patient needs long acting beta2 adrenergic agonist * Patient will need a rescue inhalor for those sudden spasams * Please refer to Doctor Pernell as outpatient fallow ups, patient requested it * Patient needs to be educated on need to rinse her mouth with water after each inhalor use to avoid fungal infections * Would consider VNS services to assist with ADLs * Discharge home planing. Palliative care will sign off at this time.
--- NOTE | 2018-09-22 17:19 | CP.PCM.PN ---
Subjective - Date & Time of Evaluation Date of Evaluation: 09/22/18 Time of Evaluation: 14:00 - Subjective Subjective: Patient seen and examined Still complaining of shortness of breath on exertion Feeling better Afebrile Denies any chest pain Objective - Vital Signs/Intake and Output Vital Signs (last 24 hours): Temp Pulse Resp BP Pulse Ox 98.4 F 90 20 143/72 98 09/22/18 07:00 09/22/18 07:00 09/22/18 07:00 09/22/18 09:03 09/22/18 07:00 Intake and Output: 09/22/18 09/22/18 06:59 18:59 Intake Total 410 Balance 410 - Medications Medications: Current Medications Acetylcysteine (Acetylcysteine 20%) 4 ml INH RQ6 [facility] Last Admin: 09/22/18 12:59 Dose: 4 ml Albuterol/Ipratropium (Duoneb 3 Mg/0.5 Mg (3 Ml) Ud) 3 ml INH RQ4 [facility] Last Admin: 09/22/18 16:18 Dose: 3 ml Alprazolam (Xanax) 0.25 mg PO BID PRN PRN Reason: Anxiety Stop: 09/27/18 18:01 Bisoprolol Fumarate (Zebeta) 5 mg PO BID [facility] Last Admin: 09/22/18 09:04 Dose: 5 mg Dextrose (Dextrose 50% Inj) 0 ml IV STAT PRN; Protocol PRN Reason: Hypoglycemia Protocol Dextrose (Glutose 15) 0 gm PO ONCE PRN; Protocol PRN Reason: Hypoglycemia Protocol Furosemide (Lasix) 40 mg IVP BID [facility] Last Admin: 09/22/18 09:03 Dose: 40 mg Glucagon (Glucagen Diagnostic Kit) 0 mg IM STAT PRN; Protocol PRN Reason: Hypoglycemia Protocol Heparin Sodium (Porcine) (Heparin) 5,000 units SC Q12 [facility] Last Admin: 09/22/18 09:03 Dose: 5,000 units Hydralazine HCl (Apresoline) 25 mg PO BID [facility] Last Admin: 09/22/18 09:03 Dose: 25 mg Piperacillin Sod/Tazobactam (Sod 3.375 gm/ Sodium Chloride) 100 mls @ 200 mls/hr IVPB Q6H [facility]; Protocol Last Admin: 09/22/18 16:19 Dose: 200 mls/hr Vancomycin/Sodium Chloride (Vancomycin 1 Gm/Ns 200 Ml) 1 gm in 200 mls @ 166.6 mls/hr IVPB Q12H [facility]; Protocol Stop: 09/25/18 16:31 Last Admin: 09/22/18 16:21 Dose: 166.6 mls/hr Dextrose (Dextrose 5% In Water 1000 Ml) 1,000 mls @ 0 mls/hr IV .Q0M PRN; Protocol PRN Reason: Hypoglycemia Protocol Insulin Human Isoph/Insulin Regular (Novolin 70/30 (70/30 Units/Ml) 10 Ml) 40 units SC BID [facility] Last Admin: 09/22/18 09:03 Dose: 40 units Insulin Human Regular (Novolin R) 0 unit SC ACHS [facility]; Protocol Last Admin: 09/22/18 12:47 Dose: 8 unit Metformin HCl (Glucophage) 1,000 mg PO BIDCC [facility] Last Admin: 09/22/18 09:03 Dose: 1,000 mg Methylprednisolone (Solu-Medrol) 40 mg IVP Q12H [facility] Last Admin: 09/22/18 06:23 Dose: 40 mg Pneumococcal Polyvalent Vaccine (Pneumovax 23 Vaccine) 0.5 ml IM .ONCE ONE Stop: 09/23/18 14:01 Promethazine HCl (Phenergan Syrup) 12.5 mg PO Q6 [facility] Last Admin: 09/22/18 12:47 Dose: 12.5 mg Rosuvastatin Calcium (Crestor) 20 mg PO HS [facility] Last Admin: 09/21/18 21:30 Dose: 20 mg Sitagliptin Phosphate (Januvia) 50 mg PO DAILY [facility] Last Admin: 09/22/18 09:03 Dose: 50 mg - Labs Labs: 09/21/18 06:57 09/22/18 11:32 - Head Exam Head Exam: ATRAUMATIC, NORMOCEPHALIC - ENT Exam ENT Exam: Mucous Membranes Moist - Neck Exam Neck Exam: Normal Inspection - Respiratory Exam Respiratory Exam: Rhonchi, Wheezes - Cardiovascular Exam Cardiovascular Exam: REGULAR RHYTHM - GI/Abdominal Exam GI & Abdominal Exam: Soft, Normal Bowel Sounds - Extremities Exam Extremities Exam: Normal Inspection - Neurological Exam Neurological Exam: Alert, Oriented x3 Assessment and Plan (1) Asthma exacerbation Assessment & Plan: Taper IV steroids Nebulizer treatment Continue Singulair Follow-up IgE level and if elevated patient is candidate for Xolair Patient advised to lose weight Glycemic control Status: Acute
--- NOTE | 2018-09-22 19:23 | PN ---
DATE: 09/22/2018 SUBJECTIVE: The patient is seen today, 09/22/2018. She still has exertional shortness of breath. PHYSICAL EXAMINATION: VITAL SIGNS: Blood pressure 143/72, temperature 98.4, respiratory rate 20, and pulse 90. HEENT: Pupils equal, reactive to light. Normal-appearing mucosa of the conjunctivae, oropharynx and nasal membrane mucosa. NECK: Supple. No JVD. No carotid bruit. No lymph node. No thyromegaly. CHEST AND LUNGS: Bilateral symmetrical expansion. Good air exchange. No rales. There are scattered rhonchi in both lung landers. CARDIOVASCULAR: PMI not localized. S1, S2. No additional sounds. ABDOMEN: Normoactive bowel sounds. No tenderness. No organomegaly. No masses. EXTREMITIES: No cyanosis, no clubbing, no edema. CENTRAL NERVOUS SYSTEM: Alert, awake, oriented x2. No neurological deficit could be appreciated. ASSESSMENT: Exacerbation of bronchial asthma, bilateral pneumonia, congestive heart failure, acute on chronic systolic and diastolic, coronary artery disease, hypertension, type 2 diabetes mellitus. PLAN: Continue current antibiotics and steroids . We will repeat blood work. Georges Reyna MD
[2018-09-23] MEDS: Promethazine 12.5 mg/10 ml Syrup PO SCH ×4 (00:32→18:44)
[2018-09-23] MEDS: Albuterol-Ipratrop 3 mg / 0.5 (3 ml) UD INH SCH ×6 (00:47→19:30)
[2018-09-23] MEDS: Acetylcysteine 20% Inhal Soln (4ml) INH SCH ×5 (00:47→19:30)
[2018-09-23] MEDS: Piperacillin/Tazobact 3.375 GM in Sodium Chloride 100 ML IVPB SCH ×4 (03:43→22:37)
[2018-09-23] MEDS: MethylPREDNISolone 40 mg Vial IVP SCH ×2 (05:10→18:44)
[2018-09-23] MEDS: (Novolin R) Insulin Human Regular 100 units/ml vial SC SCH ×4 (08:39→22:02)
[2018-09-23] MEDS: (Novolin 70/30) NPH/Regular 70/30 Units/ml 10 ml vial SC SCH ×2 (09:04→18:44)
[2018-09-23] MEDS ORDERED: Pneumococcal 23-Valent Vaccine IM ONE (14:00)
[2018-09-23] MEDS ORDERED: Albuterol HFA 90 mcg/actuation (8 g) INH PRN (14:07)
--- NOTE | 2018-09-23 17:40 | PN ---
DATE: 09/23/2018 SUBJECTIVE: The patient is seen today 09/23/2018. She still has wheezing and shortness of breath. PHYSICAL EXAMINATION: VITAL SIGNS: Blood pressure 122/80, temperature 98.8, respiratory rate 20, and pulse 93. HEENT: Pupils equal, reactive to light. Normal-appearing mucosa of the conjunctivae, oropharynx and nasal membrane mucosa. NECK: Supple. No JVD. No carotid bruit. No lymph node. No thyromegaly. CHEST AND LUNGS: Bilateral symmetrical expansion. Good air exchange. The patient has bilateral rhonchi scattered all over lung landers. CARDIOVASCULAR: PMI not localized. S1, S2. No additional sounds. ABDOMEN: Normoactive bowel sounds. No tenderness. No organomegaly. No masses. EXTREMITIES: No cyanosis, no clubbing, no edema. CENTRAL NERVOUS SYSTEM: Alert, awake, oriented x2. No neurological deficit could be appreciated. ASSESSMENT: 1. Exacerbation of bronchial asthma. 2. Congestive heart failure, acute on chronic systolic and diastolic. 3. Bilateral pneumonia. 4. Type 2 diabetes mellitus. 5. Hypertension. PLAN: Continue current antibiotics. We held the vancomycin because of the trough, it is 26. Continue current medications and steroids and bronchodilators. Follow Pulmonary consult recommendations. Georges Reyna MD
--- NOTE | 2018-09-23 18:29 | CP.PCM.PN ---
Subjective - Date & Time of Evaluation Date of Evaluation: 09/23/18 Time of Evaluation: 09:00 - Subjective Subjective: Patient was seen and examined at bedside. Patient states she is feeling better and is getting less short of breath when ambulating. She states she still feels wheezy. She denies fevers, chills, nausea, vomiting, and diarrhea. Physical Exam: Vital: Temp: 98.8 F, P 93, BP 168/82, RR 20 General: well appearing, more cheerful than the previous day HEENT: Atraumatic, normal cephalic, PERRL, normal neck inspection Cardio: normal s1 s2 sounds Pulm: no accessory muscle usage, mild wheezing, GI: normal bowel sounds Extremities: no pedal edema A/P: 58 year old female with a PMH of DM, CHF, HLD, HTN, legally blind secondary to d iabetic retinopathy, and asthma. Patient was admitted for asthma exacerbation. 1. Asthma Exacerbation -taper IV steriod -continue nebulizer treatment -start singular 1 tab daily PM -patient may need Xolair if IgE level is high Objective - Vital Signs/Intake and Output Vital Signs (last 24 hours): Temp Pulse Resp BP Pulse Ox 98.5 F 90 20 153/68 H 93 L 09/23/18 15:25 09/23/18 15:25 09/23/18 15:25 09/23/18 15:25 09/23/18 15:25 Intake and Output: 09/23/18 09/23/18 06:59 18:59 Intake Total 110 400 Balance 110 400 - Medications Medications: Current Medications Acetylcysteine (Acetylcysteine 20%) 4 ml INH RQ6 [facility] Last Admin: 09/23/18 15:56 Dose: 4 ml Albuterol (Ventolin Hfa 90 Mcg/Actuation (8 G)) 1 puff INH RQ6 PRN PRN Reason: Shortness of Breath Albuterol/Ipratropium (Duoneb 3 Mg/0.5 Mg (3 Ml) Ud) 3 ml INH RQ4 [facility] Last Admin: 09/23/18 15:56 Dose: 3 ml Alprazolam (Xanax) 0.25 mg PO BID PRN PRN Reason: Anxiety Stop: 09/27/18 18:01 Bisoprolol Fumarate (Zebeta) 5 mg PO BID [facility] Last Admin: 09/23/18 10:50 Dose: 5 mg Dextrose (Dextrose 50% Inj) 0 ml IV STAT PRN; Protocol PRN Reason: Hypoglycemia Protocol Dextrose (Glutose 15) 0 gm PO ONCE PRN; Protocol PRN Reason: Hypoglycemia Protocol Furosemide (Lasix) 40 mg IVP BID [facility] Last Admin: 09/23/18 10:50 Dose: 40 mg Glucagon (Glucagen Diagnostic Kit) 0 mg IM STAT PRN; Protocol PRN Reason: Hypoglycemia Protocol Heparin Sodium (Porcine) (Heparin) 5,000 units SC Q12 [facility] Last Admin: 09/23/18 11:30 Dose: 5,000 units Hydralazine HCl (Apresoline) 25 mg PO BID [facility] Last Admin: 09/23/18 10:51 Dose: 25 mg Piperacillin Sod/Tazobactam (Sod 3.375 gm/ Sodium Chloride) 100 mls @ 200 mls/hr IVPB Q6H [facility]; Protocol Last Admin: 09/23/18 11:31 Dose: 200 mls/hr Dextrose (Dextrose 5% In Water 1000 Ml) 1,000 mls @ 0 mls/hr IV .Q0M PRN; Protocol PRN Reason: Hypoglycemia Protocol Insulin Human Isoph/Insulin Regular (Novolin 70/30 (70/30 Units/Ml) 10 Ml) 40 units SC BID [facility] Last Admin: 09/23/18 09:04 Dose: 40 units Insulin Human Regular (Novolin R) 0 unit SC ACHS [facility]; Protocol Last Admin: 09/23/18 13:06 Dose: 6 unit Metformin HCl (Glucophage) 1,000 mg PO BIDCC [facility] Last Admin: 09/23/18 08:38 Dose: 1,000 mg Methylprednisolone (Solu-Medrol) 40 mg IVP Q12H [facility] Last Admin: 09/23/18 05:10 Dose: 40 mg Promethazine HCl (Phenergan Syrup) 12.5 mg PO Q6 [facility] Last Admin: 09/23/18 13:07 Dose: 12.5 mg Rosuvastatin Calcium (Crestor) 20 mg PO HS [facility] Last Admin: 09/22/18 21:00 Dose: 20 mg Sitagliptin Phosphate (Januvia) 50 mg PO DAILY [facility] Last Admin: 09/23/18 10:51 Dose: 50 mg - Labs Labs: 09/21/18 06:57 09/22/18 11:32 Assessment and Plan (1) Asthma exacerbation Status: Acute
[2018-09-24] MEDS: Acetylcysteine 20% Inhal Soln (4ml) INH SCH ×5 (00:45→19:37)
[2018-09-24] MEDS: Albuterol-Ipratrop 3 mg / 0.5 (3 ml) UD INH SCH ×6 (00:45→19:37)
[2018-09-24] MEDS: Promethazine 12.5 mg/10 ml Syrup PO SCH ×4 (00:51→17:49)
[2018-09-24] MEDS: Piperacillin/Tazobact 3.375 GM in Sodium Chloride 100 ML IVPB SCH ×4 (05:00→21:17)
[2018-09-24] MEDS: MethylPREDNISolone 40 mg Vial IVP SCH ×2 (06:12→17:49)
[2018-09-24] MEDS: (Novolin R) Insulin Human Regular 100 units/ml vial SC SCH ×4 (08:38→22:12)
[2018-09-24] MEDS: (Novolin 70/30) NPH/Regular 70/30 Units/ml 10 ml vial SC SCH ×2 (09:04→17:48)
--- NOTE | 2018-09-24 20:34 | PN ---
DATE: 09/24/2018 DAILY PROGRESS NOTE SUBJECTIVE: The patient is seen today, 09/24/2018. She is still having exertional shortness of breath. The patient has scattered rhonchi bilaterally. PHYSICAL EXAMINATION: VITAL SIGNS: Blood pressure is 165/81, temperature 98.2, respiratory rate 20, and pulse 90. HEENT: Pupils equal, reactive to light. Normal-appearing mucosa of the conjunctivae, oropharynx and nasal membrane mucosa. NECK: Supple. No JVD. No carotid bruit. No lymph node. No thyromegaly. CHEST AND LUNGS: Bilateral scattered rhonchi. CARDIOVASCULAR SYSTEM: PMI not localized. S1, S2. No additional sounds. ABDOMEN: Normoactive bowel sounds. No tenderness. No organomegaly. No masses. EXTREMITIES: No cyanosis, no clubbing, no edema. CENTRAL NERVOUS SYSTEM: Alert, awake, oriented x3. No neurological deficit could be appreciated. ASSESSMENT: Exacerbation of bronchial asthma, bilateral pneumonia, congestive heart failure acute on chronic, type 2 diabetes mellitus with hyperglycemia, diabetic neuropathy and also retinopathy. PLAN: We will evaluate for subacute rehabilitation. If the patient continues to need IV medications, we will discharge to subacute rehab once we get the authorization. Continue current management. Georges Reyna MD
--- NOTE | 2018-09-24 20:45 | CP.PCM.PN ---
Subjective - Date & Time of Evaluation Date of Evaluation: 09/24/18 Time of Evaluation: 19:00 - Subjective Subjective: S: Patient was seen and examined at bedside. Patient states she is feeling better but she still feels wheezy. She denies fevers, chills, nausea, vomiting, and diarrhea. Patient would like someone to teach her how to use a rescue inhal er. Physical Exam: Vital: Temp: 98.2 F, P 94, BP 177/80, RR 20 General: well appearing, more cheerful than the previous day HEENT: Atraumatic, normal cephalic, PERRL, normal neck inspection Cardio: normal s1 s2 sounds Pulm: mild wheezing, GI: normal bowel sounds Extremities: no pedal edema A/P: 58 year old female with a PMH of DM, CHF, HLD, HTN, legally blind secondary to diabetic retinopathy, and asthma. Patient was admitted for asthma exacerbation. 1. Asthma Exacerbation -continue nebulizer treatment - Taper steroids -start singular 1 tab daily PM -Elevated IgE level consistent with allergic asthma -Patient is candidate for Biologics Objective - Vital Signs/Intake and Output Vital Signs (last 24 hours): Temp Pulse Resp BP Pulse Ox 98.2 F 93 H 20 151/77 H 95 09/24/18 16:06 09/24/18 16:06 09/24/18 16:06 09/24/18 17:50 09/24/18 16:06 Intake and Output: 09/24/18 09/25/18 18:59 06:59 Intake Total 500 Balance 500 - Medications Medications: Current Medications Acetylcysteine (Acetylcysteine 20%) 4 ml INH RQ6 [facility] Last Admin: 09/24/18 19:37 Dose: 4 ml Albuterol (Ventolin Hfa 90 Mcg/Actuation (8 G)) 1 puff INH RQ6 PRN PRN Reason: Shortness of Breath Albuterol/Ipratropium (Duoneb 3 Mg/0.5 Mg (3 Ml) Ud) 3 ml INH RQ4 [facility] Last Admin: 09/24/18 19:37 Dose: 3 ml Alprazolam (Xanax) 0.25 mg PO BID PRN PRN Reason: Anxiety Stop: 09/27/18 18:01 Bisoprolol Fumarate (Zebeta) 5 mg PO BID [facility] Last Admin: 09/24/18 17:50 Dose: 5 mg Dextrose (Dextrose 50% Inj) 0 ml IV STAT PRN; Protocol PRN Reason: Hypoglycemia Protocol Dextrose (Glutose 15) 0 gm PO ONCE PRN; Protocol PRN Reason: Hypoglycemia Protocol Furosemide (Lasix) 40 mg IVP BID [facility] Last Admin: 09/24/18 17:50 Dose: 40 mg Glucagon (Glucagen Diagnostic Kit) 0 mg IM STAT PRN; Protocol PRN Reason: Hypoglycemia Protocol Heparin Sodium (Porcine) (Heparin) 5,000 units SC Q12 [facility] Last Admin: 09/24/18 09:13 Dose: 5,000 units Hydralazine HCl (Apresoline) 25 mg PO BID [facility] Last Admin: 09/24/18 17:50 Dose: 25 mg Piperacillin Sod/Tazobactam (Sod 3.375 gm/ Sodium Chloride) 100 mls @ 200 mls/hr IVPB Q6H [facility]; Protocol Last Admin: 09/24/18 16:58 Dose: 200 mls/hr Insulin Human Isoph/Insulin Regular (Novolin 70/30 (70/30 Units/Ml) 10 Ml) 40 units SC BID [facility] Last Admin: 09/24/18 17:48 Dose: 40 units Insulin Human Regular (Novolin R) 0 unit SC ACHS [facility]; Protocol Last Admin: 09/24/18 17:49 Dose: 8 unit Metformin HCl (Glucophage) 1,000 mg PO BIDCC [facility] Last Admin: 09/24/18 17:50 Dose: 1,000 mg Methylprednisolone (Solu-Medrol) 40 mg IVP Q12H [facility] Last Admin: 09/24/18 17:49 Dose: 40 mg Montelukast Sodium (Singulair) 10 mg PO HS [facility] Promethazine HCl (Phenergan Syrup) 12.5 mg PO Q6 [facility] Last Admin: 09/24/18 17:49 Dose: 12.5 mg Rosuvastatin Calcium (Crestor) 20 mg PO HS [facility] Last Admin: 09/23/18 22:37 Dose: 20 mg Sitagliptin Phosphate (Januvia) 50 mg PO DAILY [facility] Last Admin: 09/24/18 09:13 Dose: 50 mg - Labs Labs: 09/21/18 06:57 09/22/18 11:32 Assessment and Plan (1) Asthma exacerbation Status: Acute
[2018-09-25] MEDS: Albuterol-Ipratrop 3 mg / 0.5 (3 ml) UD INH SCH ×4 (00:55→14:12)
[2018-09-25] MEDS: Acetylcysteine 20% Inhal Soln (4ml) INH SCH ×5 (00:55→19:38)
[2018-09-25] MEDS: Promethazine 12.5 mg/10 ml Syrup PO SCH ×4 (01:08→17:22)
[2018-09-25] MEDS: Piperacillin/Tazobact 3.375 GM in Sodium Chloride 100 ML IVPB SCH ×3 (04:35→17:00)
[2018-09-25] MEDS: MethylPREDNISolone 40 mg Vial IVP SCH ×2 (05:39→17:23)
[2018-09-25 07:05] LABS: BASO # 0.1 K/uL (0.0-0.2); BASO % 0.4 % (0.0-2.0); EOS % 0.1 % (0.0-4.0); LYMPH # 1.9 K/uL (1.0-4.3); LYMPH % 11.3 % (20.0-40.0); MEAN CELL VOLUME 79.7 fL (81.0-99.0); MEAN CORPUSCULAR HEMOGLOBIN 25.8 pg (27.0-31.0); MEAN CORPUSCULAR HGB CONC 32.4 g/dL (33.0-37.0); MEAN PLATELET VOLUME 8.4 fL (7.2-11.7); MONO % 5.9 % (0.0-10.0); NEUT % 82.3 % (50.0-75.0); NRBC % 0.1 % (0.0-2.0); RBC 4.25 Mil/uL (3.80-5.20); RED CELL DISTRIBUTION WIDTH 15.8 % (11.5-14.5)
[2018-09-25 07:29] LABS: CALCIUM 8.9 mg/dl (8.6-10.4)
[2018-09-25] MEDS: (Novolin R) Insulin Human Regular 100 units/ml vial SC SCH ×4 (08:10→22:24)
[2018-09-25] MEDS: (Novolin 70/30) NPH/Regular 70/30 Units/ml 10 ml vial SC SCH ×2 (09:04→17:21)
--- NOTE | 2018-09-25 21:14 | PN ---
DATE: 09/25/2018 DAILY PROGRESS NOTE SUBJECTIVE: The patient is seen today, 09/25/2018. She is not in any cardiopulmonary distress. PHYSICAL EXAMINATION: VITAL SIGNS: Blood pressure 170/79, temperature 98, respiratory rate 20, and pulse 89. HEENT: Pupils equal, reactive to light. Normal-appearing mucosa of the conjunctivae, oropharynx and nasal membrane mucosa. NECK: Supple. No JVD. No carotid bruit. No lymph node. No thyromegaly. CHEST AND LUNGS: Bilateral symmetrical expansion. Good air exchange. No rales. No rhonchi. CARDIOVASCULAR SYSTEM: PMI not localized. S1, S2. No additional sounds. ABDOMEN: Normoactive bowel sounds. No tenderness. No organomegaly. No masses. EXTREMITIES: No cyanosis, no clubbing, no edema. CENTRAL NERVOUS SYSTEM: Alert, awake, oriented x2. No neurological deficit could be appreciated. ASSESSMENT: 1. Exacerbation of bronchial asthma, 2. Exacerbation of congestive heart failure, acute on chronic. 3. Pneumonia. 4. Type 2 diabetes mellitus with hyperglycemia. 5. Hypertension. PLAN: Continue current medications and follow up recommendations of hand cooper helper and chef assistant. Georges Reyna MD
[2018-09-26] MEDS: Promethazine 12.5 mg/10 ml Syrup PO SCH ×4 (00:30→17:46)
[2018-09-26] MEDS ORDERED: Albuterol-Ipratrop 3 mg / 0.5 (3 ml) UD INH STA ×2 (01:04→04:50)
[2018-09-26] MEDS: Acetylcysteine 20% Inhal Soln (4ml) INH SCH ×5 (01:17→23:33)
[2018-09-26] MEDS: MethylPREDNISolone 40 mg Vial IVP SCH ×2 (05:42→17:46)
[2018-09-26] MEDS: Albuterol-Ipratrop 3 mg / 0.5 (3 ml) UD INH SCH ×4 (07:59→23:34)
[2018-09-26] MEDS: (Novolin R) Insulin Human Regular 100 units/ml vial SC SCH ×4 (08:00→21:47)
[2018-09-26] MEDS: (Novolin 70/30) NPH/Regular 70/30 Units/ml 10 ml vial SC SCH ×2 (09:55→17:45)
--- NOTE | 2018-09-26 12:28 | CP.PCM.PN ---
Subjective - Date & Time of Evaluation Date of Evaluation: 09/26/18 Time of Evaluation: 12:28 - Subjective Subjective: Pulmonary follow up, Covering Dr Gimenez The Patient was seen and examined at the bedside, Medical records reviewed, and management issues were discussed and formulated with the house staff. Events reviewed Patient is 58 years old female with past medical history of hypertension, hypercholesterolemia, diabetes mellitus and recently diagnosed with adult onset asthma Lifetime non-smoker Multiple history of allergies Patient is admitted with worsening shortness of breath secondary to to acute asthma exacerbation Currently on intravenous antibiotic, IV steroids and bronchodilator nebulizers. Singulair was added on this admission Of note IgE level is markedly elevated Patient is feeling slightly better today she is able to speak full sentences but she is dyspneic on minimal exertion She is afebrile Still on supplemental oxygen with 2 L nasal cannula to maintain saturation above 94% Dry cough, no sputum production or hemoptysis Continue current management, very slow taper of IV steroids Antibiotics continue with IV Zosyn, will continue IV vancomycin at this time Patient candidate for monoclonal antibodies Patient educations performed, she gave up her pets and using hypoallergenic, but she has old carpet and she is thinking of removing it Objective - Vital Signs/Intake and Output Vital Signs (last 24 hours): Temp Pulse Resp BP Pulse Ox 97.6 F 84 18 167/76 H 96 09/26/18 07:12 09/26/18 07:12 09/26/18 07:12 09/26/18 09:55 09/26/18 07:12 Intake and Output: 09/26/18 09/26/18 06:59 18:59 Intake Total 450 Balance 450 - Medications Medications: Current Medications Acetylcysteine (Acetylcysteine 20%) 4 ml INH RQ6 [facility] Last Admin: 09/26/18 07:58 Dose: 4 ml Albuterol (Ventolin Hfa 90 Mcg/Actuation (8 G)) 1 puff INH RQ6 PRN PRN Reason: Shortness of Breath Albuterol/Ipratropium (Duoneb 3 Mg/0.5 Mg (3 Ml) Ud) 3 ml INH RQ4 [facility] Last Admin: 09/26/18 07:59 Dose: 3 ml Alprazolam (Xanax) 0.25 mg PO BID PRN PRN Reason: Anxiety Stop: 09/27/18 18:01 Bisoprolol Fumarate (Zebeta) 5 mg PO BID [facility] Last Admin: 09/26/18 09:56 Dose: 5 mg Dextrose (Dextrose 50% Inj) 0 ml IV STAT PRN; Protocol PRN Reason: Hypoglycemia Protocol Dextrose (Glutose 15) 0 gm PO ONCE PRN; Protocol PRN Reason: Hypoglycemia Protocol Furosemide (Lasix) 40 mg IVP BID [facility] Last Admin: 09/26/18 09:55 Dose: 40 mg Glucagon (Glucagen Diagnostic Kit) 0 mg IM STAT PRN; Protocol PRN Reason: Hypoglycemia Protocol Hydralazine HCl (Apresoline) 25 mg PO BID [facility] Last Admin: 09/26/18 09:55 Dose: 25 mg Insulin Human Isoph/Insulin Regular (Novolin 70/30 (70/30 Units/Ml) 10 Ml) 40 units SC BID [facility] Last Admin: 09/26/18 09:55 Dose: 40 units Insulin Human Regular (Novolin R) 0 unit SC ACHS [facility]; Protocol Last Admin: 09/26/18 12:26 Dose: 10 unit Metformin HCl (Glucophage) 1,000 mg PO BIDCC [facility] Last Admin: 09/26/18 08:00 Dose: 1,000 mg Methylprednisolone (Solu-Medrol) 40 mg IVP Q12H [facility] Last Admin: 09/26/18 05:42 Dose: 40 mg Montelukast Sodium (Singulair) 10 mg PO [facility] Last Admin: 09/25/18 21:14 Dose: 10 mg Promethazine HCl (Phenergan Syrup) 12.5 mg PO Q6 [facility] Last Admin: 09/26/18 12:27 Dose: 12.5 mg Rosuvastatin Calcium (Crestor) 20 mg PO [facility] Last Admin: 09/25/18 21:14 Dose: 20 mg Sitagliptin Phosphate (Januvia) 50 mg PO DAILY [facility] Last Admin: 09/26/18 09:55 Dose: 50 mg - Labs Labs: 09/25/18 06:53 09/25/18 06:53 - Constitutional Appears: Well, Non-toxic - Head Exam Head Exam: ATRAUMATIC, NORMAL INSPECTION, NORMOCEPHALIC - Eye Exam Eye Exam: EOMI, Normal appearance, PERRL Pupil Exam: NORMAL ACCOMODATION - ENT Exam ENT Exam: Mucous Membranes Moist, Normal Exam - Respiratory Exam Respiratory Exam: Decreased Breath Sounds, Rhonchi, Wheezes. absent: Accessory Muscle Use, Chest Wall Tenderness, Clear to Ausculation Bilateral, Rales, Respiratory Distress - Cardiovascular Exam Cardiovascular Exam: REGULAR RHYTHM, +S1, +S2. absent: Murmur - GI/Abdominal Exam GI & Abdominal Exam: Soft, Normal Bowel Sounds. absent: Tenderness Assessment and Plan (1) Anxiety Status: Acute (2) Asthma Status: Acute (3) Asthma exacerbation Status: Acute (4) Bronchospasm Status: Acute (5) Congestive heart failure Status: Acute (6) Dyspnea Status: Acute (7) Exacerbation of asthma Status: Acute (8) Pneumonia Status: Acute (9) Respiratory distress Status: Acute
[2018-09-26] MEDS: Piperacill/Tazo 3.375gm in Dex 3.375 GM/50 ML BAG IVPB SCH ×2 (14:27→19:56)
[2018-09-26 16:24] VITALS: RESP 20
--- NOTE | 2018-09-26 22:33 | PN ---
DATE: 09/26/2018 SUBJECTIVE: The patient is seen today, 09/26/2018. She still has some wheezing. OBJECTIVE: VITAL SIGNS: Blood pressure 156/69, temperature 98.7, respiratory rate 20, and pulse 88. HEENT: Pupils equal and reactive to light. Normal appearing mucosa of the conjunctivae, oropharynx, and nasal membrane mucosa. NECK: Supple. No JVD. No carotid bruit. No lymph node. No thyromegaly. CHEST AND LUNGS: Bilateral symmetrical expansion. Good air exchange. No rales. There are scattered rhonchi. CARDIOVASCULAR SYSTEM: PMI not localized. S1, S2. No additional sounds. ABDOMEN: Normoactive bowel sounds. No tenderness, no organomegaly. No masses. EXTREMITIES: No cyanosis, no clubbing, no edema. CENTRAL NERVOUS SYSTEM: Alert, awake, oriented x2. No neurological deficit could be appreciated. ASSESSMENT: 1. Exacerbation of bronchial asthma. 2. Bilateral pneumonia. 3. Hypertension. 4. Type II diabetes mellitus with hyperglycemia. PLAN: Add Claritin to Singulair as IgE level is elevated. Continue current antibiotics and taper steroids as tolerated. If patient is stable, we will discharge home tomorrow to follow with traffic supervisor. Continue the diuretics. Continue tapering steroids and give bronchodilators and Mucomyst. Georges Reyna MD
[2018-09-27] MEDS: Promethazine 12.5 mg/10 ml Syrup PO SCH ×3 (00:22→12:35)
[2018-09-27] MEDS: Piperacill/Tazo 3.375gm in Dex 3.375 GM/50 ML BAG IVPB SCH ×3 (02:47→13:26)
[2018-09-27] MEDS: Albuterol-Ipratrop 3 mg / 0.5 (3 ml) UD INH SCH ×3 (03:15→11:14)
[2018-09-27] MEDS: Acetylcysteine 20% Inhal Soln (4ml) INH SCH ×2 (03:15→07:20)
[2018-09-27] MEDS: MethylPREDNISolone 40 mg Vial IVP SCH (05:19)
[2018-09-27] MEDS: (Novolin R) Insulin Human Regular 100 units/ml vial SC SCH ×2 (08:00→12:35)
[2018-09-27 08:19] VITALS: TEMP 98.2
[2018-09-27] MEDS: (Novolin 70/30) NPH/Regular 70/30 Units/ml 10 ml vial SC SCH (09:33)
--- NOTE | 2018-09-27 10:17 | CP.PCM.PN ---
Subjective - Date & Time of Evaluation Date of Evaluation: 09/27/18 Time of Evaluation: 10:11 - Subjective Subjective: Medicine Progress Note for Dr. Gimenez's service S/E at bedside. Reports much improved breathing status from admission Speaking in full sentences and able to walk without sob. Objective - Vital Signs/Intake and Output Vital Signs (last 24 hours): Temp Pulse Resp BP Pulse Ox 98.2 F 93 H 20 177/81 H 94 L 09/27/18 07:00 09/27/18 07:00 09/27/18 07:00 09/27/18 09:34 09/27/18 07:00 - Medications Medications: Current Medications Acetylcysteine (Acetylcysteine 20%) 4 ml INH RQ6 [facility] Last Admin: 09/27/18 03:15 Dose: 4 ml Albuterol (Ventolin Hfa 90 Mcg/Actuation (8 G)) 1 puff INH RQ6 PRN PRN Reason: Shortness of Breath Albuterol/Ipratropium (Duoneb 3 Mg/0.5 Mg (3 Ml) Ud) 3 ml INH RQ4 [facility] Last Admin: 09/27/18 03:15 Dose: 3 ml Alprazolam (Xanax) 0.25 mg PO BID PRN PRN Reason: Anxiety Stop: 09/27/18 18:01 Bisoprolol Fumarate (Zebeta) 5 mg PO BID [facility] Last Admin: 09/27/18 09:33 Dose: 5 mg Dextrose (Dextrose 50% Inj) 0 ml IV STAT PRN; Protocol PRN Reason: Hypoglycemia Protocol Dextrose (Glutose 15) 0 gm PO ONCE PRN; Protocol PRN Reason: Hypoglycemia Protocol Furosemide (Lasix) 40 mg IVP BID [facility] Last Admin: 09/27/18 09:34 Dose: 40 mg Glucagon (Glucagen Diagnostic Kit) 0 mg IM STAT PRN; Protocol PRN Reason: Hypoglycemia Protocol Hydralazine HCl (Apresoline) 25 mg PO BID [facility] Last Admin: 09/27/18 09:32 Dose: 25 mg Piperacillin Sod/Tazobactam Sod (Zosyn 3.375 Gm Iv Premix) 3.375 gm in 50 mls @ 100 mls/hr IVPB Q6H [facility]; Protocol Last Admin: 09/27/18 08:23 Dose: 100 mls/hr Insulin Human Isoph/Insulin Regular (Novolin 70/30 (70/30 Units/Ml) 10 Ml) 40 units SC BID [facility] Last Admin: 09/27/18 09:33 Dose: 40 units Insulin Human Regular (Novolin R) 0 unit SC ACHS [facility]; Protocol Last Admin: 09/27/18 08:00 Dose: Not Given Loratadine (Claritin) 10 mg PO DAILY [facility] Last Admin: 09/27/18 09:33 Dose: 10 mg Metformin HCl (Glucophage) 1,000 mg PO BIDCC [facility] Last Admin: 09/27/18 08:54 Dose: 1,000 mg Methylprednisolone (Solu-Medrol) 40 mg IVP Q12H [facility] Last Admin: 09/27/18 05:19 Dose: 40 mg Montelukast Sodium (Singulair) 10 mg PO [facility] Last Admin: 09/26/18 22:03 Dose: 10 mg Promethazine HCl (Phenergan Syrup) 12.5 mg PO Q6 [facility] Last Admin: 09/27/18 05:19 Dose: 12.5 mg Rosuvastatin Calcium (Crestor) 20 mg PO [facility] Last Admin: 09/26/18 22:02 Dose: 20 mg Sitagliptin Phosphate (Januvia) 50 mg PO DAILY [facility] Last Admin: 09/27/18 09:33 Dose: 50 mg - Labs Labs: 09/25/18 06:53 09/25/18 06:53 - Constitutional Appears: Non-toxic, No Acute Distress - Head Exam Head Exam: NORMAL INSPECTION - Eye Exam Eye Exam: EOMI, Normal appearance - ENT Exam ENT Exam: Mucous Membranes Dry - Respiratory Exam Respiratory Exam: Decreased Breath Sounds, Wheezes, NORMAL BREATHING PATTERN. absent: Clear to Ausculation Bilateral, Rales, Rhonchi - Cardiovascular Exam Cardiovascular Exam: REGULAR RHYTHM, +S1, +S2 - GI/Abdominal Exam GI & Abdominal Exam: Soft, Normal Bowel Sounds - Extremities Exam Extremities Exam: Normal Inspection - Neurological Exam Neurological Exam: Awake, Oriented x3 - Psychiatric Exam Psychiatric exam: Normal Affect, Normal Mood - Skin Skin Exam: Dry, Intact, Normal Color Assessment and Plan - Assessment and Plan (Free Text) Assessment: 58 yo female w/ PMH of DM, CHF, HLD, HTN, blind 2/2 diabetic retinopathy, and astham admitted for sob. Pulm consulted for asthma exacerbation. Plan: A: Asthma Exacerbation P: Continue rescue inhaler as needed Singulair Continue IV steroids Elevated IgE; will need f/u outpatient for biologics treatment and further management Recommend outpatient oral steroid course
[2018-09-27 16:42] VITALS: BP 143/80; PULSE 100; O2SAT 95
--- NOTE | 2018-09-27 17:31 | CP.PCM.PN ---
Subjective - Date & Time of Evaluation Date of Evaluation: 09/27/18 Time of Evaluation: 17:32 - Subjective Subjective: alert, awake, no sob or chest pains. Objective - Vital Signs/Intake and Output Vital Signs (last 24 hours): Temp Pulse Resp BP Pulse Ox 98.2 F 100 H 20 143/80 95 09/27/18 15:41 09/27/18 15:41 09/27/18 15:41 09/27/18 15:41 09/27/18 15:41 - Medications Medications: Current Medications Acetylcysteine (Acetylcysteine 20%) 4 ml INH RQ6 [facility] Last Admin: 09/27/18 07:20 Dose: 4 ml Albuterol (Ventolin Hfa 90 Mcg/Actuation (8 G)) 1 puff INH RQ6 PRN PRN Reason: Shortness of Breath Albuterol/Ipratropium (Duoneb 3 Mg/0.5 Mg (3 Ml) Ud) 3 ml INH RQ4 [facility] Last Admin: 09/27/18 11:14 Dose: 3 ml Alprazolam (Xanax) 0.25 mg PO BID PRN PRN Reason: Anxiety Stop: 09/27/18 18:01 Bisoprolol Fumarate (Zebeta) 5 mg PO BID [facility] Last Admin: 09/27/18 09:33 Dose: 5 mg Dextrose (Dextrose 50% Inj) 0 ml IV STAT PRN; Protocol PRN Reason: Hypoglycemia Protocol Dextrose (Glutose 15) 0 gm PO ONCE PRN; Protocol PRN Reason: Hypoglycemia Protocol Furosemide (Lasix) 40 mg IVP BID [facility] Last Admin: 09/27/18 09:34 Dose: 40 mg Glucagon (Glucagen Diagnostic Kit) 0 mg IM STAT PRN; Protocol PRN Reason: Hypoglycemia Protocol Hydralazine HCl (Apresoline) 25 mg PO BID [facility] Last Admin: 09/27/18 09:32 Dose: 25 mg Piperacillin Sod/Tazobactam Sod (Zosyn 3.375 Gm Iv Premix) 3.375 gm in 50 mls @ 100 mls/hr IVPB Q6H [facility]; Protocol Last Admin: 09/27/18 13:26 Dose: 100 mls/hr Insulin Human Isoph/Insulin Regular (Novolin 70/30 (70/30 Units/Ml) 10 Ml) 40 units SC BID [facility] Last Admin: 09/27/18 09:33 Dose: 40 units Insulin Human Regular (Novolin R) 0 unit SC ACHS [facility]; Protocol Last Admin: 09/27/18 12:35 Dose: 10 unit Loratadine (Claritin) 10 mg PO DAILY [facility] Last Admin: 09/27/18 09:33 Dose: 10 mg Metformin HCl (Glucophage) 1,000 mg PO BIDCC [facility] Last Admin: 09/27/18 08:54 Dose: 1,000 mg Methylprednisolone (Solu-Medrol) 40 mg IVP Q12H [facility] Last Admin: 09/27/18 05:19 Dose: 40 mg Montelukast Sodium (Singulair) 10 mg PO HS [facility] Last Admin: 09/26/18 22:03 Dose: 10 mg Promethazine HCl (Phenergan Syrup) 12.5 mg PO Q6 [facility] Last Admin: 09/27/18 12:35 Dose: 12.5 mg Rosuvastatin Calcium (Crestor) 20 mg PO HS [facility] Last Admin: 09/26/18 22:02 Dose: 20 mg Sitagliptin Phosphate (Januvia) 50 mg PO DAILY [facility] Last Admin: 09/27/18 09:33 Dose: 50 mg - Labs Labs: 09/25/18 06:53 09/25/18 06:53 Assessment and Plan - Assessment and Plan (Free Text) Assessment: 58 year old female with CHF, admitted with asthma exacerbation, seen and examined. Alert and orientedx3, denies sob or chest pains, no active wheezing. Discussed with DR Reyna, plan to discharge home on oral steroids, nebulizer treatments at home as needed. Advised to follow up with PMD in 1 week.
--- NOTE | 2018-09-27 17:35 | PCM.HF ---
Heart Failure Core Measure - Heart Failure Ejection Fraction: 40 % or Greater (EF 55%) CARLOTA Inhibitor Prescribed: No Contraindication/Reason for not providing: on arb Beta-Doretha Prescribed: Bisoprolol Angiotensin II Receptor Doretha Prescribed: Yes AnticoagulationTherapy for Atrial Fibrillation/Atrialflutter: No Contraindication/Reason for not providing: no afib Aldosterone Antagonist Prescribed: No Contraindication/Reason for not providing: EF >40% Hydralazine Nitrate Prescribed: Yes Implantable Cardioverter Defibrillator Therapy: No Contraindication/Reason for not providing: EF >40% Cardiac Resynchronization Therapy Prescribed: No Contraindication/Reason for not providing: not indicated - Follow up Will be discharged to: Home Follow Up Date (must be within 7 days from discharge): 10/04/18 Follow Up Time: 10:00
--- NOTE | 2018-09-28 06:28 | DS ---
REASON FOR ADMISSION This is a 58-year-old [place] female with history of multiple medical problems who was admitted for exacerbation of bronchial asthma and pneumonia. HOSPITALIZATION COURSE: The patient was admitted to medical floor and she was started on IV antibiotics, bronchodilators and steroids. The patient had Cardiology consultation done by Dr. Villegas and Pulmonary consultation done by Dr. Gimenez. The patient did well, was slowly improving and she had an IgE level elevated and the patient was started on antihistamines as well as Singulair. The patient's symptoms improved and she was discharged on a tapered dose of steroids as well as Singulair and antihistamine. The patient is asked to follow up with Dr. Gimenez as well as with primary care physician, Dr. Reyna. 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 [facility] MD Axel
== END 2018-09-27 16:40 | disposition home or self-care (01) | DRG 193 ==
LOC: C.ER 02:23 → C.6T 05:13 → OBSVTOIN 09-21 15:42
PROVIDERS: ADMIT Internal Medicine; ATTEND Internal Medicine
DX: J18.9 Pneumonia, unspecified organism (principal); I50.43 Acute on chronic combined systolic (congestive) and diastolic (congestive) heart failure; J45.901 Unspecified asthma with (acute) exacerbation; Z68.41 Body mass index [BMI] 40.0-44.9, adult; E78.5 Hyperlipidemia, unspecified; F41.9 Anxiety disorder, unspecified; H54.8 Legal blindness, as defined in USA; I11.0 Hypertensive heart disease with heart failure; I25.10 Atherosclerotic heart disease of native coronary artery without angina pectoris; K44.9 Diaphragmatic hernia without obstruction or gangrene; E78.00 Pure hypercholesterolemia, unspecified; E11.40 Type 2 diabetes mellitus with diabetic neuropathy, unspecified; E11.319 Type 2 diabetes mellitus with unspecified diabetic retinopathy without macular edema; T38.0X5A Adverse effect of glucocorticoids and synthetic analogues, initial encounter; Z95.5 Presence of coronary angioplasty implant and graft; E11.65 Type 2 diabetes mellitus with hyperglycemia; E66.9 Obesity, unspecified